=== PATIENT | female | born 1965 | race Caucasian/White ===

== ENCOUNTER 2019-01-02 02:31 | Inpatient (IN) | payer MEDICAID ==
[~2019-01-02] VITALS: Ht 157.5 cm; Wt 104.0 kg
[2019-01-02] MEDS ORDERED: SOD CHLORIDE 0.9% 1,000 ML IV STA ×2 (02:45→04:58)
[2019-01-02] MEDS ORDERED: morphine 4 MG/ML VIAL IV STA (02:45)
[2019-01-02] MEDS ORDERED: ONDANSETRON 4 MG INJ IV STA (02:45)
--- NOTE | 2019-01-02 03:40 | ERD ---
ER Documentation Chief Complaint Chief Complaint upper AP rad to back. no n/v/d. diagnosed recently w/ liver CA HPI 53-year-old female who presents with her family member who is interpreting. It appears the patient was recently diagnosed within the past several weeks with liver cancer of unknown etiology. The patient was recently visiting from [place]. The patient was seen and treated in [place] during which time she had hospitalization, liver biopsy and was told that she had malignancy. There is no follow-up for the patient. She is presenting with persistent abdominal pain and fullness. She denies any fevers or chills. The pain is 8 out of 10, constant. No hematemesis or melena. The patient does not drink regularly. During the patient's encounter translation services were utilized Language: Kinyarwanda Source: Family ROS All systems reviewed and are negative except as per history of present illness. Medications Home Meds Reported Medications Levothyroxine Sodium* (Levothyroxine Sodium*) 100 Mcg Tablet, 100 MCG PO BEFORE BREAKFAST, #30 TAB 01/02/19 Allergies Allergies: Coded Allergies: No Known Allergy (Unverified , 01/02/19) PMhx/Soc Medical and Surgical Hx: pt denies Medical Hx, pt denies Surgical Hx Hx Miscellaneous Medical Probl: Yes (liver ca ) Hx Alcohol Use: No Hx Substance Use: No Hx Tobacco Use: No Smoking Status: Never smoker FmHx Family History: No diabetes Physical Exam Vitals Vital Signs Date Temp Pulse Resp B/P (MAP) Pulse Ox O2 O2 Flow FiO2 Time Delivery Rate 01/02/19 84 18 105/70 98 Room Air 05:00 (82) 01/02/19 87 31 89/59 (69) 94 Room Air 03:06 01/02/19 97.6 88 20 109/63 100 02:36 (78) Physical Exam General: Well developed, well nourished, no acute distress Head: Normocephalic, atraumatic. Eyes: Pupils equally reactive, EOM intact, scleral icterus ENT: Moist mucous membranes Neck: Supple, no lymphadenopathy Respiratory: Lungs clear bilaterally, no distress Cardiovascular: RRR, no murmurs, rubs, or gallops Abdominal: Protuberant with fullness in the right upper quadrant, mild tenderness. No peritonitis. : Deferred MSK: No edema, no unilateral swelling, 5/5 strength Neurologic: Alert and oriented, moving all extremities, normal speech, no focal weakness, no cerebellar signs Skin: No rash Psych: Normal mood Result Diagram: 01/02/19 0301 01/02/19 0301 Results 24 hrs Laboratory Tests Test 01/02/19 03:01 White Blood Count 15.9 10^3/ul Red Blood Count 2.71 10^6/ul Hemoglobin 7.9 g/dl Hematocrit 23.9 % Mean Corpuscular Volume 88.2 fl Mean Corpuscular Hemoglobin 29.2 pg Mean Corpuscular Hemoglobin Concent 33.1 g/dl Red Cell Distribution Width 17.0 % Platelet Count 576 10^3/UL Mean Platelet Volume 8.8 fl Immature Granulocytes % 2.200 % Neutrophils % 79.2 % Lymphocytes % 15.2 % Monocytes % 3.2 % Eosinophils % 0.1 % Basophils % 0.1 % Nucleated Red Blood Cells % 0.7 /100WBC Immature Granulocytes # 0.350 10^3/ul Neutrophils # 12.6 10^3/ul Lymphocytes # 2.4 10^3/ul Monocytes # 0.5 10^3/ul Eosinophils # 0.0 10^3/ul Basophils # 0.0 10^3/ul Nucleated Red Blood Cells # 0.1 10^3/ul Prothrombin Time 13.6 Sec Prothrombin Time Ratio 1.1 INR International Normalized Ratio 1.03 Activated Partial Thromboplast Time 44.5 Sec Sodium Level 142 mmol/L Potassium Level 4.0 mmol/L Chloride Level 110 mmol/L Carbon Dioxide Level 25 mmol/L Anion Gap 7 Blood Urea Nitrogen 14 mg/dl Creatinine 1.50 mg/dl Est Glomerular Filtrat Rate mL/min 36 mL/min Glucose Level 108 mg/dl Calcium Level 8.8 mg/dl Total Bilirubin 0.2 mg/dl Direct Bilirubin 0.00 mg/dl Indirect Bilirubin 0.2 mg/dl Aspartate Amino Transf (AST/SGOT) 112 IU/L Alanine Aminotransferase (ALT/SGPT) 29 IU/L Alkaline Phosphatase 513 IU/L Total Protein 6.0 g/dl Albumin 2.4 g/dl Globulin 3.60 g/dl Albumin/Globulin Ratio 0.66 Lipase 71 U/L Current Medications Medications Dose Sig/Maria Del Carmen Start Time Status Last (Trade) Ordered Route PRN Stop Time Admin Dose Reason Admin Sodium 1,000 ml @ Q1H STAT 01/02/19 DC 01/02/19 Chloride 1,000 mls/hr IV 02:45 03:12 01/02/19 03:44 Morphine 4 mg ONCE STAT 01/02/19 DC 01/02/19 Sulfate IV 02:45 03:13 (morphine) 01/02/19 02:46 Ondansetron 4 mg ONCE STAT 01/02/19 DC 01/02/19 HCl (Zofran IV 02:45 03:12 Inj) 01/02/19 02:46 Sodium 1,000 ml @ Q1H STAT 01/02/19 01/02/19 Chloride 1,000 mls/hr IV 04:58 05:07 01/02/19 05:57 Ondansetron 4 mg BRIDGE ORDER 01/02/19 HCl (Zofran PRN IV 05:30 Inj) NAUSEA/VOMITI 01/03/19 05:29 NG 650 mg ER BRIDGE 01/02/19 Acetaminophen PRN PO 05:30 (Tylenol .MILD PAIN 01/03/19 05:29 Tab) 1-3 OR TEMP Procedures/MDM EKG, MONITORS, & DIAGNOSTIC IMAGING: CT abdomen pelvis Verbal report reveals multiple abnormality's of the liver and gallbladder concerning for malignancy. Limited exam, recommend further imaging with possible contrast versus MRI LAB INTERPRETATION: I reviewed the laboratory testing and it shows anemia, renal insufficiency MEDICAL DECISION MAKING: The patient presents with a new diagnosis of liver malignancy of unclear etiology. Patient had work-up and biopsy at an inpatient but they do not present with any of this information here in the emergency room setting. 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 The family is unsure of any sort of follow-up which I believe is what is prompting the visit to the emergency room other than pain. We will repeat laboratory testing and CT imaging to identify potential life threats. Patient may benefit from hospitalization for further work-up for malignancy though [place] [facility] [place]. ER COURSE: * Patient was given IV fluids and pain control medication. The patient had labile blood pressure but likely secondary to hepatic involvement. No eviden ce of infectious process. Hemorrhagic process. * Given the patient's new malignancy with poor follow-up and persistent abdominal pain I believe inpatient hospitalization would be appropriate to further stage and evaluate this malignancy and transition the patient to outpatient care for her new diagnosis. * Given the lability of her blood pressure and multiple abnormalities of her blood work including anemia and renal insufficiency hospitalization seems appropriate. CONSULTATION: [None] DISPOSITION PLAN: Accepting care team and consultations: I discussed the current laboratory data, diagnostic imaging and emergency care provided. Admitting team: Dr. Callejas Admitting team indication: Insurance directed Departure Diagnosis: Primary Impression: Abdominal pain Abdominal location: generalized Qualified Codes: R10.84 - Generalized abdominal pain Additional Impressions: Intra-abdominal malignant neoplasm Anemia Anemia type: unspecified type Qualified Codes: D64.9 - Anemia, unspecified Acute renal insufficiency Condition: Stable LINK RÍOS MD Jan 02, 2019 03:40
[2019-01-02] MEDS ORDERED: LEVO100T8 PO (04:29)
[2019-01-02] MEDS ORDERED: ONDANSETRON 4 MG INJ IV PRN ×2 (05:30→07:00)
[2019-01-02] MEDS ORDERED: ACETAMINOPHEN 325 MG TAB PO PRN (05:30)
[2019-01-02 06:30] VITALS: BP 105/59; PULSE 79; RESP 18
[2019-01-02 06:46] VITALS: Ht 157.5 cm; Wt 104.0 kg
--- NOTE | 2019-01-02 06:51 | HP ---
Date/Time of Note Date/Time of Note DATE: 01/02/19 TIME: 06:41 Assessment/Plan VTE Prophylaxis Pharmacological prophylaxis: heparin Lines/Catheters IV Catheter Type (from Nrsg): Peripheral IV Assessment/Plan Assessment/Plan 1. Recently diagnosed liver cancer -Patient was recently diagnosed with liver cancer in [place] after a biopsy was done. Patient without follow-up -Oncology consult -Obtain records from [place], then we will do further imaging including metastatic work-up 2. Abdominal pain: Secondary to above -Pain management 3. Anemia, likely of malignancy -Will however evaluate for iron deficiency and check FOBT as well 4. NAILA versus CKD -Nephrology consult -Obtain renal ultrasound -Urine electrolytes Result Diagram: 01/02/19 0301 01/02/19 0301 Results 24hrs Laboratory Tests Test 01/02/19 03:01 White Blood Count 15.9 H Red Blood Count 2.71 L Hemoglobin 7.9 L Hematocrit 23.9 L Mean Corpuscular Volume 88.2 Mean Corpuscular Hemoglobin 29.2 Mean Corpuscular Hemoglobin Concent 33.1 Red Cell Distribution Width 17.0 H Platelet Count 576 H Mean Platelet Volume 8.8 Immature Granulocytes % 2.200 H Neutrophils % 79.2 H Lymphocytes % 15.2 Monocytes % 3.2 Eosinophils % 0.1 Basophils % 0.1 Nucleated Red Blood Cells % 0.7 H Immature Granulocytes # 0.350 H Neutrophils # 12.6 H Lymphocytes # 2.4 Monocytes # 0.5 Eosinophils # 0.0 Basophils # 0.0 Nucleated Red Blood Cells # 0.1 H Prothrombin Time 13.6 Prothrombin Time Ratio 1.1 INR International Normalized Ratio 1.03 Activated Partial Thromboplast Time 44.5 H Sodium Level 142 Potassium Level 4.0 Chloride Level 110 Carbon Dioxide Level 25 Anion Gap 7 Blood Urea Nitrogen 14 Creatinine 1.50 H Est Glomerular Filtrat Rate mL/min 36 L Glucose Level 108 Calcium Level 8.8 Total Bilirubin 0.2 Direct Bilirubin 0.00 Indirect Bilirubin 0.2 Aspartate Amino Transf (AST/SGOT) 112 H Alanine Aminotransferase (ALT/SGPT) 29 Alkaline Phosphatase 513 H Total Protein 6.0 L Albumin 2.4 L Globulin 3.60 H Albumin/Globulin Ratio 0.66 Lipase 71 HPI/ROS Admit Date/Time Admit Date/Time Jan 02, 2019 at 05:28 Hx of Present Illness This is a 53-year-old female with history of recently diagnosed liver cancer who presented to the ER complaining of abdominal pain. Patient was recently diagnosed with liver cancer in [place] (last week). She initially presented to [facility] in [place] complaining of abdominal pain and liver biopsy was performed and reportedly was told she had malignancy. Patient presented here with persistent abdominal pain. She also does not have a follow-up with an oncologist. Patient niece who was at the bedside helped with history. Patient is complaining of epigastric/mid abdominal with radiation to RUQ area. When presented to ER, vitals were stable. Labs shows a WBC of 16,000, hemoglobin 7.9, creatinine 1.5, AST 112, alk phos around 500. CT abdomen/pelvis without contrast shows the following: Diffusely enlarged and inhomogeneous appearance of the liver, appearing to contain multiple mass lesions within. There is also diffuse inhomogeneity within the gallbladder fossa, with enlargement of the gallbladder, without adjacent fat stranding to suggest acute cholecystitis. The findings may reflect primary liver or gallbladder neoplasm. There is associated adenopathy in the arun hepatis. There is some third spacing of fluids with generalized soft tissue anasarca, small bilateral pleural and pericardial effusions and small volume of ascites. No intra-abdominal or pelvic abscess or free air, nor evidence of intestinal obstruction is seen. PMH/Family/Social Past Medical History Past Surgical Hx: other (see hpi) Family History Significant Family History: no pertinent family hx Social History Alcohol Use: none Smoking Status: Never smoker Drug Use: none Exam Constitutional: other (no acute distress) Head: normocephalic, atraumatic Eyes: EOMI, PERRL Respiratory: clear to auscultation, normal air movement Cardiovascular: nl pulses Gastrointestinal: soft Extremities: normal pulses Medications Current Medications Ondansetron HCl (Zofran Inj) 4 mg BRIDGE ORDER PRN IV NAUSEA/VOMITING; Start 01/02/19 at 05:30; Stop 01/03/19 at 05:29 Acetaminophen (Tylenol Tab) 650 mg ER BRIDGE PRN PO .MILD PAIN 1-3 OR TEMP; Start 01/02/19 at 05:30; Stop 01/03/19 at 05:29 IV Flush (NS 3 ml) 3 ml PER PROTOCOL IV ; Start 01/02/19 at 07:00; Status UNV Ondansetron HCl (Zofran Inj) 4 mg Q6H PRN IV NAUSEA/VOMITING; Start 01/02/19 at 07:00; Status UNV Acetaminophen (Tylenol Tab) 650 mg Q6H PRN PO .PAIN 1-3 OR TEMP; Start 01/02/19 at 07:00; Status UNV Albuterol/ Ipratropium (Duoneb) 3 ml Q2H RESP THERAPY PRN HHN SHORTNESS OF BREATH; Start 01/02/19 at 07:00; Status UNV Coded Allergies: No Known Allergy (Unverified , 01/02/19) Social History Smoking Status: Never smoker Exam/Review of Systems Vital Signs Vitals Vital Signs Date Temp Pulse Resp B/P (MAP) Pulse Ox O2 O2 Flow FiO2 Time Delivery Rate 01/02/19 82 18 101/74 98 Room Air 05:52 (83) 01/02/19 97.6 02:36 Intake and Output 01/01/19 01/01/19 01/02/19 1515:00 23:00 07:00 IntakeIntake Total 1000 ml BalanceBalance 1000 ml ELEONORA SCHROEDER MD Jan 02, 2019 06:51
[2019-01-02] MEDS ORDERED: ALBUTEROL/IPRATROPIUM (NEB) 3 ML AMP HHN PRN (07:00)
[2019-01-02 07:46] VITALS: BP 101/61; PULSE 85; RESP 20
[2019-01-02] MEDS: HYDROmorphONE 1 MG/ML SYG IV PRN ×3 (10:04→23:28)
[2019-01-02 13:55] VITALS: BP 109/63; PULSE 101; RESP 20
--- NOTE | 2019-01-02 15:45 | PN ---
Date/Time of Note Date/Time of Note DATE: 01/02/19 TIME: 15:44 Assessment/Plan VTE [place]axis [place] [facility] [place]: 4 SCD applied (from Ns): Yes Pharmacological prophylaxis: heparin Lines/Catheters IV C[facility] Type [facility]from [facility] Saline Lock Assessment/Plan Hospital Course Comfortable No distress RRR CTAB Distended, soft, + HSM No edema A/P: 53 yo female who presents for management of newly diagnosed liver cancer - Oncology consult pending - MRI results noted - Biopsy results from [place] have been requested Result Diagram: 01/02/19 0301 01/02/19 0301 Results 24hrs Laboratory Tests Test 01/02/19 03:01 White Blood Count 15.9 H Red Blood Count 2.71 L Hemoglobin 7.9 L Hematocrit 23.9 L Mean Corpuscular Volume 88.2 Mean Corpuscular Hemoglobin 29.2 Mean Corpuscular Hemoglobin Concent 33.1 Red Cell Distribution Width 17.0 H Platelet Count 576 H Mean Platelet Volume 8.8 Immature Granulocytes % 2.200 H Neutrophils % 79.2 H Lymphocytes % 15.2 Monocytes % 3.2 Eosinophils % 0.1 Basophils % 0.1 Nucleated Red Blood Cells % 0.7 H Immature Granulocytes # 0.350 H Neutrophils # 12.6 H Lymphocytes # 2.4 Monocytes # 0.5 Eosinophils # 0.0 Basophils # 0.0 Nucleated Red Blood Cells # 0.1 H Prothrombin Time 13.6 Prothrombin Time Ratio 1.1 INR International Normalized Ratio 1.03 Activated Partial Thromboplast Time 44.5 H Sodium Level 142 Potassium Level 4.0 Chloride Level 110 Carbon Dioxide Level 25 Anion Gap 7 Blood Urea Nitrogen 14 Creatinine 1.50 H Est Glomerular Filtrat Rate mL/min 36 L Glucose Level 108 Calcium Level 8.8 Total Bilirubin 0.2 Direct Bilirubin 0.00 Indirect Bilirubin 0.2 Aspartate Amino Transf (AST/SGOT) 112 H Alanine Aminotransferase (ALT/SGPT) 29 Alkaline Phosphatase 513 H Total Protein 6.0 L Albumin 2.4 L Globulin 3.60 H Albumin/Globulin Ratio 0.66 Lipase 71 Subjective 24 Hr Interval Summary Free Text/Dictation MRI shows diffuse liver lesions patient is comfortable Exam/Review of Systems Exam Vitals Vital Signs Date Temp Pulse Resp B/P (MAP) Pulse Ox O2 O2 Flow FiO2 Time Delivery Rate 01/02/19 98.6 101 20 109/63 98 13:55 (78) 01/02/19 Room Air 05:52 Intake and Output 01/01/19 01/01/19 01/02/19 1515:00 23:00 07:00 IntakeIntake Total 1000 ml BalanceBalance 1000 ml Results Results 24hrs Laboratory Tests Test 01/02/19 03:01 White Blood Count 15.9 H Red Blood Count 2.71 L Hemoglobin 7.9 L Hematocrit 23.9 L Mean Corpuscular Volume 88.2 Mean Corpuscular Hemoglobin 29.2 Mean Corpuscular Hemoglobin Concent 33.1 Red Cell Distribution Width 17.0 H Platelet Count 576 H Mean Platelet Volume 8.8 Immature Granulocytes % 2.200 H Neutrophils % 79.2 H Lymphocytes % 15.2 Monocytes % 3.2 Eosinophils % 0.1 Basophils % 0.1 Nucleated Red Blood Cells % 0.7 H Immature Granulocytes # 0.350 H Neutrophils # 12.6 H Lymphocytes # 2.4 Monocytes # 0.5 Eosinophils # 0.0 Basophils # 0.0 Nucleated Red Blood Cells # 0.1 H Prothrombin Time 13.6 Prothrombin Time Ratio 1.1 INR International Normalized Ratio 1.03 Activated Partial Thromboplast Time 44.5 H Sodium Level 142 Potassium Level 4.0 Chloride Level 110 Carbon Dioxide Level 25 Anion Gap 7 Blood Urea Nitrogen 14 Creatinine 1.50 H Est Glomerular Filtrat Rate mL/min 36 L Glucose Level 108 Calcium Level 8.8 Total Bilirubin 0.2 Direct Bilirubin 0.00 Indirect Bilirubin 0.2 Aspartate Amino Transf (AST/SGOT) 112 H Alanine Aminotransferase (ALT/SGPT) 29 Alkaline Phosphatase 513 H Total Protein 6.0 L Albumin 2.4 L Globulin 3.60 H Albumin/Globulin Ratio 0.66 Lipase 71 Medications Medication Current Medications Ondansetron HCl (Zofran Inj) 4 mg BRIDGE ORDER PRN IV NAUSEA/VOMITING; Start 01/02/19 at 05:30; Stop 01/03/19 at 05:29 Acetaminophen (Tylenol Tab) 650 mg ER BRIDGE PRN PO .MILD PAIN 1-3 OR TEMP; Start 01/02/19 at 05:30; Stop 01/03/19 at 05:29 IV Flush (NS 3 ml) 3 ml PER PROTOCOL IV ; Start 01/02/19 at 07:00 Ondansetron HCl (Zofran Inj) 4 mg Q6H PRN IV NAUSEA/VOMITING; Start 01/02/19 at 07:00 Acetaminophen (Tylenol Tab) 650 mg Q6H PRN PO .PAIN 1-3 OR TEMP; Start 01/02/19 at 07:00 Albuterol/ Ipratropium (Duoneb) 3 ml Q2H RESP THERAPY PRN HHN SHORTNESS OF BREATH; Start 01/02/19 at 07:00 Hydromorphone HCl (Dilaudid) 1 mg Q3H PRN IV SEVERE PAIN LEVEL 7-10 Last administered on 01/02/19at 10:04; Admin Dose 1 MG; Start 01/02/19 at 08:30 MESSI DORMAN MD Jan 02, 2019 15:45
--- NOTE | 2019-01-02 15:59 | CONS ---
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 Repeat imaging in our hospital shows an inflammed distended gallbladder with multiple liver masses. # Multiple liver masses with concern of possible metastatic neuroendocrine carcinoma from possibly the gallbladder. -The pathology report from the outside hospital is not very clear and I recommend another biopsy of the liver. I am not sure if her pain is from the liver masses or the inflammed gallbladder. If the pain does not subside, then we may need a surgical consult to remove the gallbladder which may help with pain. There are stones in the gallbladder on the MRI. -Will check AFP, CEA, CA 19-9. -Metastatic neuroendocrine tumors are quite rare and can differ widely in terms of proliferation rate. There was no Ki67 to indicate if this is a small cell aggressive cancer. -Unfortunately this looks like a metastatic process and not primary HCC and thus incurable. -The only treatment would be some sort of systemic chemotherapy which can be decided upon outpatient. -Patient will likely be following with Dr. Hutchins and I will coordinate the care with her. -After the biopsy is completed and if patient is controlled, then patient can be d/c and we will follow up with her in our clinic. -Discussed clinical course with the patient and she agrees with the plan. Thank you to Dr. Callejas for allowing us to participate in the care of this patient. Consultation Date/Type/Reason Admit Date/Time Jan 02, 2019 at 05:28 Date of Consultation: Jan 02, 2019 Type of Consult oncology consultation Reason for Consultation liver masses Date/Time of Note DATE: 01/02/19 TIME: 15:46 Hx of Present Illness 53 yo F with PMH hypothyroidism who was in her normal state of health until three weeks prior to admission when she developed epigastric abdominal pain radiating across the side and to the back. She stated that the pain was co nstant and was not relieved with any medication. She denies any nausea, vomiting, diarrhea, or constipation. She denies any weight loss or appetite loss. She denies any hematochezia or melena. She denies any shortness of breath or chest pain. She was living in [place] at the time and thus went to [facility] and a CT scan supposedly show multiple liver masses. She had a biopsy of the mass which showed: Carcinoma with neuroendocrine features (stains were positive for CAM 5.2, CKAE1 /AE3; CK7, CK20, CK903, chromgranin, ER, arginase-1, pax 8 and nuclear beta- catenin were negative) Patient was discharged from the hospital and due to having more family here in [place] moved down here and was admitted for the same abdominal pain. Oncologist in [place] is Dr. Janes Renteria, however patient stated that he did not give them an exact plan of action. CT scan done here showed: Diffusely enlarged and inhomogeneous appearance of the liver, appearing to contain multiple mass lesions within. There is also diffuse inhomogeneity within the gallbladder fossa, with enlargement of the gallbladder, without adjacent fat stranding to suggest acute cholecystitis. The findings may reflect primary liver or gallbladder neoplasm. There is associated adenopathy in the arun hepatis. There is some third spacing of fluids with generalized soft tissue anasarca, small bilateral pleural and pericardial effusions and small volume of ascites. No intra-abdominal or pelvic abscess or free air, nor evidence of intestinal obstruction is seen. MRI abdomen showed: There is prominent enlarged with numerous hepatic mass is seen diffusely throughout the hepatic parenchyma and many of these appear co nfluent encompassing the majority of the hepatic parenchyma resulting in its enlargement. Masses are seen diffusely throughout the left and right hepatic lobes and within the caudate lobe with an expanded appearance. Mild ascites is present with anasarca and this could be related to liver dysfunction. Numerous gallstones are seen without evidence of cholecystitis. Tumor markers pending. PMH: as above PSxH: none SH: denies tobacco, ETOH, or IVDA. FH: Denies any family history of blood disorders or cancers. Meds: see list All: NKDA Constitutional: improved Eyes: no complaints ENT: no complaints Respiratory: no complaints Cardiovascular: no complaints Gastrointestinal: pain Genitourinary: no complaints Musculoskeletal: no complaints Skin: no complaints Neurologic: no complaints Endocrine: no complaints Lymphatic: no complaints Psychological: no complaints, nl mood/affect Immunologic: no complaints Past Medical History Home Meds Reported Medications Levothyroxine Sodium* (Levothyroxine Sodium*) 100 Mcg Tablet, 100 MCG PO BEFORE BREAKFAST, #30 TAB 01/02/19 Medications Current Medications Ondansetron HCl (Zofran Inj) 4 mg BRIDGE ORDER PRN IV NAUSEA/VOMITING; Start 01/02/19 at 05:30; Stop 01/03/19 at 05:29 Acetaminophen (Tylenol Tab) 650 mg ER BRIDGE PRN PO .MILD PAIN 1-3 OR TEMP; Start 01/02/19 at 05:30; Stop 01/03/19 at 05:29 IV Flush (NS 3 ml) 3 ml PER PROTOCOL IV ; Start 01/02/19 at 07:00 Ondansetron HCl (Zofran Inj) 4 mg Q6H PRN IV NAUSEA/VOMITING; Start 01/02/19 at 07:00 Acetaminophen (Tylenol Tab) 650 mg Q6H PRN PO .PAIN 1-3 OR TEMP; Start 01/02/19 at 07:00 Albuterol/ Ipratropium (Duoneb) 3 ml Q2H RESP THERAPY PRN HHN SHORTNESS OF BREATH; Start 01/02/19 at 07:00 Hydromorphone HCl (Dilaudid) 1 mg Q3H PRN IV SEVERE PAIN LEVEL 7-10 Last administered on 01/02/19at 10:04; Admin Dose 1 MG; Start 01/02/19 at 08:30 Allergies: Coded Allergies: No Known Allergy (Unverified , 01/02/19) Social History Smoking Status: Never smoker Exam/Review of Systems Exam Vitals Vital Signs Date Temp Pulse Resp B/P (MAP) Pulse Ox O2 O2 Flow FiO2 Time Delivery Rate 01/02/19 98.6 101 20 109/63 98 13:55 (78) 01/02/19 Room Air 05:52 Intake and Output 01/01/19 01/01/19 01/02/19 1515:00 23:00 07:00 IntakeIntake Total 1000 ml BalanceBalance 1000 ml Constitutional: alert, oriented, well developed Psych: no complaints, nl mood/affect Head: normocephalic, atraumatic Eyes: nl conjunctiva, EOMI, nl lids, nl sclera, PERRL ENMT: nl external ears & nose, nl lips & teeth, nl nasal mucosa & septum Neck: supple, non-tender Respiratory: clear to auscultation, normal air movement Cardiovascular: regular rate and rhythm, nl pulses Gastrointestinal: bowel sounds, distended, rebound or guarding Musculoskeletal: nl extremities to inspection, nl gait and stance Extremities: normal pulses 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, nl mental status, nl speech, nl strength Skin: nl turgor; No rash or lesions Lymph: nl lymph nodes Results Result Diagram: 01/02/19 0301 01/02/19 0301 Results 24hrs Laboratory Tests Test 01/02/19 03:01 White Blood Count 15.9 H Red Blood Count 2.71 L Hemoglobin 7.9 L Hematocrit 23.9 L Mean Corpuscular Volume 88.2 Mean Corpuscular Hemoglobin 29.2 Mean Corpuscular Hemoglobin Concent 33.1 Red Cell Distribution Width 17.0 H Platelet Count 576 H Mean Platelet Volume 8.8 Immature Granulocytes % 2.200 H Neutrophils % 79.2 H Lymphocytes % 15.2 Monocytes % 3.2 Eosinophils % 0.1 Basophils % 0.1 Nucleated Red Blood Cells % 0.7 H Immature Granulocytes # 0.350 H Neutrophils # 12.6 H Lymphocytes # 2.4 Monocytes # 0.5 Eosinophils # 0.0 Basophils # 0.0 Nucleated Red Blood Cells # 0.1 H Prothrombin Time 13.6 Prothrombin Time Ratio 1.1 INR International Normalized Ratio 1.03 Activated Partial Thromboplast Time 44.5 H Sodium Level 142 Potassium Level 4.0 Chloride Level 110 Carbon Dioxide Level 25 Anion Gap 7 Blood Urea Nitrogen 14 Creatinine 1.50 H Est Glomerular Filtrat Rate mL/min 36 L Glucose Level 108 Calcium Level 8.8 Total Bilirubin 0.2 Direct Bilirubin 0.00 Indirect Bilirubin 0.2 Aspartate Amino Transf (AST/SGOT) 112 H Alanine Aminotransferase (ALT/SGPT) 29 Alkaline Phosphatase 513 H Total Protein 6.0 L Albumin 2.4 L Globulin 3.60 H Albumin/Globulin Ratio 0.66 Lipase 71 Medications Medication Current Medications Ondansetron HCl (Zofran Inj) 4 mg BRIDGE ORDER PRN IV NAUSEA/VOMITING; Start 01/02/19 at 05:30; Stop 01/03/19 at 05:29 Acetaminophen (Tylenol Tab) 650 mg ER BRIDGE PRN PO .MILD PAIN 1-3 OR TEMP; Start 01/02/19 at 05:30; Stop 01/03/19 at 05:29 IV Flush (NS 3 ml) 3 ml PER PROTOCOL IV ; Start 01/02/19 at 07:00 Ondansetron HCl (Zofran Inj) 4 mg Q6H PRN IV NAUSEA/VOMITING; Start 01/02/19 at 07:00 Acetaminophen (Tylenol Tab) 650 mg Q6H PRN PO .PAIN 1-3 OR TEMP; Start 01/02/19 at 07:00 Albuterol/ Ipratropium (Duoneb) 3 ml Q2H RESP THERAPY PRN HHN SHORTNESS OF BREATH; Start 01/02/19 at 07:00 Hydromorphone HCl (Dilaudid) 1 mg Q3H PRN IV SEVERE PAIN LEVEL 7-10 Last admi nistered on 01/02/19at 10:04; Admin Dose 1 MG; Start 01/02/19 at 08:30 SHAKA MALCOLM DO Jan 02, 2019 15:58
[2019-01-02] MEDS: NACL 0.9% 3 ML SYG IV SCH (18:11)
[2019-01-02 19:59] VITALS: BP 117/74; PULSE 108; RESP 18
[2019-01-03 02:19] VITALS: BP 116/73; PULSE 109; RESP 18
[2019-01-03] MEDS: HYDROmorphONE 1 MG/ML SYG IV PRN ×5 (05:04→20:09)
[2019-01-03 07:49] VITALS: BP 124/65; PULSE 106; RESP 20
[2019-01-03 13:38] VITALS: BP 117/72; PULSE 10; PULSE 70; RESP 20
[2019-01-03] MEDS: FUROSEMIDE 20 MG INJ IV SCH (15:01)
--- NOTE | 2019-01-03 15:03 | PN ---
Date/Time of Note Date/Time of Note DATE: 01/03/19 TIME: 15:02 Assessment/Plan VTE Prophylaxis Risk score (from Nsg)>0 risk: 5 SCD applied (from Nsg): Yes Pharmacological prophylaxis: heparin Lines/Catheters IV Catheter Type (from Nrsg): Saline Lock Assessment/Plan Hospital Course Comfortable No distress RRR CTAB Distended, soft, + HSM Mild edema A/P: 53 yo female who presents for management of newly diagnosed liver cancer - Oncology consult appreciated. Plan for repeat biopsy this week - Lasix 20 for edema/anasarca - MRI results noted NAILA vs CKD: - Monitor creatinine Result Diagram: 01/03/19 0540 01/03/19 0546 Results 24hrs Laboratory Tests Test 01/03/19 05:40 01/03/19 05:46 01/03/19 05:48 White Blood Count 18.8 H Red Blood Count 2.66 L Hemoglobin 7.8 L Hematocrit 24.3 L Mean Corpuscular Volume 91.4 Mean Corpuscular Hemoglobin 29.3 Mean Corpuscular Hemoglobin Concent 32.1 Red Cell Distribution Width 17.2 H Platelet Count 552 H Mean Platelet Volume 8.9 Immature Granulocytes % 2.100 H Neutrophils % 82.6 H Lymphocytes % 11.2 L Monocytes % 3.8 Eosinophils % 0.1 Basophils % 0.2 Nucleated Red Blood Cells % 0.4 H Immature Granulocytes # 0.390 H Neutrophils # 15.6 H Lymphocytes # 2.1 Monocytes # 0.7 Eosinophils # 0.0 Basophils # 0.0 Nucleated Red Blood Cells # 0.1 H Sodium Level 138 Potassium Level 4.2 Chloride Level 107 Carbon Dioxide Level 25 Anion Gap 6 Blood Urea Nitrogen 13 Creatinine 1.40 H Est Glomerular Filtrat Rate mL/min 39 L Glucose Level 80 Hemoglobin A1c 5.8 Calcium Level 8.8 Phosphorus Level 2.7 Magnesium Level 1.9 Iron Level 22 L Total Iron Binding Capacity 185 L Percent Iron Saturation 12 L Ferritin Pending Total Bilirubin 0.3 Direct Bilirubin 0.00 Indirect Bilirubin 0.3 Aspartate Amino Transf (AST/SGOT) 293 H Alanine Aminotransferase (ALT/SGPT) 51 Alkaline Phosphatase 499 H Total Protein 6.6 Albumin 2.6 L Globulin 4.00 H Albumin/Globulin Ratio 0.65 Triglycerides Level 148 Cholesterol Level 131 LDL Cholesterol, Calculated 81 HDL Cholesterol 20 L Cholesterol/HDL Ratio 6.5 Carcinoembryonic Antigen 1.1 CA 19-9 Antigen 4.4 Thyroid Stimulating Hormone (TSH) 23.200 H Hepatitis B Surface Antigen NEGATIVE Hepatitis B Surface Antibody NEGATIVE Hepatitis C Antibody NEGATIVE Alpha Fetoprotein 3.01 Subjective 24 Hr Interval Summary Free Text/Dictation No change to status Awaiting biopsy Exam/Review of Systems Exam Vitals Vital Signs Date Temp Pulse Resp B/P (MAP) Pulse Ox O2 O2 Flow FiO2 Time Delivery Rate 01/03/19 99.0 70 20 117/72 91 13:38 (87) 01/03/19 Nasal 2.0 08:40 Cannula Intake and Output 01/02/19 01/02/19 01/03/19 1515:00 23:00 07:00 IntakeIntake Total 1080 ml 700 ml 450 ml BalanceBalance 1080 ml 700 ml 450 ml Results Results 24hrs Laboratory Tests Test 01/03/19 05:40 01/03/19 05:46 01/03/19 05:48 White Blood Count 18.8 H Red Blood Count 2.66 L Hemoglobin 7.8 L Hematocrit 24.3 L Mean Corpuscular Volume 91.4 Mean Corpuscular Hemoglobin 29.3 Mean Corpuscular Hemoglobin Concent 32.1 Red Cell Distribution Width 17.2 H Platelet Count 552 H Mean Platelet Volume 8.9 Immature Granulocytes % 2.100 H Neutrophils % 82.6 H Lymphocytes % 11.2 L Monocytes % 3.8 Eosinophils % 0.1 Basophils % 0.2 Nucleated Red Blood Cells % 0.4 H Immature Granulocytes # 0.390 H Neutrophils # 15.6 H Lymphocytes # 2.1 Monocytes # 0.7 Eosinophils # 0.0 Basophils # 0.0 Nucleated Red Blood Cells # 0.1 H Sodium Level 138 Potassium Level 4.2 Chloride Level 107 Carbon Dioxide Level 25 Anion Gap 6 Blood Urea Nitrogen 13 Creatinine 1.40 H Est Glomerular Filtrat Rate mL/min 39 L Glucose Level 80 Hemoglobin A1c 5.8 Calcium Level 8.8 Phosphorus Level 2.7 Magnesium Level 1.9 Iron Level 22 L Total Iron Binding Capacity 185 L Percent Iron Saturation 12 L Ferritin Pending Total Bilirubin 0.3 Direct Bilirubin 0.00 Indirect Bilirubin 0.3 Aspartate Amino Transf (AST/SGOT) 293 H Alanine Aminotransferase (ALT/SGPT) 51 Alkaline Phosphatase 499 H Total Protein 6.6 Albumin 2.6 L Globulin 4.00 H Albumin/Globulin Ratio 0.65 Triglycerides Level 148 Cholesterol Level 131 LDL Cholesterol, Calculated 81 HDL Cholesterol 20 L Cholesterol/HDL Ratio 6.5 Carcinoembryonic Antigen 1.1 CA 19-9 Antigen 4.4 Thyroid Stimulating Hormone (TSH) 23.200 H Hepatitis B Surface Antigen NEGATIVE Hepatitis B Surface Antibody NEGATIVE Hepatitis C Antibody NEGATIVE Alpha Fetoprotein 3.01 Medications Medication Current Medications IV Flush (NS 3 ml) 3 ml PER PROTOCOL IV Last administered on 01/02/19at 18:11; Admin Dose 3 ML; Start 01/02/19 at 07:00 Ondansetron HCl (Zofran Inj) 4 mg Q6H PRN IV NAUSEA/VOMITING; Start 01/02/19 at 07:00 Acetaminophen (Tylenol Tab) 650 mg Q6H PRN PO .PAIN 1-3 OR TEMP; Start 01/02/19 at 07:00 Albuterol/ Ipratropium (Duoneb) 3 ml Q2H RESP THERAPY PRN HHN SHORTNESS OF BREATH; Start 01/02/19 at 07:00 Hydromorphone HCl (Dilaudid) 1 mg Q3H PRN IV SEVERE PAIN LEVEL 7-10 Last administered on 01/03/19at 12:59; Admin Dose 1 MG; Start 01/02/19 at 08:30 Furosemide (Lasix) 20 mg DAILY IV Last administered on 01/03/19at 15:01; Admin Dose 20 MG; Start 01/03/19 at 15:00 MESSI DORMAN MD Jan 03, 2019 15:03
[2019-01-03 19:50] VITALS: BP 122/72; PULSE 114; RESP 16
[2019-01-03] MEDS: POLYETHYLENE GLYCOL 17 GM PACKET PO SCH (20:09)
[2019-01-04] MEDS: HYDROmorphONE 1 MG/ML SYG IV PRN ×6 (00:59→22:36)
[2019-01-04 02:00] VITALS: BP 104/63; PULSE 107; RESP 16
[2019-01-04 07:51] VITALS: BP 108/60; PULSE 101; RESP 20
[2019-01-04] MEDS: FUROSEMIDE 20 MG INJ IV SCH (08:39)
[2019-01-04] MEDS: POLYETHYLENE GLYCOL 17 GM PACKET PO SCH ×2 (08:39→22:24)
--- NOTE | 2019-01-04 10:04 | CONS ---
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 Repeat imaging in our hospital shows an inflammed distended gallbladde r with multiple liver masses. # Multiple liver masses with concern of possible metastatic neuroendocrine carcinoma from possibly the gallbladder. -As stated previously by Dr. Eason, the pathology report from the outside hospital is not very clear and I recommend another biopsy of the liver. I am no t sure if her pain is from the liver masses or the inflammed gallbladder. If the pain does not subside, then we may need a surgical consult to remove the gallbladder which may help with pain. There are stones in the gallbladder on the MRI. -Will check AFP, CEA, CA 19-9. -Metastatic neuroendocrine tumors are quite rare and can differ widely in terms of proliferation rate. There was no Ki67 to indicate if this is a small cell aggressive cancer. -Unfortunately this looks like a metastatic process and not primary HCC and thus incurable. -The only treatment would be some sort of systemic chemotherapy which can be decided upon outpatient. -agree with repeat bx at this time Consultation Date/Type/Reason Admit Date/Time Jan 02, 2019 at 05:28 Initial Consult Date 01/02/19 Type of Consult oncology Reason for Consultation liver mass Requesting Provider: MESSI DORMAN MD Date/Time of Note DATE: 01/04/19 TIME: 10:03 24 HR Interval Summary Free Text/Dictation no acute overnight events. bx results from [facility] were reviewed and revealed neuroendocrine tumor of unknown primary. It did not determine if this was a high grade neuroendocrine tumor vs low grade. pt c/o pain over liver Exam/Review of Systems Exam Vitals Vital Signs Date Temp Pulse Resp B/P (MAP) Pulse Ox O2 O2 Flow FiO2 Time Delivery Rate 01/04/19 Nasal 2.0 08:00 Cannula 01/04/19 98.1 101 20 108/60 98 07:51 (76) Intake and Output 01/03/19 01/03/19 01/04/19 1515:00 23:00 07:00 IntakeIntake Total 1120 ml 480 ml 740 ml BalanceBalance 1120 ml 480 ml 740 ml Constitutional: alert, oriented Psych: no complaints, nl mood/affect Head: normocephalic Eyes: nl conjunctiva ENMT: nl external ears & nose Neck: supple Respiratory: clear to auscultation Results Result Diagram: 01/03/19 0540 01/03/19 0546 Medications Medication Current Medications IV Flush (NS 3 ml) 3 ml PER PROTOCOL IV Last administered on 01/02/19at 18:11; Admin Dose 3 ML; Start 01/02/19 at 07:00 Ondansetron HCl (Zofran Inj) 4 mg Q6H PRN IV NAUSEA/VOMITING; Start 01/02/19 at 07:00 Acetaminophen (Tylenol Tab) 650 mg Q6H PRN PO .PAIN 1-3 OR TEMP; Start 01/02/19 at 07:00 Albuterol/ Ipratropium (Duoneb) 3 ml Q2H RESP THERAPY PRN HHN SHORTNESS OF B REATH; Start 01/02/19 at 07:00 Hydromorphone HCl (Dilaudid) 1 mg Q3H PRN IV SEVERE PAIN LEVEL 7-10 Last administered on 01/04/19at 08:43; Admin Dose 1 MG; Start 01/02/19 at 08:30 Furosemide (Lasix) 20 mg DAILY IV Last administered on 01/04/19 08:39; Admin Dose 20 MG; Start 01/03/19 at 15:00 Polyethylene Glycol (Miralax) 17 gm BID PO Last administered on 01/04/19 08:39; Admin Dose 17 GM; Start 01/03/19 at 21:00 AALIYAH BUTLER M.D. Jan 04, 2019 10:04
[2019-01-04 14:05] VITALS: BP 103/57; PULSE 105; RESP 20
--- NOTE | 2019-01-04 16:18 | PN ---
Date/Time of Note Date/Time of Note DATE: 01/04/19 TIME: 16:18 Assessment/Plan VTE Prophylaxis Risk score (from Nsg)>0 risk: 5 SCD applied (from Nsg): Yes Pharmacological prophylaxis: heparin Lines/Catheters IV Catheter Type (from Nrsg): Saline Lock Assessment/Plan Hospital Course Comfortable No distress RRR CTAB Distended, soft, + HSM Mild edema A/P: 53 yo female who presents for management of newly diagnosed liver cancer - Oncology consult appreciated. Plan for repeat biopsy tomorrow - Lasix 20 for edema/anasarca - MRI results noted NAILA vs CKD: - Monitor creatinine Result Diagram: 01/03/19 0540 01/03/19 0546 Results 24hrs Laboratory Tests Test 01/04/19 10:29 Prothrombin Time 15.3 H Prothrombin Time Ratio 1.2 INR International Normalized Ratio 1.20 Activated Partial Thromboplast Time 48.7 H Subjective 24 Hr Interval Summary Free Text/Dictation Awaiting biopys, planned for tomorrow Exam/Review of Systems Exam Vitals Vital Signs Date Temp Pulse Resp B/P (MAP) Pulse Ox O2 O2 Flow FiO2 Time Delivery Rate 01/04/19 98.9 105 20 103/57 96 14:05 (72) 01/04/19 Nasal 2.0 08:00 Cannula Intake and Output 01/03/19 01/03/19 01/04/19 1515:00 23:00 07:00 IntakeIntake Total 1120 ml 480 ml 740 ml BalanceBalance 1120 ml 480 ml 740 ml Results Results 24hrs Laboratory Tests Test 01/04/19 10:29 Prothrombin Time 15.3 H Prothrombin Time Ratio 1.2 INR International Normalized Ratio 1.20 Activated Partial Thromboplast Time 48.7 H Medications Medication Current Medications IV Flush (NS 3 ml) 3 ml PER PROTOCOL IV Last administered on 01/02/19at 18:11; Admin Dose 3 ML; Start 01/02/19 at 07:00 Ondansetron HCl (Zofran Inj) 4 mg Q6H PRN IV NAUSEA/VOMITING; Start 01/02/19 at 07:00 Acetaminophen (Tylenol Tab) 650 mg Q6H PRN PO .PAIN 1-3 OR TEMP; Start 01/02/19 at 07:00 Albuterol/ Ipratropium (Duoneb) 3 ml Q2H RESP THERAPY PRN HHN SHORTNESS OF BREATH; Start 01/02/19 at 07:00 Hydromorphone HCl (Dilaudid) 1 mg Q3H PRN IV SEVERE PAIN LEVEL 7-10 Last adm inistered on 01/04/19 13:32; Admin Dose 1 MG; Start 01/02/19 at 08:30 Furosemide (Lasix) 20 mg DAILY IV Last administered on 01/04/19 08:39; Admin Dose 20 MG; Start 01/03/19 at 15:00 Polyethylene Glycol (Miralax) 17 gm BID PO Last administered on 01/04/19 08:39; Admin Dose 17 GM; Start 01/03/19 at 21:00 MESSI DORMAN MD Jan 04, 2019 16:18
[2019-01-04 19:46] VITALS: BP 123/67; PULSE 115; RESP 18
[2019-01-04 20:33] VITALS: PULSE 107
[2019-01-04 21:47] VITALS: PULSE 104
[2019-01-05 01:48] VITALS: BP 103/61; PULSE 107; RESP 20
[2019-01-05] MEDS: HYDROmorphONE 1 MG/ML SYG IV PRN ×5 (02:51→21:11)
[2019-01-05 07:46] VITALS: BP 108/60; PULSE 106; RESP 20
[2019-01-05] MEDS ORDERED: FENTAnyl 50 MCG/ML VIAL ONE ×2 (08:51→08:52)
[2019-01-05] MEDS ORDERED: MIDAZOLAM 1 MG/ML 2 ML INJ ONE (08:51)
[2019-01-05] MEDS ORDERED: LIDOCAINE 1% (MDV) 20 ML INJ ONE (09:26)
[2019-01-05] MEDS ORDERED: GELATIN 12MM X 7 MM SPONGE ONE (09:26)
[2019-01-05] MEDS: POLYETHYLENE GLYCOL 17 GM PACKET PO SCH ×2 (11:23→21:10)
[2019-01-05] MEDS: FUROSEMIDE 20 MG INJ IV SCH (11:23)
--- NOTE | 2019-01-05 12:17 | CONS ---
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 Repeat imaging in our hospital shows an inflammed distended gallbladde r with multiple liver masses. # Multiple liver masses with concern of possible metastatic neuroendocrine carcinoma from possibly the gallbladder. -bx at [facility] was consistent with adenocarcinoma -will order ANGELA testing as well to see if there are any targetable lesions -will start chemotherapy as an out patient -will discuss placing port a cath in the hospital in preparation for chemo Consultation Date/Type/Reason Admit Date/Time Jan 02, 2019 at 05:28 Initial Consult Date 01/02/19 Type of Consult oncology Reason for Consultation liver mass Requesting Provider: MESSI DORMAN MD Date/Time of Note DATE: 01/05/19 TIME: 12:12 24 HR Interval Summary Free Text/Dictation no acute overnight events. pt still has pain ATC Exam/Review of Systems Exam Vitals Vital Signs Date Temp Pulse Resp B/P (MAP) Pulse Ox O2 O2 Flow FiO2 Time Delivery Rate 01/05/19 Nasal 2.0 08:25 Cannula 01/05/19 98.4 106 20 108/60 95 07:46 (76) Intake and Output 01/04/19 01/04/19 01/05/19 1515:00 23:00 07:00 IntakeIntake Total 720 ml 600 ml 480 ml BalanceBalance 720 ml 600 ml 480 ml Constitutional: alert, oriented Psych: no complaints Head: normocephalic Eyes: nl conjunctiva ENMT: nl external ears & nose Neck: supple Respiratory: clear to auscultation Cardiovascular: regular rate and rhythm Gastrointestinal: soft Musculoskeletal: nl extremities to inspection Extremities: normal pulses Results Result Diagram: 01/05/19 0430 01/05/19 0430 Results 24hrs Laboratory Tests Test 01/05/19 04:30 White Blood Count 18.4 H Red Blood Count 2.50 L Hemoglobin 7.1 L Hematocrit 22.1 L Mean Corpuscular Volume 88.4 Mean Corpuscular Hemoglobin 28.4 L Mean Corpuscular Hemoglobin Concent 32.1 Red Cell Distribution Width 17.4 H Platelet Count 525 H Mean Platelet Volume 9.4 Immature Granulocytes % 2.000 H Neutrophils % 79.2 H Lymphocytes % 13.6 L Monocytes % 4.9 Eosinophils % 0.1 Basophils % 0.2 Nucleated Red Blood Cells % 0.4 H Immature Granulocytes # 0.370 H Neutrophils # 14.6 H Lymphocytes # 2.5 Monocytes # 0.9 Eosinophils # 0.0 Basophils # 0.0 Nucleated Red Blood Cells # 0.1 H Sodium Level 138 Potassium Level 4.1 Chloride Level 104 Carbon Dioxide Level 28 Anion Gap 6 Blood Urea Nitrogen 14 Creatinine 1.30 H Est Glomerular Filtrat Rate mL/min 43 L Glucose Level 94 Calcium Level 9.2 Medications Medication Current Medications IV Flush (NS 3 ml) 3 ml PER PROTOCOL IV Last administered on 01/02/19 18:11; Admin Dose 3 ML; Start 01/02/19 at 07:00 Ondansetron HCl (Zofran Inj) 4 mg Q6H PRN IV NAUSEA/VOMITING; Start 01/02/19 at 07:00 Acetaminophen (Tylenol Tab) 650 mg Q6H PRN PO .PAIN 1-3 OR TEMP; Start 01/02/19 at 07:00 Albuterol/ Ipratropium (Duoneb) 3 ml Q2H RESP THERAPY PRN HHN SHORTNESS OF BREATH; Start 01/02/19 at 07:00 Hydromorphone HCl (Dilaudid) 1 mg Q3H PRN IV SEVERE PAIN LEVEL 7-10 Last administered on 01/05/19 11:23; Admin Dose 1 MG; Start 01/02/19 at 08:30 Furosemide (Lasix) 20 mg DAILY IV Last administered on 01/05/19 11:23; Admin Dose 20 MG; Start 01/03/19 at 15:00 Polyethylene Glycol (Miralax) 17 gm BID PO Last administered on 01/05/19 11:23; Admin Dose 17 GM; Start 01/03/19 at 21:00 AALIYAH BUTLER M.D. Jan 05, 2019 12:17
[2019-01-05 14:33] VITALS: BP 102/60; PULSE 108; RESP 20
--- NOTE | 2019-01-05 14:43 | HPN ---
Date/Time of Note Date/Time of Note DATE: 01/05/19 TIME: 14:42 Interval H&P Admission Note Pt. seen H&P reviewed: No system changes DO MEEKS MD Jan 05, 2019 14:43
--- NOTE | 2019-01-05 18:04 | PN ---
Date/Time of Note Date/Time of Note DATE: 01/05/19 TIME: 18:04 Assessment/Plan VTE Prophylaxis Risk score (from Ns)>0 risk: 6 SCD applied (from Ns): Yes Pharmacological prophylaxis: heparin Lines/Catheters IV Catheter Type (from Nrs): Saline Lock Assessment/Plan Hospital Course Comfortable No distress RRR CTAB Distended, soft, + HSM Mild edema A/P: 53 yo female who presents for management of newly diagnosed liver cancer - Oncology consult appreciated. s/p repeate biopsy - Needs chemo port to be placed - Lasix 20 for edema/anasarca - MRI results noted NAILA vs CKD: - Monitor creatinine Result Diagram: 01/05/1942901/05/19 043 Results 24hrs Laboratory Tests Test 01/05/19 04:30 White Blood Count 18.4 H Red Blood Count 2.50 L Hemoglobin 7.1 L Hematocrit 22.1 L Mean Corpuscular Volume 88.4 Mean Corpuscular Hemoglobin 28.4 L Mean Corpuscular Hemoglobin Concent 32.1 Red Cell Distribution Width 17.4 H Platelet Count 525 H Mean Platelet Volume 9.4 Immature Granulocytes % 2.000 H Neutrophils % 79.2 H Lymphocytes % 13.6 L Monocytes % 4.9 Eosinophils % 0.1 Basophils % 0.2 Nucleated Red Blood Cells % 0.4 H Immature Granulocytes # 0.370 H Neutrophils # 14.6 H Lymphocytes # 2.5 Monocytes # 0.9 Eosinophils # 0.0 Basophils # 0.0 Nucleated Red Blood Cells # 0.1 H Sodium Level 138 Potassium Level 4.1 Chloride Level 104 Carbon Dioxide Level 28 Anion Gap 6 Blood Urea Nitrogen 14 Creatinine 1.30 H Est Glomerular Filtrat Rate mL/min 43 L Glucose Level 94 Calcium Level 9.2 Subjective 24 Hr Interval Summary Free Text/Dictation Doing well s/p biospy Exam/Review of Systems Exam Vitals Vital Signs Date Temp Pulse Resp B/P (MAP) Pulse Ox O2 O2 Flow FiO2 Time Delivery Rate 01/05/19 99.0 108 20 102/60 93 14:33 (74) 01/05/19 Nasal 2.0 08:25 Cannula Intake and Output 01/04/19 01/04/19 01/05/19 1515:00 23:00 07:00 IntakeIntake Total 720 ml 600 ml 480 ml BalanceBalance 720 ml 600 ml 480 ml Results Results 24hrs Laboratory Tests Test 01/05/19 04:30 White Blood Count 18.4 H Red Blood Count 2.50 L Hemoglobin 7.1 L Hematocrit 22.1 L Mean Corpuscular Volume 88.4 Mean Corpuscular Hemoglobin 28.4 L Mean Corpuscular Hemoglobin Concent 32.1 Red Cell Distribution Width 17.4 H Platelet Count 525 H Mean Platelet Volume 9.4 Immature Granulocytes % 2.000 H Neutrophils % 79.2 H Lymphocytes % 13.6 L Monocytes % 4.9 Eosinophils % 0.1 Basophils % 0.2 Nucleated Red Blood Cells % 0.4 H Immature Granulocytes # 0.370 H Neutrophils # 14.6 H Lymphocytes # 2.5 Monocytes # 0.9 Eosinophils # 0.0 Basophils # 0.0 Nucleated Red Blood Cells # 0.1 H Sodium Level 138 Potassium Level 4.1 Chloride Level 104 Carbon Dioxide Level 28 Anion Gap 6 Blood Urea Nitrogen 14 Creatinine 1.30 H Est Glomerular Filtrat Rate mL/min 43 L Glucose Level 94 Calcium Level 9.2 Medications Medication Current Medications IV Flush (NS 3 ml) 3 ml PER PROTOCOL IV Last administered on 01/02/19at 18:11; Admin Dose 3 ML; Start 01/02/19 at 07:00 Ondansetron HCl (Zofran Inj) 4 mg Q6H PRN IV NAUSEA/VOMITING; Start 01/02/19 at 07:00 Acetaminophen (Tylenol Tab) 650 mg Q6H PRN PO .PAIN 1-3 OR TEMP; Start 01/02/19 at 07:00 Albuterol/ Ipratropium (Duoneb) 3 ml Q2H RESP THERAPY PRN HHN SHORTNESS OF BREATH; Start 01/02/19 at 07:00 Hydromorphone HCl (Dilaudid) 1 mg Q3H PRN IV SEVERE PAIN LEVEL 7-10 Last administered on 01/05/19at 17:04; Admin Dose 1 MG; Start 01/02/19 at 08:30 Furosemide (Lasix) 20 mg DAILY IV Last administered on 01/05/19 11:23; Admin Dose 20 MG; Start 01/03/19 at 15:00 Polyethylene Glycol (Miralax) 17 gm BID PO Last administered on 01/05/19 11:23; Admin Dose 17 GM; Start 01/03/19 at 21:00 MESSI DORMAN MD Jan 05, 2019 18:04
[2019-01-05 19:44] VITALS: BP 124/71; PULSE 113; RESP 19
[2019-01-05] MEDS: ACETAMINOPHEN 325 MG TAB PO PRN (23:11)
[2019-01-06 02:24] VITALS: BP 98/58; PULSE 99; RESP 18
[2019-01-06] MEDS: HYDROmorphONE 1 MG/ML SYG IV PRN ×5 (04:21→21:22)
[2019-01-06 07:56] VITALS: BP 112/67; PULSE 103; RESP 18
[2019-01-06] MEDS: POLYETHYLENE GLYCOL 17 GM PACKET PO SCH ×2 (08:18→21:21)
[2019-01-06] MEDS: FUROSEMIDE 20 MG INJ IV SCH (08:18)
[2019-01-06] MEDS: NACL 0.9% 3 ML SYG IV SCH (08:18)
[2019-01-06] MEDS ORDERED: LIDOCAINE 1%/EPI 30 ML INJ ONE (11:23)
--- NOTE | 2019-01-06 11:48 | CONS ---
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 Repeat imaging in our hospital shows an inflammed distended gallbladde r with multiple liver masses. # Multiple liver masses with concern of possible metastatic neuroendocrine carcinoma from possibly the gallbladder. -bx at [facility] was consistent with adenocarcinoma -will order ANGELA testing as well to see if there are any targetable lesions -will start chemotherapy as an out patient -place port a cath in the hospital in preparation for chemo -continue current pain meds Consultation Date/Type/Reason Admit Date/Time Jan 02, 2019 at 05:28 Initial Consult Date 01/02/19 Type of Consult oncology Reason for Consultation cholangiocarcinoma Requesting Provider: MESSI DORMAN MD Date/Time of Note DATE: 01/06/19 TIME: 11:46 24 HR Interval Summary Free Text/Dictation no acute overnight events. still requiring pain meds ATC. to have a port a cath placed today Constitutional: poor po Exam/Review of Systems Exam Vitals Vital Signs Date Temp Pulse Resp B/P (MAP) Pulse Ox O2 O2 Flow FiO2 Time Delivery Rate 01/06/19 99.0 103 18 112/67 93 Nasal 07:56 (82) Cannula 01/05/19 2.0 20:00 Intake and Output 01/05/19 01/05/19 01/06/19 1515:00 23:00 07:00 IntakeIntake Total 480 ml 480 ml BalanceBalance 480 ml 480 ml Constitutional: alert, distress, frail Psych: anxiety, depression Head: normocephalic Eyes: nl conjunctiva ENMT: nl external ears & nose Neck: supple Respiratory: clear to auscultation Cardiovascular: regular rate and rhythm Gastrointestinal: soft Musculoskeletal: nl extremities to inspection Extremities: normal pulses Results Result Diagram: 01/05/19 04301/05/19 043 Medications Medication Current Medications IV Flush (NS 3 ml) 3 ml PER PROTOCOL IV Last administered on 01/06/19at 08:18; Admin Dose 3 ML; Start 01/02/19 at 07:00 Ondansetron HCl (Zofran Inj) 4 mg Q6H PRN IV NAUSEA/VOMITING; Start 01/02/19 at 07:00 Acetaminophen (Tylenol Tab) 650 mg Q6H PRN PO .PAIN 1-3 OR TEMP Last administered on 01/05/19 23:11; Admin Dose 650 MG; Start 01/02/19 at 07:00 Albuterol/ Ipratropium (Duoneb) 3 ml Q2H RESP THERAPY PRN HHN SHORTNESS OF BREATH; Start 01/02/19 at 07:00 Hydromorphone HCl (Dilaudid) 1 mg Q3H PRN IV SEVERE PAIN LEVEL 7-10 Last administered on 01/06/19 08:18; Admin Dose 1 MG; Start 01/02/19 at 08:30 Furosemide (Lasix) 20 mg DAILY IV Last administered on 01/06/19 08:18; Admin Dose 20 MG; Start 01/03/19 at 15:00 Polyethylene Glycol (Miralax) 17 gm BID PO Last administered on 01/06/19 08:18; Admin Dose 17 GM; Start 01/03/19 at 21:00 AALIYAH BUTLER M.D. Jan 06, 2019 11:48
[2019-01-06] MEDS ORDERED: FENTAnyl 50 MCG/ML VIAL ONE ×2 (11:54→12:47)
[2019-01-06] MEDS ORDERED: HEPARIN 1000 UNITS/ML 10 ML INJ ONE (11:54)
[2019-01-06] MEDS ORDERED: MIDAZOLAM 1 MG/ML 2 ML INJ ONE ×2 (11:54→12:47)
[2019-01-06] MEDS ORDERED: POLYMYXIN/BACITRACIN 1L IRRIG ONE (12:12)
[2019-01-06] MEDS ORDERED: CEFAZOLIN 1 GM/50 ML (PMX) 0 ML IVPB ONE (12:19)
[2019-01-06] MEDS ORDERED: CEFAZOLIN 1 GM/50 ML (PMX) 50 ML IVPB ONE (12:21)
[2019-01-06 15:25] VITALS: BP 116/66; PULSE 118; RESP 18
--- NOTE | 2019-01-06 16:47 | PN ---
Date/Time of Note Date/Time of Note DATE: 01/06/19 TIME: 16:46 Assessment/Plan VTE Prophylaxis Risk score (from Nsg)>0 risk: 6 SCD applied (from Nsg): Yes Pharmacological prophylaxis: heparin Lines/Catheters IV Catheter Type (from Nrsg): Saline Lock Assessment/Plan Hospital Course Comfortable No distress RRR CTAB Distended, soft, + HSM Mild edema A/P: 53 yo female who presents for management of newly diagnosed liver cancer - Oncology consult appreciated. s/p repeate biopsy - Needs chemo port to be placed - Lasix 20 for edema/anasarca - MRI results noted NAILA vs CKD: - Monitor creatinine - Continue lasix Check TTE given edema Result Diagram: 01/05/19 0430 01/06/19 1439 Results 24hrs Laboratory Tests Test 01/06/19 14:39 Sodium Level 138 Potassium Level 3.6 Chloride Level 103 Carbon Dioxide Level 27 Anion Gap 8 Blood Urea Nitrogen 13 Creatinine 1.17 H Est Glomerular Filtrat Rate mL/min 49 L Glucose Level 74 Calcium Level 8.9 Thyroid Stimulating Hormone (TSH) Pending Subjective 24 Hr Interval Summary Free Text/Dictation Went for chest port placement today Exam/Review of Systems Exam Vitals Vital Signs Date Temp Pulse Resp B/P (MAP) Pulse Ox O2 O2 Flow FiO2 Time Delivery Rate 01/06/19 98.7 118 18 116/66 95 Nasal 15:25 (83) Cannula 01/06/19 2.0 08:00 Intake and Output 01/05/19 01/05/19 01/06/19 1515:00 23:00 07:00 IntakeIntake Total 480 ml 480 ml BalanceBalance 480 ml 480 ml Results Results 24hrs Laboratory Tests Test 01/06/19 14:39 Sodium Level 138 Potassium Level 3.6 Chloride Level 103 Carbon Dioxide Level 27 Anion Gap 8 Blood Urea Nitrogen 13 Creatinine 1.17 H Est Glomerular Filtrat Rate mL/min 49 L Glucose Level 74 Calcium Level 8.9 Thyroid Stimulating Hormone (TSH) Pending Medications Medication Current Medications IV Flush (NS 3 ml) 3 ml PER PROTOCOL IV Last administered on 01/06/19at 08:18; Admin Dose 3 ML; Start 01/02/19 at 07:00 Ondansetron HCl (Zofran Inj) 4 mg Q6H PRN IV NAUSEA/VOMITING; Start 01/02/19 at 07:00 Acetaminophen (Tylenol Tab) 650 mg Q6H PRN PO .PAIN 1-3 OR TEMP Last administered on 01/05/19 23:11; Admin Dose 650 MG; Start 01/02/19 at 07:00 Albuterol/ Ipratropium (Duoneb) 3 ml Q2H RESP THERAPY PRN HHN SHORTNESS OF BREATH; Start 01/02/19 at 07:00 Hydromorphone HCl (Dilaudid) 1 mg Q3H PRN IV SEVERE PAIN LEVEL 7-10 Last administered on 01/06/19at 14:49; Admin Dose 1 MG; Start 01/02/19 at 08:30 Furosemide (Lasix) 20 mg DAILY IV Last administered on 01/06/19 08:18; Admin Dose 20 MG; Start 01/03/19 at 15:00 Polyethylene Glycol (Miralax) 17 gm BID PO Last administered on 01/06/19 08:18; Admin Dose 17 GM; Start 01/03/19 at 21:00 MESSI DORMAN MD Jan 06, 2019 16:47
[2019-01-06] MEDS ORDERED: BISACODYL (EC) 5 MG TAB PO PRN (19:00)
[2019-01-06 19:47] VITALS: BP 114/67; PULSE 103; RESP 18
[2019-01-06] MEDS: ACETAMINOPHEN 325 MG TAB PO PRN (23:54)
[2019-01-07] MEDS: HYDROmorphONE 1 MG/ML SYG IV PRN ×5 (00:50→15:19)
[2019-01-07 02:08] VITALS: BP 112/67; PULSE 106; RESP 19
[2019-01-07 08:26] VITALS: BP 110/69; PULSE 104; RESP 20
[2019-01-07] MEDS: POLYETHYLENE GLYCOL 17 GM PACKET PO SCH (08:54)
[2019-01-07] MEDS: FUROSEMIDE 20 MG INJ IV SCH (08:55)
--- NOTE | 2019-01-07 09:57 | RADRPT ---
Echocardiogram Report Patient Name: Stefany GILBERTnt ID: [id number] : 1965 (53y 11m)Study Date: 01/07/2019 7:06:00 AM Gender: FAccession #: [id number] Tech: Spike Araiza [facility] Location: 2273 Ref.Physician: MESSI DORMAN Height(Cm): BSA: Weight(Kg): Quality: AdequateOrder Physician: MESSI DORMAN Account #: Procedures: Echocardiographic Report: Transthoracic echocardiogram with complete 2D, M-Mode, and doppler examination. Indications: Congestive Heart Failure. Measurements: 2D/M Mode Doppler Measurement Value Normal Range Measurement Value Normal Range LVIDd 2D 5.0 [ 3.8 - 5.2 ] cm AV Peak Andre 1.9 [ 100.0 - 170.0 ] cm/sec LVIDs 2D 2.9 [ 2.2 - 3.5 ] cm AV Peak PG 14.0 [ 2.0 - 9.0 ] mmHg LVPWd 2D 0.8 [ 0.6 - 0.9 ] cm LVOT Peak Andre 1.3 [ 70.0 - 110.0 ] cm/sec IVSd 2D 0.7 [ 0.6 - 0.9 ] cm LVOT Peak PG 6.0 [ 2.0 - 6.0 ] mmHg AoR Diam 2D 2.9 [ 2.3 - 3.1 ] cm MV E Peak Andre 0.7 [ 60.0 - 130.0 ] cm/sec EDV 2D 119.0 [ 46.0 - 106.0 ] ml MV A Peak Andre 1.0 [ 100.0 - 120.0 ] cm/sec ESV 2D 33.0 [ 14.0 - 42.0 ] ml MV E/A 0.7 [ 0.8 - 1.5 ] ratio EF 2D 72.3 [ 54.0 - 74.0 ] percent MV Decel Time 148 [ 104 - 258 ] msec LA Dimen 2D 3.6 [ 2.7 - 3.8 ] cm MV E/A 0.7 [ 0.8 - 1.5 ] ratio TR Peak Andre 1.8 [ 100.0 - 280.0 ] cm/sec TR Peak PG 13.0 mmHg RVSP 23.0 [ 10.0 - 36.0 ] mmHg RA Pressure 10.0 mmHg Findings: Left Ventricle: Lower limits of normal systolic function. Normal left ventricular cavity size. Normal left ventricular wall thickness. Ejection fraction is visually estimated at 50-55 %. Tissue Doppler/Mitral Doppler indices are consistent with impaired relaxation (Stage I diastolic dysfunction). Right Ventricle: Normal right ventricular size. Normal right ventricular systolic function. Left Atrium: The left atrium is normal in size. Right Atrium: The right atrium is normal in size. Mitral Valve: Normal appearance and function of the mitral valve with trace physiologic regurgitation. Aortic Valve: Normal appearance of the aortic valve. No significant aortic stenosis or insufficiency. Tricuspid Valve: Normal appearance of the tricuspid valve. The estimated Peak RVSP is 23 mmHg. There is trace tricuspid regurgitation. Pulmonic Valve: Pulmonic valve not well visualized. Pericardium: Trivial pericardial effusion. Aorta: Normal aortic root. IVC: Normal size and normal respiratory collapse consistent with normal right atrial pressure. Conclusions: Lower limits of normal systolic function. Normal left ventricular cavity size. Normal left ventricular wall thickness. Ejection fraction is visually estimated at 50-55 %. Tissue Doppler/Mitral Doppler indices are consistent with impaired relaxation (Stage I diastolic dysfunction). Normal appearance and function of the mitral valve with trace physiologic regurgitation. Normal appearance of the aortic valve. No significant aortic stenosis or insufficiency. Normal appearance of the tricuspid valve. The estimated Peak RVSP is 23 mmHg. There is trace tricuspid regurgitation. Trivial pericardial effusion. Normal size and normal respiratory collapse consistent with normal right atrial pressure. Electronically Signed By: Ruiz Schroeder 2019-01-07 09:56:43 PDT
--- NOTE | 2019-01-07 14:48 | PDOCDIS ---
Discharge Instructions DIAGNOSIS Discharge Diagnosis Carcinoma CONDITION [id number] Patient Condition: [id number] Stable FOLLOW UP/APPOINTMENTS Follow-up Plan Make an appointment with Dr Hutchins to arrange for chemotherapy. Her phone number is Return to the hospital if you have any concerning symptoms MESSI DORMAN MD Jan 07, 2019 14:48
--- NOTE | 2019-01-07 14:49 | DS ---
Date/Time of Note Date/Time of Note DATE: 01/07/19 TIME: 14:48 Discharge Summary Admission/Discharge Info Admit Date/Time Jan 02, 2019 at 05:28 Discharge Date/Time Discharge Diagnosis Carcinoma Patient Condition: Stable Hospital Course 53 yo female who presents for management of newly diagnosed liver cancer - Oncology consult appreciated. They recommended repeat biopsy which was performed by IR and which shows Poorly-differentiated carcinoma - A chemo port was placed - She will follow up with Dr Hutchins in clinic for further care She was also found to have hypervolemia and given IV lasix while in house. TTE showed some diastolic disfunction. She was given 20 mg PO lasix at discharge Home Meds Reported Medications Levothyroxine Sodium* (Levothyroxine Sodium*) 100 Mcg Tablet, 100 MCG PO BEFORE BREAKFAST, #30 TAB 01/02/19 Follow-up Plan Make an appointment with Dr Hutchins to arrange for chemotherapy. Her phone number is Return to the hospital if you have any concerning symptoms Primary Care Provider Care Physician No Primary Pending Labs Laboratory Tests Test 01/07/19 05:11 Stool Occult Blood NEGATIVE (NEGATIVE) MESSI DORMAN MD Jan 07, 2019 14:49
[2019-01-07 15:17] VITALS: BP 115/65; PULSE 102; RESP 20
== END 2019-01-07 16:55 | disposition home or self-care (01) | DRG 421 ==
LOC: E/R 02:31 → 2NE 05:28
PROVIDERS: ADMIT Internal Medicine; ATTEND Internal Medicine
PROC: 0FB10ZX Excision of Right Lobe Liver, Open Approach, Diagnostic (ICD-10-PCS; principal; 2019-01-05)
PROC: 0JH60WZ Insertion of Totally Implantable Vascular Access Device into Chest Subcutaneous Tissue and Fascia, Open Approach (ICD-10-PCS; 2019-01-05)
PROC: 02HV33Z Insertion of Infusion Device into Superior Vena Cava, Percutaneous Approach (ICD-10-PCS; 2019-01-05)
PROC: B245ZZ4 Ultrasonography of Left Heart, Transesophageal (ICD-10-PCS; 2019-01-07)
DX: C78.7 Secondary malignant neoplasm of liver and intrahepatic bile duct (principal); N17.9 Acute kidney failure, unspecified; Z68.41 Body mass index [BMI] 40.0-44.9, adult; I12.9 Hypertensive chronic kidney disease with stage 1 through stage 4 chronic kidney disease, or unspecified chronic kidney disease; N18.9 Chronic kidney disease, unspecified; E66.01 Morbid (severe) obesity due to excess calories; D64.9 Anemia, unspecified; C80.1 Malignant (primary) neoplasm, unspecified; K80.80 Other cholelithiasis without obstruction; E03.9 Hypothyroidism, unspecified; E87.70 Fluid overload, unspecified
CPT/HCPCS: 36415; 36561; 71045; 71250; 74176; 74182; 76775; 76942; 77012; 80048; 80053; 80061; 82105; 82270; 82378; 82728; 83036; 83540; 83690; 83735; 84100; 84439; 84443; 85025; 85610; 85730; 86300; 86301; 86706; 86803; 87340; 88307; 88313; 88341; 88342; 93306; 96361; 96374; 96375; C1788; J0690; J1170; J1644; J1940; J2250; J2270; J2405; J3010; J7030

== ENCOUNTER 2019-02-09 16:07 | Inpatient (IN) | payer MEDICAID, OTHER ==
[~2019-02-09] VITALS: Ht 165.1 cm; Wt 105.0 kg
[~2019-02-09 16:07] MED LIST: HYDR-3980 PO; LEVO100T8 PO; MORP-58 PO
[2019-02-09 16:11] VITALS: Ht 165.1 cm; Wt 105.0 kg
--- NOTE | 2019-02-09 16:29 | ERD ---
ER Documentation Chief Complaint Chief Complaint sent by pmd, H/H 5.9/18.5, generalize pain HPI The patient is a 53-year-old female, presenting to the ER because of low hemoglobin 5.9, low hematocrit 18.5 from the blood drawn yesterday, sent to ER by her physician. She complains of generalized weakness and abdominal pain and was seen she was diagnosed with liver cancer about a month ago. She started her first chemotherapy a week ago, denies fever, chills, neck pain, chest pain, dyspnea, vomiting, dysuria, diarrhea. She does not smoke nor drink Medical history: History of metastatic liver cancer on chemotherapy, hypothyroi dism, history of lung nodule, history of pericardial effusion, cholelithiasis Past surgical history: None ROS All systems reviewed and are negative except as per history of present illness. Medications Home Meds Reported Medications Morphine Sulfate* (Oramorph SR*) 30 Mg Tablet.sa, 30 MG PO Q12, TAB.SA 02/09/19 Hydrocodone/Acetaminophen ([place] 10-325 Tablet) 1 Each Tablet, 1 EACH PO Q6H, TAB 02/09/19 Discontinued Reported Medications Levothyroxine Sodium* (Levothyroxine Sodium*) 100 Mcg Tablet, 100 MCG PO BEFORE BREAKFAST, #30 TAB 01/02/19 Allergies Allergies: Coded Allergies: No Known Allergy (Unverified , 02/09/19) PMhx/Soc History of Surgery: Yes (fatting removed from both underarms 2012) Anesthesia Reaction: No Hx Neurological Disorder: No Hx Respiratory Disorders: No Hx Cardiac Disorders: No Hx Psychiatric Problems: No Hx Miscellaneous Medical Probl: Yes (liver cancer 12/30/2018) Hx Alcohol Use: No Hx Substance Use: No Hx Tobacco Use: No Physical Exam Vitals Vital Signs Date Temp Pulse Resp B/P (MAP) Pulse Ox O2 O2 Flow FiO2 Time Delivery Rate 02/09/19 97.6 80 20 87/43 (58) 94 Room Air 16:30 02/09/19 97.6 95 20 79/44 (56) 93 16:11 Physical Exam Const: No acute distress. Pale Head: Atraumatic. Eyes: Normal Conjunctiva. ENT: Normal External Ears, Nose and Mouth. Neck: Full range of motion. No meningismus. Resp: Clear to auscultation bilaterally. Cardio: Regular rate and rhythm. Abd: Soft, non distended, normal bowel sounds, diffuse upper abdominal pain, no rigidity/rebound/CVA tenderness Skin: No petechiae or rashes. Back: No midline or flank tenderness. Ext: No cyanosis, or edema. Neur: Awake and alert. No focal deficit Psych: Normal Mood and Affect. Result Diagram: 02/09/19 1650 02/09/19 1650 Results 24 hrs Laboratory Tests Test 02/09/19 16:50 02/09/19 17:15 02/09/19 17:17 White Blood Count 1.8 10^3/ul Red Blood Count 1.57 10^6/ul Hemoglobin 5.0 g/dl Hematocrit 16.2 % Mean Corpuscular Volume 103.2 fl Mean Corpuscular Hemoglobin 31.8 pg Mean Corpuscular 30.9 g/dl Hemoglobin Concent Red Cell Distribution Width 23.0 % Platelet Count 102 10^3/UL Mean Platelet Volume 9.9 fl Immature Granulocytes % 9.700 % Neutrophils % % Segmented Neutrophils 30 % % (Manual) Band Neutrophils % (Manual) 1 % Lymphocytes % % Lymphocytes % (Manual) 68 % Monocytes % % Monocytes % (Manual) 1 % Eosinophils % % Basophils % % Nucleated Red Blood Cells % 2 % Immature Granulocytes # 0.170 10^3/ul Neutrophils # 10^3/ul Neutrophils # (Manual) 0.5 10^3/ul Band Neutrophils # 0.0 10^3/ul Lymphocytes (Manual) 1.2 10^3/ul Lymphocytes # 10^3/ul Monocytes # 10^3/ul Monocytes # (Manual) 0.0 10^3/ul Eosinophils # 10^3/ul Basophils # 10^3/ul Nucleated Red Blood Cells # 10^3/ul Pathologist YES-PATH TO CONFIRM Review (Hematology) Platelet Estimate DECREASED Hypochromasia 1+ Anisocytosis 1+ Prothrombin Time 14.1 Sec Prothrombin Time Ratio 1.1 INR International 1.08 Normalized Ratio Activated 40.4 Sec Partial Thromboplast Time Sodium Level 128 mmol/L Potassium Level 4.3 mmol/L Chloride Level 97 mmol/L Carbon Dioxide Level 24 mmol/L Anion Gap 7 Blood Urea Nitrogen 17 mg/dl Creatinine 0.62 mg/dl Est Glomerular Filtrat > 60 mL/min Rate mL/min Glucose Level 98 mg/dl Calcium Level 8.5 mg/dl Total Bilirubin 0.9 mg/dl Direct Bilirubin 0.10 mg/dl Indirect Bilirubin 0.8 mg/dl Aspartate Amino 236 IU/L Transf (AST/SGOT) Alanine 61 IU/L Aminotransferase (ALT/SGPT) Alkaline Phosphatase 1047 IU/L Troponin I < 0.012 ng/ml Total Protein 6.7 g/dl Albumin 2.7 g/dl Globulin 4.00 g/dl Albumin/Globulin Ratio 0.67 Lipase 137 U/L POC Venous Lactate 1.6 mmol/L Urine Color WAQAR Urine Clarity CLOUDY Urine pH 7.0 Urine Specific Shirley 1.010 Urine Ketones NEGATIVE mg/dL Urine Nitrite NEGATIVE mg/dL Urine Bilirubin NEGATIVE mg/dL Urine Urobilinogen 2+ mg/dL Urine Leukocyte Esterase 1+ Mt/ul Urine Microscopic RBC 0 /HPF Urine Microscopic WBC 5 /HPF Urine Bacteria FEW /HPF Urine Hemoglobin 1+ mg/dL Urine Glucose NEGATIVE mg/dL Urine Total Protein NEGATIVE mg/dl Current Medications Medications Dose Sig/Maria Del Carmen Start Time Status Last (Trade) Ordered Route PRN Stop Time Admin Dose Reason Admin Sodium 1,000 ml @ Q1H ONCE 02/09/19 Cancel Chloride 1,000 mls/hr IV 17:00 02/09/19 17:59 Fentanyl 25 mcg ONCE ONCE 02/09/19 DC 02/09/19 (Sublimaze) IV 17:00 17:20 02/09/19 17:01 Sodium 1,710 ml BOLUS OVER 2 02/09/19 DC 02/09/19 Chloride HOURS STAT 17:04 17:20 (NS) IV* 02/09/19 17:06 Ceftriaxone 50 ml @ ONCE ONCE 02/09/19 DC 02/09/19 Sodium 100 mls/hr IVPB 18:00 18:32 02/09/19 18:29 Procedures/MDM EKG: Read by emergency physician Rate/Rhythm: Normal Sinus Rhythm 90 beats/min QRS, ST, T-waves: No ST elevation, no T inversion, low voltage precordial leads Impression: Abnormal EKG MEDICAL MAKING DECISION: The patient is a 53-year-old female, presenting with ac vianey symptomatic anemia, most likely due to chemotherapy She was treated with fentanyl 25 mcg IV for pain, ideal body weight IV fluid for clinical dehydration and hypotension, urine culture submitted, Rocephin IV for acute cystitis and 3 unit of blood, the first unit of blood is O- due to hypotension. I do not suspect any acute gastrointestinal bleeding The differential diagnoses considered include but are not limited to gastritis, peptic ulcer disease, esophageal varices, Mona-Hopkins tear, carcinoma, polyp, hemorrhoid, fissure, diverticulosis, angiodysplasia. Departure Diagnosis: Primary Impression: Symptomatic anemia Additional Impressions: Pancytopenia Hyponatremia Condition: Serious Comments Critical Care: Time: 35 minutes excluding all billable procedures. Treatments/Evaluations: Close monitoring and treatment of unstable vital signs, cardiorespiratory, and neurologic status, while maintaining tight balance of fluid, respiratory, and cardiac interventions. I discussed the findings with the patient. I discussed the patient with Dr. Saenz who admitted the patient to Dr Callejas at 6:10p via [employer], who was made aware of the lab, the treatment, the patient condition. The patient is admitted to ICU Disclaimer: Inadvertent spelling and grammatical errors are likely due to EHR/dictation software use and do not reflect on the overall quality of patient care. Also, please note that the electronic time recorded on this note does not necessarily reflect the actual time of the patient encounter. ABNER CHERY MD Feb 09, 2019 16:28
[2019-02-09] MEDS ORDERED: SOD CHLORIDE 0.9% 1,000 ML IV ONE (17:00)
[2019-02-09] MEDS ORDERED: FENTAnyl 50 MCG/ML VIAL IV ONE (17:00)
[2019-02-09] MEDS ORDERED: SODIUM CHLORIDE 0.9% 1L BAG IV* STA (17:04)
[2019-02-09] MEDS ORDERED: CEFTRIAXONE 1 GM/50 ML (PMX) 50 ML IVPB ONE (18:00)
[2019-02-09] MEDS ORDERED: ONDANSETRON 4 MG INJ IV PRN (19:00)
[2019-02-09] MEDS ORDERED: NACL 0.9% 3 ML SYG IV SCH (19:00)
[2019-02-09] MEDS ORDERED: ACETAMINOPHEN 325 MG TAB PO PRN (19:00)
[2019-02-09] MEDS: SOD CHLORIDE 0.9% 1,000 ML IV SCH (21:35)
[2019-02-09] MEDS ORDERED: MIDODRINE 5 MG TAB PO ONE (22:00)
[2019-02-09 23:38] VITALS: PULSE 84
[2019-02-09 23:45] VITALS: BP 96/68; PULSE 82; RESP 22
[2019-02-10] VITALS (24 sets, daily range): BP systolic 86–99; BP diastolic 54–68; PULSE 78–91; RESP 19–33
[2019-02-10] MEDS: morphine 2 MG INJ IV PRN ×3 (00:50→08:04)
[2019-02-10] MEDS: HYDROCODONE/APAP (5/325) TAB PO PRN ×2 (00:51→08:04)
[2019-02-10] MEDS ORDERED: HYDROmorphONE 1 MG/ML SYG IV ONE (01:39)
[2019-02-10] MEDS: PANTOPRAZOLE (EC) 40 MG TAB PO SCH ×2 (06:45→06:46)
[2019-02-10] MEDS: SOD CHLORIDE 0.9% 1,000 ML IV SCH ×5 (08:05→23:48)
--- NOTE | 2019-02-10 08:22 | HP ---
Date/Time of Note Date/Time of Note DATE: 02/10/19 TIME: 08:19 Assessment/Plan VTE Prophylaxis SCD applied (from Nsg): Yes Pharmacological prophylaxis: NA/contraindicated Pharm contraindication: thrombocytopenia, other (Severe anemia) Lines/Catheters IV Catheter Type (from Nrsg): Saline Lock Urinary Cath still in place: Yes Reason Cath still needed: terminal illness/intractable pain Assessment/Plan Assessment/Plan 1. Pancytopenia, with severe anemia: Chemo induced -Transfuse PRBCs -Neutropenic precaution -Heme/Onc consult 2. Metastatic liver cancer: Patient stated that she had 3 cycles so far -she is complaining of significant abdominal pain and she appears to be a weak -Pain management -Oncology consult 3. Hypovolemic shock -Continue blood transfusion and IV fluid -Albumin and midodrine -IV pressors as needed 4. Hypothyroidism -TSH is elevated. Labs from previous admission shows low free T4 -Start Synthroid -Consider endocrine consult Result Diagram: 02/10/19 0446 02/10/19 0446 Results 24hrs Laboratory Tests Test 02/09/19 16:50 02/09/19 17:15 02/09/19 17:17 02/09/19 19:30 White Blood 1.8 #L Count Red Blood Count 1.57 #L Hemoglobin 5.0 #*L Hematocrit 16.2 #L Mean Corpuscular 103.2 H Volume Mean Corpuscular 31.8 Hemoglobin Mean Corpuscular 30.9 L Hemoglobin Mckenzie nt Red Cell 23.0 #H Distribution Width Platelet Count 102 #L Mean Platelet 9.9 Volume Immature 9.700 H Granulocytes % Neutrophils % Segmented 30 L Neutrophils % (Manual) Band Neutrophils 1 % (Manual) Lymphocytes % Lymphocytes % 68 H (Manual) Monocytes % Monocytes % 1 (Manual) Eosinophils % Basophils % Nucleated Red 2 H Blood Cells % Immature 0.170 H Granulocytes # Neutrophils # Neutrophils # 0.5 L (Manual) Band Neutrophils 0.0 # Lymphocytes 1.2 (Manual) Lymphocytes # Monocytes # Monocytes # 0.0 L (Manual) Eosinophils # Basophils # Nucleated Red Blood Cells # Pathologist YES-PATH Review (Hematolo TO CONFIRM gy) Platelet DECREASED Estimate Hypochromasia 1+ Anisocytosis 1+ Prothrombin Time 14.1 Prothrombin Time 1.1 Ratio INR 1.08 International Normalized Ratio Activated 40.4 H Partial Thrombop last Time Sodium Level 128 L Potassium Level 4.3 Chloride Level 97 Carbon Dioxide 24 Level Anion Gap 7 Blood Urea 17 Nitrogen Creatinine 0.62 Est Glomerular > 60 Filtrat Rate mL/min Glucose Level 98 Calcium Level 8.5 Total Bilirubin 0.9 Direct Bilirubin 0.10 Indirect 0.8 Bilirubin Aspartate Amino 236 H Transf (AST/SGOT ) Alanine 61 Aminotransferase (ALT/SGPT) Alkaline 1047 H Phosphatase Troponin I < 0.012 Total Protein 6.7 Albumin 2.7 L Globulin 4.00 H Albumin/Globulin 0.67 Ratio Lipase 137 POC Venous 1.6 Lactate Urine Color WAQAR Urine Clarity CLOUDY A Urine pH 7.0 Urine Specific 1.010 [place] Urine Ketones NEGATIVE Urine Nitrite NEGATIVE Urine Bilirubin NEGATIVE Urine 2+ H Urobilinogen Urine Leukocyte 1+ H Esterase Urine 0 Microscopic RBC Urine 5 Microscopic WBC Urine Bacteria FEW A Urine Hemoglobin 1+ H Urine Glucose NEGATIVE Urine Total NEGATIVE Protein Lactic Acid 1.4 Level Test 02/09/19 21:35 02/10/19 04:46 02/10/19 04:58 Lactic Acid 1.2 Level White Blood 1.6 L Count Red Blood Count 2.32 #L Hemoglobin 7.2 #L Hematocrit 22.3 #L Mean Corpuscular 96.1 Volume Mean Corpuscular 31.0 Hemoglobin Mean Corpuscular 32.3 Hemoglobin Mckenzie nt Red Cell 21.2 H Distribution Width Platelet Count 72 #L Mean Platelet 10.6 H Volume Immature 0.000 L Granulocytes % Neutrophils % 17.9 L Lymphocytes % 77.7 H Monocytes % 3.8 Eosinophils % 0.0 Basophils % 0.6 Nucleated Red 0.0 Blood Cells % Immature 0.000 Granulocytes # Neutrophils # 0.3 L Lymphocytes # 1.2 Monocytes # 0.1 L Eosinophils # 0.0 Basophils # 0.0 Nucleated Red 0.0 Blood Cells # Sodium Level 131 L Potassium Level 3.9 Chloride Level 101 Carbon Dioxide 23 Level Anion Gap 7 Blood Urea 16 Nitrogen Creatinine 0.52 Est Glomerular > 60 Filtrat Rate mL/min Glucose Level 84 Hemoglobin A1c 5.0 Calcium Level 7.9 L Magnesium Level 1.9 Total Bilirubin 0.8 Direct Bilirubin 0.10 Indirect 0.7 Bilirubin Aspartate Amino 205 H Transf (AST/SGOT ) Alanine 52 Aminotransferase (ALT/SGPT) Alkaline 912 H Phosphatase Total Protein 6.1 Albumin 2.6 L Globulin 3.50 H Albumin/Globulin 0.74 Ratio Triglycerides 149 Level Cholesterol 270 H Level LDL Cholesterol, 206 Calculated HDL Cholesterol 34 L Cholesterol/HDL 7.9 Ratio Thyroid 16.100 H Stimulating Hormone (TSH) Lab Scanned REFERENCE LAB Report HPI/ROS Admit Date/Time Admit Date/Time Feb 09, 2019 at 18:15 Hx of Present Illness Patient is a 53-year-old female with a recently diagnosed metastatic liver cancer on chemo who was brought to the ER for anemia and abdominal pain. Patient was recently started on chemo. Outpatient lab draw showed anemia and as such she was instructed to come to the ER. When she presented to ER, hemoglobin was 5, WBC 1.8, platelets 102. She has also been hypotensive in the 80s. She complains of diffuse abdominal pain. Denied hematemesis, dark stool or BRBPR. PMH/Family/Social Past Medical History Medical History: other (See HPI) Medications Current Medications Sodium Chloride 1,000 ml @ 125 mls/hr Q8H IV Last administered on 02/10/19at 08:05; Admin Dose 125 MLS/HR; Start 02/09/19 at 18:55 IV Flush (NS 3 ml) 3 ml PER PROTOCOL IV ; Start 02/09/19 at 19:00 Ondansetron HCl (Zofran Inj) 4 mg Q6H PRN IV NAUSEA/VOMITING; Start 02/09/19 at 19:00 Acetaminophen (Tylenol Tab) 650 mg Q6H PRN PO .PAIN 1-3 OR TEMP; Start 02/09/19 at 19:00 Acetaminophen/ Hydrocodone Bitart ([place] (5/325)) 1 tab Q6H PRN PO .PAIN 4-6 Last administered on 02/10/19at 08:04; Admin Dose 1 TAB; Start 02/09/19 at 19:00 Morphine Sulfate (morphine) 2 mg Q4H PRN IV .PAIN 7-10 Last administered on 02/10/19at 08:04; Admin Dose 2 MG; Start 02/09/19 at 19:00 Pantoprazole (Protonix Tab) 40 mg DAILY@06 PO Last administered on 02/10/19at 06:46; Admin Dose 40 MG; Start 02/10/19 at 06:00 Fentanyl (Duragesic 50 Mcg/Hr Patch) 1 patch Q72H TRANSDERM ; Start 02/10/19 at 08:30; Status UNV Midodrine (Proamatine) 10 mg TID@09,13,17 PO ; Start 02/10/19 at 09:00; Status UNV Coded Allergies: No Known Allergy (Unverified , 02/09/19) Past Surgical History Past Surgical Hx: other (See HPI) Family History Significant Family History: no pertinent family hx Social History Alcohol Use: none Smoking Status: Never smoker Drug Use: none Exam/Review of Systems Vital Signs Vitals Vital Signs Date Temp Pulse Resp B/P (MAP) Pulse Ox O2 O2 Flow FiO2 Time Delivery Rate 02/10/19 98.4 87 31 88/59 (69) 94 Room Air 08:00 02/10/19 2.0 00:09 Intake and Output 02/09/19 02/09/19 02/10/19 1515:00 23:00 07:00 IntakeIntake Total 690 ml 900 ml OutputOutput Total 300 ml 1470 ml BalanceBalance 390 ml -570 ml Exam Constitutional: other (Patient uncomfortable due to abdominal pain) Head: normocephalic, atraumatic Eyes: PERRL Respiratory: other (Decreased breath sounds at the bases anteriorly) Cardiovascular: regular rate and rhythm, nl pulses Gastrointestinal: tender Extremities: normal pulses ELEONORA SCHROEDER MD Feb 10, 2019 08:22
[2019-02-10] MEDS: MIDODRINE 5 MG TAB PO SCH ×3 (09:00→13:49)
[2019-02-10] MEDS ORDERED: FENTAnyl PATCH 50 MCG/HR TRANSDERM SCH (10:00)
[2019-02-10] MEDS ORDERED: LORAZEPAM 2 MG INJ IV PRN (10:00)
[2019-02-10] MEDS: FENTAnyl 50 MCG/ML VIAL IV PRN ×3 (10:30→15:39)
--- NOTE | 2019-02-10 10:49 | PN ---
Date/Time of Note Date/Time of Note DATE: 02/10/19 TIME: 10:25 Assessment/Plan VTE Prophylaxis Risk score (from Ns)>0 risk: 8 SCD applied (from Ns): Yes Pharmacological prophylaxis: NA/contraindicated Pharm contraindication: thrombocytopenia, other Lines/Catheters [facility] Saline Lock Urinary Cath still in place: Yes Reason Cath still needed: terminal illness/intractable pain Assessment/Plan Hospital Course This is a 53-year-old unfortunate female who had presented to emergency room since by her physician because of severe anemia with a hemoglobin of 5.9. She also complained of generalized weakness and severe abdominal pain. She is currently managed in the intensive care units as follows: 1. 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 Severe cancer related pain -Appreciate pain management input and management of patient -Choice of pain control severely limited by presence of hypotension and borderline shock -Patient however is high risk for respiratory depression in view of severe abdominal distention and ascites limiting respiration -Remain in ICU on close monitoring, control pain as aggressively as possible while also being cognizance of side effects of medications -Schedule family meeting to notify them of concerns and discuss goals of care 4. Severe sepsis -Source likely gram-negative velasquez urinary tract infection chest x-ray also concerning for bibasilar atelectasis which could be significant for infection -Follow-up cultures -Continue empiric antibiotics -Patient also with foul-smelling diarrhea 5. Pancytopenia -Chemo related? -Neupogen? -Continue transfusion plan as per #1 -Await oncology recommendations 6. Dyslipidemia 7. Hypothyroidism -Patient has known hypothyroidism, resume home Synthroid Disposition: -Continue ICU monitoring and work-up -Discussion with family and oncologist as soon as possible -Appreciate all call the consultants -Overall prognosis very dire, close monitoring Care time greater than 40 minutes Result Diagram: 7/31/19 0446 02/10/19 0446 Results 24hrs Laboratory Tests Test 02/09/19 16:50 02/09/19 17:15 02/09/19 17:17 02/09/19 19:30 White Blood 1.8 #L Count Red Blood Count 1.57 #L Hemoglobin 5.0 #*L Hematocrit 16.2 #L Mean Corpuscular 103.2 H Volume Mean Corpuscular 31.8 Hemoglobin Mean Corpuscular 30.9 L Hemoglobin Mckenzie nt Red Cell 23.0 #H Distribution Width Platelet Count 102 #L Mean Platelet 9.9 Volume Immature 9.700 H Granulocytes % Neutrophils % Segmented 30 L Neutrophils % (Manual) Band Neutrophils 1 % (Manual) Lymphocytes % Lymphocytes % 68 H (Manual) Monocytes % Monocytes % 1 (Manual) Eosinophils % Basophils % Nucleated Red 2 H Blood Cells % Immature 0.170 H Granulocytes # Neutrophils # Neutrophils # 0.5 L (Manual) Band Neutrophils 0.0 # Lymphocytes 1.2 (Manual) Lymphocytes # Monocytes # Monocytes # 0.0 L (Manual) Eosinophils # Basophils # Nucleated Red Blood Cells # Pathologist YES-PATH Review (Hematolo TO CONFIRM gy) Platelet DECREASED Estimate Hypochromasia 1+ Anisocytosis 1+ Prothrombin Time 14.1 Prothrombin Time 1.1 Ratio INR 1.08 International Normalized Ratio Activated 40.4 H Partial Thrombop last Time Sodium Level 128 L Potassium Level 4.3 Chloride Level 97 Carbon Dioxide 24 Level Anion Gap 7 Blood Urea 17 Nitrogen Creatinine 0.62 Est Glomerular > 60 Filtrat Rate mL/min Glucose Level 98 Calcium Level 8.5 Total Bilirubin 0.9 Direct Bilirubin 0.10 Indirect 0.8 Bilirubin Aspartate Amino 236 H Transf (AST/SGOT ) Alanine 61 Aminotransferase (ALT/SGPT) Alkaline 1047 H Phosphatase Troponin I < 0.012 Total Protein 6.7 Albumin 2.7 L Globulin 4.00 H Albumin/Globulin 0.67 Ratio Lipase 137 POC Venous 1.6 Lactate Urine Color WAQAR Urine Clarity CLOUDY A Urine pH 7.0 Urine Specific 1.010 [place] Urine Ketones NEGATIVE Urine Nitrite NEGATIVE Urine Bilirubin NEGATIVE Urine 2+ H Urobilinogen Urine Leukocyte 1+ H Esterase Urine 0 Microscopic RBC Urine 5 Microscopic WBC Urine Bacteria FEW A Urine Hemoglobin 1+ H Urine Glucose NEGATIVE Urine Total NEGATIVE Protein Lactic Acid 1.4 Level Test 02/09/19 21:35 02/10/19 04:46 02/10/19 04:58 02/10/19 08:20 Lactic Acid 1.2 Level White Blood 1.6 L Count Red Blood Count 2.32 #L Hemoglobin 7.2 #L Hematocrit 22.3 #L Mean Corpuscular 96.1 Volume Mean Corpuscular 31.0 Hemoglobin Mean Corpuscular 32.3 Hemoglobin Mckenzie nt Red Cell 21.2 H Distribution Width Platelet Count 72 #L Mean Platelet 10.6 H Volume Immature 0.000 L Granulocytes % Neutrophils % 17.9 L Lymphocytes % 77.7 H Monocytes % 3.8 Eosinophils % 0.0 Basophils % 0.6 Nucleated Red 0.0 Blood Cells % Immature 0.000 Granulocytes # Neutrophils # 0.3 L Lymphocytes # 1.2 Monocytes # 0.1 L Eosinophils # 0.0 Basophils # 0.0 Nucleated Red 0.0 Blood Cells # Sodium Level 131 L Potassium Level 3.9 Chloride Level 101 Carbon Dioxide 23 Level Anion Gap 7 Blood Urea 16 Nitrogen Creatinine 0.52 Est Glomerular > 60 Filtrat Rate mL/min Glucose Level 84 Hemoglobin A1c 5.0 Calcium Level 7.9 L Magnesium Level 1.9 Total Bilirubin 0.8 Direct Bilirubin 0.10 Indirect 0.7 Bilirubin Aspartate Amino 205 H Transf (AST/SGOT ) Alanine 52 Aminotransferase (ALT/SGPT) Alkaline 912 H Phosphatase Total Protein 6.1 Albumin 2.6 L Globulin 3.50 H Albumin/Globulin 0.74 Ratio Triglycerides 149 Level Cholesterol 270 H Level LDL Cholesterol, 206 Calculated HDL Cholesterol 34 L Cholesterol/HDL 7.9 Ratio Thyroid 16.100 H Stimulating Hormone (TSH) Lab Scanned REFERENCE LAB Report Stool Occult NEGATIVE Blood Subjective 24 Hr Interval Summary Free Text/Dictation patient in a lot of pain so cannot really answer questions, but able to tell me that she has had 3 sessions of chemotherapy since her discharge in December. She cannot tell me though when her last chemotherapy session was. I reached out to her outpatient oncologist Exam/Review of Systems Exam Vitals Vital Signs Date Temp Pulse Resp B/P (MAP) Pulse Ox O2 O2 Flow FiO2 Time Delivery Rate 02/10/19 98.4 87 31 88/59 (69) 94 Room Air 08:00 02/10/19 2.0 00:09 Intake and Output 02/09/19 02/09/19 02/10/19 1515:00 23:00 07:00 IntakeIntake Total 690 ml 900 ml OutputOutput Total 300 ml 1470 ml BalanceBalance 390 ml -570 ml Exam Constitutional: alert, oriented, ill looking, diffuse anasarca Head: atraumatic, normocephalic, scleral jaundice and conjunctival pallor Neck: non-tender, supple Respiratory: clear to auscultation, diminished ++ Cardiovascular: regular rate and rhythm Gastrointestinal: Severely distended, ascitic, diffusely sore, distended bowel sounds Extremities: Severe lower extremity edema extending all the way to the abdomen, bilateral hands are swollen as well. Neuro: Able to move all extremities, no facial droop, no gross focal deficits Results Results 24hrs Laboratory Tests Test 02/09/19 16:50 02/09/19 17:15 02/09/19 17:17 02/09/19 19:30 White Blood 1.8 #L Count Red Blood Count 1.57 #L Hemoglobin 5.0 #*L Hematocrit 16.2 #L Mean Corpuscular 103.2 H Volume Mean Corpuscular 31.8 Hemoglobin Mean Corpuscular 30.9 L Hemoglobin Mckenzie nt Red Cell 23.0 #H Distribution Width Platelet Count 102 #L Mean Platelet 9.9 Volume Immature 9.700 H Granulocytes % Neutrophils % Segmented 30 L Neutrophils % (Manual) Band Neutrophils 1 % (Manual) Lymphocytes % Lymphocytes % 68 H (Manual) Monocytes % Monocytes % 1 (Manual) Eosinophils % Basophils % Nucleated Red 2 H Blood Cells % Immature 0.170 H Granulocytes # Neutrophils # Neutrophils # 0.5 L (Manual) Band Neutrophils 0.0 # Lymphocytes 1.2 (Manual) Lymphocytes # Monocytes # Monocytes # 0.0 L (Manual) Eosinophils # Basophils # Nucleated Red Blood Cells # Pathologist YES-PATH Review (Hematolo TO CONFIRM gy) Platelet DECREASED Estimate Hypochromasia 1+ Anisocytosis 1+ Prothrombin Time 14.1 Prothrombin Time 1.1 Ratio INR 1.08 International Normalized Ratio Activated 40.4 H Partial Thrombop last Time Sodium Level 128 L Potassium Level 4.3 Chloride Level 97 Carbon Dioxide 24 Level Anion Gap 7 Blood Urea 17 Nitrogen Creatinine 0.62 Est Glomerular > 60 Filtrat Rate mL/min Glucose Level 98 Calcium Level 8.5 Total Bilirubin 0.9 Direct Bilirubin 0.10 Indirect 0.8 Bilirubin Aspartate Amino 236 H Transf (AST/SGOT ) Alanine 61 Aminotransferase (ALT/SGPT) Alkaline 1047 H Phosphatase Troponin I < 0.012 Total Protein 6.7 Albumin 2.7 L Globulin 4.00 H Albumin/Globulin 0.67 Ratio Lipase 137 POC Venous 1.6 Lactate Urine Color WAQAR Urine Clarity CLOUDY A Urine pH 7.0 Urine Specific 1.010 [place] Urine Ketones NEGATIVE Urine Nitrite NEGATIVE Urine Bilirubin NEGATIVE Urine 2+ H Urobilinogen Urine Leukocyte 1+ H Esterase Urine 0 Microscopic RBC Urine 5 Microscopic WBC Urine Bacteria FEW A Urine Hemoglobin 1+ H Urine Glucose NEGATIVE Urine Total NEGATIVE Protein Lactic Acid 1.4 Level Test 02/09/19 21:35 02/10/19 04:46 02/10/19 04:58 02/10/19 08:20 Lactic Acid 1.2 Level White Blood 1.6 L Count Red Blood Count 2.32 #L Hemoglobin 7.2 #L Hematocrit 22.3 #L Mean Corpuscular 96.1 Volume Mean Corpuscular 31.0 Hemoglobin Mean Corpuscular 32.3 Hemoglobin Mckenzie nt Red Cell 21.2 H Distribution Width Platelet Count 72 #L Mean Platelet 10.6 H Volume Immature 0.000 L Granulocytes % Neutrophils % 17.9 L Lymphocytes % 77.7 H Monocytes % 3.8 Eosinophils % 0.0 Basophils % 0.6 Nucleated Red 0.0 Blood Cells % Immature 0.000 Granulocytes # Neutrophils # 0.3 L Lymphocytes # 1.2 Monocytes # 0.1 L Eosinophils # 0.0 Basophils # 0.0 Nucleated Red 0.0 Blood Cells # Sodium Level 131 L Potassium Level 3.9 Chloride Level 101 Carbon Dioxide 23 Level Anion Gap 7 Blood Urea 16 Nitrogen Creatinine 0.52 Est Glomerular > 60 Filtrat Rate mL/min Glucose Level 84 Hemoglobin A1c 5.0 Calcium Level 7.9 L Magnesium Level 1.9 Total Bilirubin 0.8 Direct Bilirubin 0.10 Indirect 0.7 Bilirubin Aspartate Amino 205 H Transf (AST/SGOT ) Alanine 52 Aminotransferase (ALT/SGPT) Alkaline 912 H Phosphatase Total Protein 6.1 Albumin 2.6 L Globulin 3.50 H Albumin/Globulin 0.74 Ratio Triglycerides 149 Level Cholesterol 270 H Level LDL Cholesterol, 206 Calculated HDL Cholesterol 34 L Cholesterol/HDL 7.9 Ratio Thyroid 16.100 H Stimulating Hormone (TSH) Lab Scanned REFERENCE LAB Report Stool Occult NEGATIVE Blood Imaging Imaging I reviewed CT of the chest from December 2018: -Small pulmonary nodules that are indeterminate but could represent metastasis in the clinical setting as well as bilateral lung atelectasis in the bases -Enlarged liver with multiple masses concerning for metastatic disease unchanged -Moderate pericardial effusion I also reviewed CT of the abdomen and pelvis also from December 2018 -Diffusely enlarged liver containing multiple masses and homogeneity in the gallbladder fossa concerning for primary liver or gallbladder neoplasm -Third spacing of fluid with generalized soft tissue anasarca, small bilateral pleural and pericardial effusion I also reviewed pathology results from January 04, 2019 -Final pathology consistent with possible metastatic neuroendocrine carcinoma of the gallbladder Medications Medication Current Medications Sodium Chloride 1,000 ml @ 125 mls/hr Q8H IV Last administered on 02/10/19at 08:05; Admin Dose 125 MLS/HR; Start 02/09/19 at 18:55 IV Flush (NS 3 ml) 3 ml PER PROTOCOL IV ; Start 02/09/19 at 19:00 Ondansetron HCl (Zofran Inj) 4 mg Q6H PRN IV NAUSEA/VOMITING; Start 02/09/19 at 19:00 Acetaminophen (Tylenol Tab) 650 mg Q6H PRN PO .PAIN 1-3 OR TEMP; Start 02/09/19 at 19:00 Pantoprazole (Protonix Tab) 40 mg DAILY@06 PO Last administered on 02/10/19at 06:46; Admin Dose 40 MG; Start 02/10/19 at 06:00 Midodrine (Proamatine) 10 mg TID@09,13,17 PO ; Start 02/10/19 at 09:00 Fentanyl 100 ml @ 1.5 mls/hr Q24H IV ; Start 02/10/19 at 11:00 Fentanyl (Sublimaze) 25 mcg Q2 PRN IV PAIN; Start 02/10/19 at 10:00 Lorazepam (Ativan) 0.25 mg Q6H PRN IV PAIN LEVEL 1-3; Start 02/10/19 at 10:00 AYDEN LEE Feb 10, 2019 10:36
[2019-02-10] MEDS ORDERED: LORAZEPAM 2 MG INJ IV ONE ×2 (10:56→11:30)
[2019-02-10] MEDS ORDERED: FENTAnyl (DRIP) 1000 mcg/100mL 100 ML IV SCH (11:00)
--- NOTE | 2019-02-10 12:14 | CONS ---
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 Other opioids will produce more profound hypotension. It is contraindicated to give her any nonsteroidal anti-inflammatory medications with low platelet count. Other interventional options for pain management can be considered later in patient's hospital course if necessary. Consultation Date/Type/Reason Admit Date/Time Feb 09, 2019 at 18:15 Date/Time of Note DATE: 02/10/19 TIME: 12:12 Hx of Present Illness This is a brief pain management note for this 53-year-old female who presents with a history of gallbladder disease with mets to her lungs presenting with severe new onset of abdominal pain. Patient is now been admitted to the intensive care unit with severe pancytopenia, hypotension, diffuse abdominal pain, probable sepsis syndrome, obesity. Patient states that all of her pain began within the last 1 week prior to this presentation. We have an incomplete database until patient's primary care oncologist and evaluates patient. Past Medical History Medical History: other (See HPI) Home Meds Reported Medications Morphine Sulfate* (Oramorph SR*) 30 Mg Tablet.sa, 30 MG PO Q12, TAB.SA 02/09/19 Hydrocodone/Acetaminophen ([place] 10-325 Tablet) 1 Each Tablet, 1 EACH PO Q6H, TAB 02/09/19 Discontinued Reported Medications Levothyroxine Sodium* (Levothyroxine Sodium*) 100 Mcg Tablet, 100 MCG PO BEFORE BREAKFAST, #30 TAB 01/02/19 Medications Current Medications Sodium Chloride 1,000 ml @ 125 mls/hr Q8H IV Last administered on 02/10/19at 08:05; Admin Dose 125 MLS/HR; Start 02/09/19 at 18:55 IV Flush (NS 3 ml) 3 ml PER PROTOCOL IV ; Start 02/09/19 at 19:00 Ondansetron HCl (Zofran Inj) 4 mg Q6H PRN IV NAUSEA/VOMITING; Start 02/09/19 at 19:00 Acetaminophen (Tylenol Tab) 650 mg Q6H PRN PO .PAIN 1-3 OR TEMP; Start 02/09/19 at 19:00 Pantoprazole (Protonix Tab) 40 mg DAILY@06 PO Last administered on 02/10/19at 06:46; Admin Dose 40 MG; Start 02/10/19 at 06:00 Midodrine (Proamatine) 10 mg TID@09,13,17 PO ; Start 02/10/19 at 09:00 Fentanyl (Sublimaze) 25 mcg Q2 PRN IV PAIN Last administered on 02/10/19at 10:30; Admin Dose 25 MCG; Start 02/10/19 at 10:00 Lorazepam (Ativan) 0.25 mg Q6H PRN IV PAIN LEVEL 1-3; Start 02/10/19 at 10:00 Piperacillin Sod/ Tazobactam Sod 100 ml @ 200 mls/hr Q8 IVPB ; Start 02/10/19 at 14:00 Norepinephrine 16 mg/Dextrose 250 ml @ 0.94 mls/hr TITRATE IV ; Start 02/10/19 at 11:30 Lorazepam (Ativan) 0.5 mg Q6H PRN IV anxiety; Start 02/10/19 at 11:00 Allergies: Coded Allergies: No Known Allergy (Unverified , 02/09/19) Past Surgical History Past Surgical Hx: other (See HPI) Social History Alcohol Use: none Smoking Status: Never smoker Drug Use: none Exam/Review of Systems Exam Vitals Vital Signs Date Temp Pulse Resp B/P (MAP) Pulse Ox O2 O2 Flow FiO2 Time Delivery Rate 02/10/19 98.4 87 31 88/59 (69) 94 Room Air 08:00 02/10/19 2.0 00:09 Intake and Output 02/09/19 02/09/19 02/10/19 1515:00 23:00 07:00 IntakeIntake Total 690 ml 900 ml OutputOutput Total 300 ml 1470 ml BalanceBalance 390 ml -570 ml Constitutional: distress Psych: anxiety Head: normocephalic, atraumatic; No lacerations, No hematomas, No other Eyes: nl conjunctiva, EOMI, nl lids, nl sclera, PERRL Respiratory: clear to auscultation, normal air movement; No congested cough, No crackles/rales, No diminished breath sounds, No intercostal retraction, No labored breathing, No respirations, No tactile fremitus, No wheezing, No other Gastrointestinal: other (Grossly distended all 4 quadrants, guarding all 4 quadrants, no bowel sounds appreciated, cannot palpate organs rebound all 4 quadrants) Neurological: FENCE [employer] CUTTER II-XII intact, nl mental status, nl speech, nl strength; No confused, No DTR's symmetric, No focal weakness, No lethargic, No numbness, No reflexes, No unresponsive, No other Results Result Diagram: 02/10/196 02/10/19 0446 Results 24hrs Laboratory Tests Test 02/09/19 16:50 02/09/19 17:15 02/09/19 17:17 02/09/19 19:30 White Blood 1.8 #L Count Red Blood Count 1.57 #L Hemoglobin 5.0 #*L Hematocrit 16.2 #L Mean Corpuscular 103.2 H Volume Mean Corpuscular 31.8 Hemoglobin Mean Corpuscular 30.9 L Hemoglobin Mckenzie nt Red Cell 23.0 #H Distribution Width Platelet Count 102 #L Mean Platelet 9.9 Volume Immature 9.700 H Granulocytes % Neutrophils % Segmented 30 L Neutrophils % (Manual) Band Neutrophils 1 % (Manual) Lymphocytes % Lymphocytes % 68 H (Manual) Monocytes % Monocytes % 1 (Manual) Eosinophils % Basophils % Nucleated Red 2 H Blood Cells % Immature 0.170 H Granulocytes # Neutrophils # Neutrophils # 0.5 L (Manual) Band Neutrophils 0.0 # Lymphocytes 1.2 (Manual) Lymphocytes # Monocytes # Monocytes # 0.0 L (Manual) Eosinophils # Basophils # Nucleated Red Blood Cells # Pathologist YES-PATH Review (Hematolo TO CONFIRM gy) Platelet DECREASED Estimate Hypochromasia 1+ Anisocytosis 1+ Prothrombin Time 14.1 Prothrombin Time 1.1 Ratio INR 1.08 International Normalized Ratio Activated 40.4 H Partial Thrombop last Time Sodium Level 128 L Potassium Level 4.3 Chloride Level 97 Carbon Dioxide 24 Level Anion Gap 7 Blood Urea 17 Nitrogen Creatinine 0.62 Est Glomerular > 60 Filtrat Rate mL/min Glucose Level 98 Calcium Level 8.5 Total Bilirubin 0.9 Direct Bilirubin 0.10 Indirect 0.8 Bilirubin Aspartate Amino 236 H Transf (AST/SGOT ) Alanine 61 Aminotransferase (ALT/SGPT) Alkaline 1047 H Phosphatase Troponin I < 0.012 Total Protein 6.7 Albumin 2.7 L Globulin 4.00 H Albumin/Globulin 0.67 Ratio Lipase 137 POC Venous 1.6 Lactate Urine Color WAQAR Urine Clarity CLOUDY A Urine pH 7.0 Urine Specific 1.010 [place] Urine Ketones NEGATIVE Urine Nitrite NEGATIVE Urine Bilirubin NEGATIVE Urine 2+ H Urobilinogen Urine Leukocyte 1+ H Esterase Urine 0 Microscopic RBC Urine 5 Microscopic WBC Urine Bacteria FEW A Urine Hemoglobin 1+ H Urine Glucose NEGATIVE Urine Total NEGATIVE Protein Lactic Acid 1.4 Level Test 02/09/19 21:35 02/10/19 04:46 02/10/19 04:58 02/10/19 08:20 Lactic Acid 1.2 Level White Blood 1.6 L Count Red Blood Count 2.32 #L Hemoglobin 7.2 #L Hematocrit 22.3 #L Mean Corpuscular 96.1 Volume Mean Corpuscular 31.0 Hemoglobin Mean Corpuscular 32.3 Hemoglobin Mckenzie nt Red Cell 21.2 H Distribution Width Platelet Count 72 #L Mean Platelet 10.6 H Volume Immature 0.000 L Granulocytes % Neutrophils % 17.9 L Lymphocytes % 77.7 H Monocytes % 3.8 Eosinophils % 0.0 Basophils % 0.6 Nucleated Red 0.0 Blood Cells % Immature 0.000 Granulocytes # Neutrophils # 0.3 L Lymphocytes # 1.2 Monocytes # 0.1 L Eosinophils # 0.0 Basophils # 0.0 Nucleated Red 0.0 Blood Cells # Sodium Level 131 L Potassium Level 3.9 Chloride Level 101 Carbon Dioxide 23 Level Anion Gap 7 Blood Urea 16 Nitrogen Creatinine 0.52 Est Glomerular > 60 Filtrat Rate mL/min Glucose Level 84 Hemoglobin A1c 5.0 Calcium Level 7.9 L Magnesium Level 1.9 Total Bilirubin 0.8 Direct Bilirubin 0.10 Indirect 0.7 Bilirubin Aspartate Amino 205 H Transf (AST/SGOT ) Alanine 52 Aminotransferase (ALT/SGPT) Alkaline 912 H Phosphatase Total Protein 6.1 Albumin 2.6 L Globulin 3.50 H Albumin/Globulin 0.74 Ratio Triglycerides 149 Level Cholesterol 270 H Level LDL Cholesterol, 206 Calculated HDL Cholesterol 34 L Cholesterol/HDL 7.9 Ratio Thyroid 16.100 H Stimulating Hormone (TSH) Lab Scanned REFERENCE LAB Report Stool Occult NEGATIVE Blood Medications Medication Current Medications Sodium Chloride 1,000 ml @ 125 mls/hr Q8H IV Last administered on 02/10/19at 08:05; Admin Dose 125 MLS/HR; Start 02/09/19 at 18:55 IV Flush (NS 3 ml) 3 ml PER PROTOCOL IV ; Start 02/09/19 at 19:00 Ondansetron HCl (Zofran Inj) 4 mg Q6H PRN IV NAUSEA/VOMITING; Start 02/09/19 at 19:00 Acetaminophen (Tylenol Tab) 650 mg Q6H PRN PO .PAIN 1-3 OR TEMP; Start 02/09/19 at 19:00 Pantoprazole (Protonix Tab) 40 mg DAILY@06 PO Last administered on 02/10/19at 06:46; Admin Dose 40 MG; Start 02/10/19 at 06:00 Midodrine (Proamatine) 10 mg TID@09,13,17 PO ; Start 02/10/19 at 09:00 Fentanyl (Sublimaze) 25 mcg Q2 PRN IV PAIN Last administered on 02/10/19at 10:30; Admin Dose 25 MCG; Start 02/10/19 at 10:00 Lorazepam (Ativan) 0.25 mg Q6H PRN IV PAIN LEVEL 1-3; Start 02/10/19 at 10:00 Piperacillin Sod/ Tazobactam Sod 100 ml @ 200 mls/hr Q8 IVPB ; Start 02/10/19 at 14:00 Norepinephrine 16 mg/Dextrose 250 ml @ 0.94 mls/hr TITRATE IV ; Start 02/10/19 at 11:30 Lorazepam (Ativan) 0.5 mg Q6H PRN IV anxiety; Start 02/10/19 at 11:00 WALKER ALAMO Feb 10, 2019 12:14
--- NOTE | 2019-02-10 14:13 | CONS ---
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 as explained to the family, any more chemotherapy would likely hurt more than help the patient. family understands that the patient has terminal disease and will likely pass away soon -I agree with comfort measures at this time #Sepsis -2/2 GNR in urine -continue broad spectrum antibiotics #Pancytopenia -2/2 liver disease as well as chemo effect -s/p blood transfusion Thank you for the opportunity to participate in this patients care A total of 40 minutes of face to face time was spent speaking with the patient, of which greater than 50% was spent in counseling and coordination of care and the detailed question and answer session. Consultation Date/Type/Reason Admit Date/Time Feb 09, 2019 at 18:15 Date of Consultation: Feb 10, 2019 Type of Consult oncology Reason for Consultation high grade neuroendocrine tumor Requesting Provider: AYDEN LEE Date/Time of Note DATE: 02/10/19 TIME: 14:01 Hx of Present Illness 53 yo F with PMH hypothyroidism who has since been diagnosed with metastatic high grade neuroendocrine tumor. 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 This was determined to be a high grade lesion. Primary site of lesion could not be determined. 01/2019 pt presented to [facility] where she was admitted to the ICU for sepsis from a port a cath infection. She completed a course of antibiotics 02/02/19 pt started chemotherapy with carboplatin and etoposide 02/09/19 pt is admitted with severe sepsis from GNR in urine as well as severe anemia. pt has since received blood transfusion but remains critical in the ICU on broad spectrum antibiotics Subjective hx not possible: pt critical Constitutional: chills, diaphoresis, disoriented, febrile, poor po Eyes: no complaints ENT: no complaints Respiratory: cough, pleuritic pain, shortness of breath Cardiovascular: chest pain, edema, lightheadedness Gastrointestinal: pain, decreased appetite, nausea Musculoskeletal: back pain, bone/joint pain Skin: no complaints Neurologic: confusion, dizziness, focal-weakness, headache Endocrine: no complaints Lymphatic: no complaints Psychological: anxiety, depression Past Medical History Medical History: other (See HPI) Home Meds Reported Medications Morphine Sulfate* (Oramorph SR*) 30 Mg Tablet.sa, 30 MG PO Q12, TAB.SA 02/09/19 Hydrocodone/Acetaminophen ([place] 10-325 Tablet) 1 Each Tablet, 1 EACH PO Q6H, TAB 02/09/19 Discontinued Reported Medications Levothyroxine Sodium* (Levothyroxine Sodium*) 100 Mcg Tablet, 100 MCG PO BEFORE BREAKFAST, #30 TAB 01/02/19 Medications Current Medications Sodium Chloride 1,000 ml @ 125 mls/hr Q8H IV Last administered on 02/10/19at 08:05; Admin Dose 125 MLS/HR; Start 02/09/19 at 18:55 IV Flush (NS 3 ml) 3 ml PER PROTOCOL IV ; Start 02/09/19 at 19:00 Ondansetron HCl (Zofran Inj) 4 mg Q6H PRN IV NAUSEA/VOMITING; Start 02/09/19 at 19:00 Acetaminophen (Tylenol Tab) 650 mg Q6H PRN PO .PAIN 1-3 OR TEMP; Start 02/09/19 at 19:00 Pantoprazole (Protonix Tab) 40 mg DAILY@06 PO Last administered on 02/10/19at 06:46; Admin Dose 40 MG; Start 02/10/19 at 06:00 Midodrine (Proamatine) 10 mg TID@09,13,17 PO ; Start 02/10/19 at 09:00 Fentanyl (Sublimaze) 25 mcg Q2 PRN IV PAIN Last administered on 02/10/19at 13:00; Admin Dose 25 MCG; Start 02/10/19 at 10:00 Lorazepam (Ativan) 0.25 mg Q6H PRN IV PAIN LEVEL 1-3; Start 02/10/19 at 10:00 Piperacillin Sod/ Tazobactam Sod 100 ml @ 200 mls/hr Q8 IVPB ; Start 02/10/19 at 14:00 Norepinephrine 16 mg/Dextrose 250 ml @ 0.94 mls/hr TITRATE IV ; Start 02/10/19 at 11:30 Lorazepam (Ativan) 0.5 mg Q6H PRN IV anxiety; Start 02/10/19 at 11:00 Allergies: Coded Allergies: No Known Allergy (Unverified , 02/09/19) Past Surgical History Past Surgical Hx: other (See HPI) Family History Significant Family History: no pertinent family hx Social History Alcohol Use: none Smoking Status: Never smoker Drug Use: none Exam/Review of Systems Exam Vitals Vital Signs Date Temp Pulse Resp B/P (MAP) Pulse Ox O2 O2 Flow FiO2 Time Delivery Rate 02/10/19 82 25 93/58 (70) 97 13:00 02/10/19 98.4 Nasal 3.0 12:00 Cannula Intake and Output 02/09/19 02/09/19 02/10/19 1515:00 23:00 07:00 IntakeIntake Total 690 ml 900 ml OutputOutput Total 300 ml 1470 ml BalanceBalance 390 ml -570 ml Constitutional: distress, frail Psych: anxiety, confusion, depression Head: normocephalic Eyes: nl conjunctiva, icteric ENMT: nl external ears & nose Neck: supple Respiratory: diminished breath sounds Cardiovascular: other (tachycardia) Gastrointestinal: soft, ascites Musculoskeletal: nl extremities to inspection, swelling Results Result Diagram: 02/10/196 02/10/19 0446 Results 24hrs Laboratory Tests Test 02/09/19 16:50 02/09/19 17:15 02/09/19 17:17 02/09/19 19:30 White Blood 1.8 #L Count Red Blood Count 1.57 #L Hemoglobin 5.0 #*L Hematocrit 16.2 #L Mean Corpuscular 103.2 H Volume Mean Corpuscular 31.8 Hemoglobin Mean Corpuscular 30.9 L Hemoglobin Mckenzie nt Red Cell 23.0 #H Distribution Width Platelet Count 102 #L Mean Platelet 9.9 Volume Immature 9.700 H Granulocytes % Neutrophils % Segmented 30 L Neutrophils % (Manual) Band Neutrophils 1 % (Manual) Lymphocytes % Lymphocytes % 68 H (Manual) Monocytes % Monocytes % 1 (Manual) Eosinophils % Basophils % Nucleated Red 2 H Blood Cells % Immature 0.170 H Granulocytes # Neutrophils # Neutrophils # 0.5 L (Manual) Band Neutrophils 0.0 # Lymphocytes 1.2 (Manual) Lymphocytes # Monocytes # Monocytes # 0.0 L (Manual) Eosinophils # Basophils # Nucleated Red Blood Cells # Pathologist YES-PATH Review (Hematolo TO CONFIRM gy) Platelet DECREASED Estimate Hypochromasia 1+ Anisocytosis 1+ Prothrombin Time 14.1 Prothrombin Time 1.1 Ratio INR 1.08 International Normalized Ratio Activated 40.4 H Partial Thrombop last Time Sodium Level 128 L Potassium Level 4.3 Chloride Level 97 Carbon Dioxide 24 Level Anion Gap 7 Blood Urea 17 Nitrogen Creatinine 0.62 Est Glomerular > 60 Filtrat Rate mL/min Glucose Level 98 Calcium Level 8.5 Total Bilirubin 0.9 Direct Bilirubin 0.10 Indirect 0.8 Bilirubin Aspartate Amino 236 H Transf (AST/SGOT ) Alanine 61 Aminotransferase (ALT/SGPT) Alkaline 1047 H Phosphatase Troponin I < 0.012 Total Protein 6.7 Albumin 2.7 L Globulin 4.00 H Albumin/Globulin 0.67 Ratio Lipase 137 POC Venous 1.6 Lactate Urine Color WAQAR Urine Clarity CLOUDY A Urine pH 7.0 Urine Specific 1.010 [place] Urine Ketones NEGATIVE Urine Nitrite NEGATIVE Urine Bilirubin NEGATIVE Urine 2+ H Urobilinogen Urine Leukocyte 1+ H Esterase Urine 0 Microscopic RBC Urine 5 Microscopic WBC Urine Bacteria FEW A Urine Hemoglobin 1+ H Urine Glucose NEGATIVE Urine Total NEGATIVE Protein Lactic Acid 1.4 Level Test 02/09/19 21:35 02/10/19 04:46 02/10/19 04:58 02/10/19 08:20 Lactic Acid 1.2 Level White Blood 1.6 L Count Red Blood Count 2.32 #L Hemoglobin 7.2 #L Hematocrit 22.3 #L Mean Corpuscular 96.1 Volume Mean Corpuscular 31.0 Hemoglobin Mean Corpuscular 32.3 Hemoglobin Mckenzie nt Red Cell 21.2 H Distribution Width Platelet Count 72 #L Mean Platelet 10.6 H Volume Immature 0.000 L Granulocytes % Neutrophils % 17.9 L Lymphocytes % 77.7 H Monocytes % 3.8 Eosinophils % 0.0 Basophils % 0.6 Nucleated Red 0.0 Blood Cells % Immature 0.000 Granulocytes # Neutrophils # 0.3 L Lymphocytes # 1.2 Monocytes # 0.1 L Eosinophils # 0.0 Basophils # 0.0 Nucleated Red 0.0 Blood Cells # Sodium Level 131 L Potassium Level 3.9 Chloride Level 101 Carbon Dioxide 23 Level Anion Gap 7 Blood Urea 16 Nitrogen Creatinine 0.52 Est Glomerular > 60 Filtrat Rate mL/min Glucose Level 84 Hemoglobin A1c 5.0 Calcium Level 7.9 L Magnesium Level 1.9 Total Bilirubin 0.8 Direct Bilirubin 0.10 Indirect 0.7 Bilirubin Aspartate Amino 205 H Transf (AST/SGOT ) Alanine 52 Aminotransferase (ALT/SGPT) Alkaline 912 H Phosphatase Total Protein 6.1 Albumin 2.6 L Globulin 3.50 H Albumin/Globulin 0.74 Ratio Triglycerides 149 Level Cholesterol 270 H Level LDL Cholesterol, 206 Calculated HDL Cholesterol 34 L Cholesterol/HDL 7.9 Ratio Thyroid 16.100 H Stimulating Hormone (TSH) Lab Scanned REFERENCE LAB Report Stool Occult NEGATIVE Blood Medications Medication Current Medications Sodium Chloride 1,000 ml @ 125 mls/hr Q8H IV Last administered on 02/10/19at 08:05; Admin Dose 125 MLS/HR; Start 02/09/19 at 18:55 IV Flush (NS 3 ml) 3 ml PER PROTOCOL IV ; Start 02/09/19 at 19:00 Ondansetron HCl (Zofran Inj) 4 mg Q6H PRN IV NAUSEA/VOMITING; Start 02/09/19 at 19:00 Acetaminophen (Tylenol Tab) 650 mg Q6H PRN PO .PAIN 1-3 OR TEMP; Start 02/09/19 at 19:00 Pantoprazole (Protonix Tab) 40 mg DAILY@06 PO Last administered on 02/10/19at 06:46; Admin Dose 40 MG; Start 02/10/19 at 06:00 Midodrine (Proamatine) 10 mg TID@09,13,17 PO ; Start 02/10/19 at 09:00 Fentanyl (Sublimaze) 25 mcg Q2 PRN IV PAIN Last administered on 02/10/19at 13:00; Admin Dose 25 MCG; Start 02/10/19 at 10:00 Lorazepam (Ativan) 0.25 mg Q6H PRN IV PAIN LEVEL 1-3; Start 02/10/19 at 10:00 Piperacillin Sod/ Tazobactam Sod 100 ml @ 200 mls/hr Q8 IVPB ; Start 02/10/19 at 14:00 Norepinephrine 16 mg/Dextrose 250 ml @ 0.94 mls/hr TITRATE IV ; Start 02/10/19 at 11:30 Lorazepam (Ativan) 0.5 mg Q6H PRN IV anxiety; Start 02/10/19 at 11:00 AALIYAH BUTLER M.D. Feb 10, 2019 14:12
[2019-02-10] MEDS: LORAZEPAM 2 MG INJ IV PRN ×2 (14:39→22:45)
[2019-02-10] MEDS: PIPER-TAZO 3.375 GM IV (PMX) 100 ML IVPB SCH ×2 (14:39→21:22)
[2019-02-10] MEDS ORDERED: HYDROmorphONE 2 MG/ML SYG IV STA (16:18)
[2019-02-10] MEDS: HYDROmorphONE 0.2 MG/ML PCA IV SCH (19:58)
[2019-02-11] VITALS (26 sets, daily range): BP systolic 83–104; BP diastolic 44–78; PULSE 79–95; RESP 19–34
--- NOTE | 2019-02-11 00:36 | CONS ---
DATE OF ADMISSION: 02/09/2019 DATE OF CONSULTATION: 02/10/2019 TYPE OF CONSULTATION: Infectious Disease. REASON FOR CONSULTATION: Antibiotic management. HISTORY OF PRESENT ILLNESS: Xiomy Weaver is a 53-year-old unfortunate female who comes in with a hemoglobin and hematocrit of 5.9 and 18.5, generalized pain and underlying liver cancer. The patient complained of generalized weakness, abdominal pain, was seen with a diagnosis of liver cance r about a month ago. She started chemotherapy about 1 week ago. She denies fever or chills. Her me dical history includes history of metastatic liver cancer, on chemotherapy. She also has a history o f hypothyroidism, history of lung nodule, pericardial effusion and cholelithiasis. PAST SURGICAL HISTORY: She had fat removed from both underarms in 2012, liver cancer diagnosed 12/30. On admission, her white count was 1.8 with 30 neutrophils and 1 band, so she is not absolutely neutro penic, but very close to that, H and H of 5 and 16.2, platelet count 102,000, so she is pancytopenic. BUN and creatinine 17/0.62, glucose of 98. PAST MEDICAL HISTORY: As outlined by Dr. Melissa Hutchins. Patient has high grade neuroendocrine tumor involving the liver and lungs. She had 1 cycle of carboplatin and etoposide. She has neutropenic se psis. She is not a candidate for any more chemotherapy and the family is considering comfort measure s at this time. She has gram-negative rods in her urine. History is positive for hypothyroidism and she has a diagnosis of metastatic high grade neuroendocrine tumor, poorly differentiated carcinoma w ith neuroendocrine differentiation compatible with poorly differentiated large cell neuroendocrine ca rcinoma. This was determined to be a high-grade lesion, primary site of lesion cannot be determined. She was admitted in January to [facility] where she was admitted to the ICU for sepsis from a Port-A-Cath infection. She completed a course of antibiotics. On the she received her carbopl atin and etoposide. She is admitted with severe sepsis from gram-negative rods in the urine as well as severe anemia. PHYSICAL EXAMINATION: GENERAL: She is a pale female, in no acute distress. VITAL SIGNS: Stable. She is afebrile. SKIN: Without generalized rash. HEENT: Within normal limits. NECK: Supple. LYMPH NODES: None palpable. CHEST: Decreased breath sounds at the bases. HEART: Without murmur or gallop. ABDOMEN: Soft, nontender. She has some diffuse upper abdominal pain without CVA tenderness, rigidit y or rebound. EXTREMITIES: Without cyanosis, clubbing, or edema. RECTAL AND GENITAL: Deferred. NEUROLOGIC: No focal neurological abnormality. IMPRESSION AND PLAN: We will continue the patient on her Zosyn. She is on norepinephrine. She is a DNR/DNI. I believe the family still wants her to have antibiotic therapy. I will dictate my findin gs to Dr. Hutchins and to the hospitalist. Dictated By: NELLA PINEDA MD, JD/NTS Conf#: [id number] DID#: [id number] CC: ELEONORA SCHROEDER MD;*End*
[2019-02-11] MEDS: PIPER-TAZO 3.375 GM IV (PMX) 100 ML IVPB SCH (05:25)
[2019-02-11] MEDS: PANTOPRAZOLE (EC) 40 MG TAB PO SCH (05:25)
--- NOTE | 2019-02-11 06:16 | CONS ---
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 Abdominal pain CT scan abdomen and pelvis consistent with diffuse symmetrical rectal wall thickening submucosal edema and extensive perirectal edema imaging findings suggest sequela of stercoral colitis Trace ascites Gallbladder carcinoma and liver metastasis Left nephrolithiasis Will ask for family conference today but speak with Dr Roberson first Consultation Date/Type/Reason Admit Date/Time Feb 09, 2019 at 18:15 Date/Time of Note DATE: 02/11/19 TIME: 06:15 Past Medical History Medical History: other (See HPI) Home Meds Reported Medications Morphine Sulfate* (Oramorph SR*) 30 Mg Tablet.sa, 30 MG PO Q12, TAB.SA 02/09/19 Hydrocodone/Acetaminophen (Bennett 10-325 Tablet) 1 Each Tablet, 1 EACH PO Q6H, TAB 02/09/19 Discontinued Reported Medications Levothyroxine Sodium* (Levothyroxine Sodium*) 100 Mcg Tablet, 100 MCG PO BEFORE BREAKFAST, #30 TAB 01/02/19 Medications Current Medications Sodium Chloride 1,000 ml @ 125 mls/hr Q8H IV Last administered on 02/10/19at 23:48; Admin Dose 125 MLS/HR; Start 02/09/19 at 18:55 IV Flush (NS 3 ml) 3 ml PER PROTOCOL IV ; Start 02/09/19 at 19:00 Ondansetron HCl (Zofran Inj) 4 mg Q6H PRN IV NAUSEA/VOMITING; Start 02/09/19 at 19:00 Acetaminophen (Tylenol Tab) 650 mg Q6H PRN PO .PAIN 1-3 OR TEMP; Start 02/09/19 at 19:00 Pantoprazole (Protonix Tab) 40 mg DAILY@06 PO Last administered on 02/11/19at 05:25; Admin Dose 40 MG; Start 02/10/19 at 06:00 Midodrine (Proamatine) 10 mg TID@09,13,17 PO ; Start 02/10/19 at 09:00 Lorazepam (Ativan) 0.25 mg Q6H PRN IV PAIN LEVEL 1-3; Start 02/10/19 at 10:00 Piperacillin Sod/ Tazobactam Sod 100 ml @ 200 mls/hr Q8 IVPB Last administered on 02/11/19at 05:25; Admin Dose 200 MLS/HR; Start 02/10/19 at 14:00 Norepinephrine 16 mg/Dextrose 250 ml @ 0.94 mls/hr TITRATE IV ; Start 02/10/19 at 11:30 Lorazepam (Ativan) 0.5 mg Q6H PRN IV anxiety Last administered on 02/10/19at 22:45; Admin Dose 0.5 MG; Start 02/10/19 at 11:00 Hydromorphone HCl (Dilaudid STRIKE OFF MACHINE OPERATOR) 0.02 MG/HR CONTINUOUS RATE ... Q4PCA IV Last administered on 02/10/19at 19:58; Admin Dose 6 MG; Start 02/10/19 at 16:30 Allergies: Coded Allergies: No Known Allergy (Unverified , 02/09/19) Past Surgical History Past Surgical Hx: other (See HPI) Social History Alcohol Use: none Smoking Status: Never smoker Drug Use: none Exam/Review of Systems Exam Vitals Vital Signs Date Temp Pulse Resp B/P (MAP) Pulse Ox O2 O2 Flow FiO2 Time Delivery Rate 02/11/19 94 5.0 06:00 02/11/19 84 25 89/56 (67) 05:30 02/11/19 Nasal 05:00 Cannula 02/10/19 98.3 23:53 Intake and Output 02/10/19 02/10/19 02/11/19 1515:00 23:00 07:00 IntakeIntake Total 1100 ml 925 ml 750 ml OutputOutput Total 910 ml 740 ml 270 ml BalanceBalance 190 ml 185 ml 480 ml Constitutional: alert, oriented, distress Psych: anxiety Eyes: nl conjunctiva, EOMI, nl lids, nl sclera, PERRL ENMT: nl external ears & nose, nl lips & teeth, nl nasal mucosa & septum Respiratory: diminished breath sounds, labored breathing Cardiovascular: regular rate and rhythm, nl pulses Gastrointestinal: other (Distended all 4 quadrants diffusely tender all 4 quadrants) Extremities: normal pulses Neurological: WEBSITE ADMIN II-XII intact, nl mental status, nl speech, nl strength; No confused, No DTR's symmetric, No focal weakness, No lethargic, No numbness, No reflexes, No unresponsive, No other Results Result Diagram: 02/11/19 0504 02/10/19 9826 Results 24hrs Laboratory Tests Test 02/10/19 08:20 02/11/19 05:02 02/11/19 05:04 Stool Occult Blood NEGATIVE Lab Scanned Report BLOOD TRANSFUSION White Blood Count 1.4 L Red Blood Count 2.60 L Hemoglobin 8.0 L Hematocrit 24.9 L Mean Corpuscular Volume 95.8 Mean Corpuscular Hemoglobin 30.8 Mean Corpuscular 32.1 Hemoglobin Concent Red Cell Distribution Width 21.0 H Platelet Count 42 #L Mean Platelet Volume 10.5 H Immature Granulocytes % 0.000 L Neutrophils % 10.1 L Lymphocytes % 87.0 H Monocytes % 2.9 Eosinophils % 0.0 Basophils % 0.0 Nucleated Red Blood Cells % 0.0 Immature Granulocytes # 0.000 Neutrophils # 0.1 L Lymphocytes # 1.2 Monocytes # 0.0 L Eosinophils # 0.0 Basophils # 0.0 Nucleated Red Blood Cells # 0.0 Medications Medication Current Medications Sodium Chloride 1,000 ml @ 125 mls/hr Q8H IV Last administered on 02/10/19at 23:48; Admin Dose 125 MLS/HR; Start 02/09/19 at 18:55 IV Flush (NS 3 ml) 3 ml PER PROTOCOL IV ; Start 02/09/19 at 19:00 Ondansetron HCl (Zofran Inj) 4 mg Q6H PRN IV NAUSEA/VOMITING; Start 02/09/19 at 19:00 Acetaminophen (Tylenol Tab) 650 mg Q6H PRN PO .PAIN 1-3 OR TEMP; Start 02/09/19 at 19:00 Pantoprazole (Protonix Tab) 40 mg DAILY@06 PO Last administered on 02/11/19at 05:25; Admin Dose 40 MG; Start 02/10/19 at 06:00 Midodrine (Proamatine) 10 mg TID@09,13,17 PO ; Start 02/10/19 at 09:00 Lorazepam (Ativan) 0.25 mg Q6H PRN IV PAIN LEVEL 1-3; Start 02/10/19 at 10:00 Piperacillin Sod/ Tazobactam Sod 100 ml @ 200 mls/hr Q8 IVPB Last administered on 02/11/19at 05:25; Admin Dose 200 MLS/HR; Start 02/10/19 at 14:00 Norepinephrine 16 mg/Dextrose 250 ml @ 0.94 mls/hr TITRATE IV ; Start 02/10/19 at 11:30 Lorazepam (Ativan) 0.5 mg Q6H PRN IV anxiety Last administered on 02/10/19at 22:45; Admin Dose 0.5 MG; Start 02/10/19 at 11:00 Hydromorphone HCl (Dilaudid STRIKE OFF MACHINE OPERATOR) 0.02 MG/HR CONTINUOUS RATE ... Q4PCA IV Last administered on 02/10/19at 19:58; Admin Dose 6 MG; Start 02/10/19 at 16:30 WALKER ALAMO Feb 11, 2019 06:16
[2019-02-11] MEDS: MIDODRINE 5 MG TAB PO SCH (07:47)
--- NOTE | 2019-02-11 10:10 | PN ---
Date/Time of Note Date/Time of Note DATE: 02/11/19 TIME: 10:10 Assessment/Plan VTE Prophylaxis Risk score (from Ns)>0 risk: 6 SCD applied (from Ns): No SCD contraindicated: other Pharmacological prophylaxis: NA/contraindicated Pharm contraindication: thrombocytopenia Lines/Catheters IV [facility] Type [facility]from [facility] Peripheral IV Urinary Cath still in place: Yes Reason Cath still needed: terminal illness/intractable pain, other (indicate) Assessment/Plan Hospital Course This is a 53-year-old unfortunate female who had presented to emergency room since by her physician because of severe anemia with a hemoglobin of 5.9. She also complained of generalized weakness and severe abdominal pain. She is cu rrently managed in the intensive care units as follows: 1. 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 Severe cancer related pain -Appreciate pain management input and management of patient -Choice of pain control severely limited by presence of hypotension and borderline shock -Patient however is high risk for respiratory depression in view of severe abdominal distention and ascites limiting respiration -Remain in ICU on close monitoring, control pain as aggressively as possible while also being cognizance of side effects of medications -Schedule family meeting to notify them of concerns and discuss goals of care 4. Severe sepsis -Source likely gram-negative velasquez urinary tract infection chest x-ray also concerning for bibasilar atelectasis which could be significant for infection -Follow-up cultures -Continue empiric antibiotics -Patient also with foul-smelling diarrhea 5. Pancytopenia -Chemo related? -Neupogen? -Continue transfusion plan as per #1 -Await oncology recommendations 6. Dyslipidemia 7. Hypothyroidism -Patient has known hypothyroidism, resume home Synthroid Disposition: -Continue ICU monitoring and work-up -Discussion with family and oncologist as soon as possible -Appreciate all call the consultants -Overall prognosis very dire, close monitoring Care time greater than 40 minutes Result Diagram: 02/11/19 0504 02/11/19 0504 Results 24hrs Laboratory Tests Test 02/11/19 05:02 02/11/19 05:04 Lab Scanned Report BLOOD TRANSFUSION White Blood Count 1.4 L Red Blood Count 2.60 L Hemoglobin 8.0 L Hematocrit 24.9 L Mean Corpuscular Volume 95.8 Mean Corpuscular Hemoglobin 30.8 Mean Corpuscular Hemoglobin Concent 32.1 Red Cell Distribution Width 21.0 H Platelet Count 42 #L Mean Platelet Volume 10.5 H Immature Granulocytes % 0.000 L Neutrophils % 10.1 L Lymphocytes % 87.0 H Monocytes % 2.9 Eosinophils % 0.0 Basophils % 0.0 Nucleated Red Blood Cells % 0.0 Immature Granulocytes # 0.000 Neutrophils # 0.1 L Lymphocytes # 1.2 Monocytes # 0.0 L Eosinophils # 0.0 Basophils # 0.0 Nucleated Red Blood Cells # 0.0 Sodium Level 134 L Potassium Level 3.8 Chloride Level 105 Carbon Dioxide Level 22 Anion Gap 7 Blood Urea Nitrogen 14 Creatinine 0.51 Est Glomerular Filtrat Rate mL/min > 60 Glucose Level 73 Calcium Level 8.3 L Phosphorus Level 2.0 L Magnesium Level 2.1 Total Bilirubin 0.8 Direct Bilirubin 0.10 Indirect Bilirubin 0.7 Aspartate Amino Transf (AST/SGOT) 181 H Alanine Aminotransferase (ALT/SGPT) 50 Alkaline Phosphatase 859 H Total Protein 6.0 L Albumin 2.5 L Globulin 3.50 H Albumin/Globulin Ratio 0.71 Subjective 24 Hr Interval Summary Free Text/Dictation remains very lethargic Exam/Review of Systems Exam Vitals Vital Signs Date Temp Pulse Resp B/P (MAP) Pulse Ox O2 O2 Flow FiO2 Time Delivery Rate 02/11/19 88 08:00 02/11/19 29 98/60 (73) 94 Nasal 07:00 Cannula 02/11/19 6.0 06:00 02/10/19 98.3 23:53 Intake and Output 02/10/19 02/10/19 02/11/19 1515:00 23:00 07:00 IntakeIntake Total 1100 ml 925 ml 1100 ml OutputOutput Total 910 ml 740 ml 315 ml BalanceBalance 190 ml 185 ml 785 ml Exam Constitutional: alert, oriented, ill looking, diffuse anasarca Head: atraumatic, normocephalic, scleral jaundice and conjunctival pallor Neck: non-tender, supple Respiratory: clear to auscultation, diminished ++ Cardiovascular: regular rate and rhythm Gastrointestinal: Severely distended, ascitic, diffusely sore, distended bowel sounds Extremities: Severe lower extremity edema extending all the way to the abdomen, bilateral hands are swollen as well. Neuro: Able to move all extremities, no facial droop, no gross focal deficits Results Results 24hrs Laboratory Tests Test 02/11/19 05:02 02/11/19 05:04 Lab Scanned Report BLOOD TRANSFUSION White Blood Count 1.4 L Red Blood Count 2.60 L Hemoglobin 8.0 L Hematocrit 24.9 L Mean Corpuscular Volume 95.8 Mean Corpuscular Hemoglobin 30.8 Mean Corpuscular Hemoglobin Concent 32.1 Red Cell Distribution Width 21.0 H Platelet Count 42 #L Mean Platelet Volume 10.5 H Immature Granulocytes % 0.000 L Neutrophils % 10.1 L Lymphocytes % 87.0 H Monocytes % 2.9 Eosinophils % 0.0 Basophils % 0.0 Nucleated Red Blood Cells % 0.0 Immature Granulocytes # 0.000 Neutrophils # 0.1 L Lymphocytes # 1.2 Monocytes # 0.0 L Eosinophils # 0.0 Basophils # 0.0 Nucleated Red Blood Cells # 0.0 Sodium Level 134 L Potassium Level 3.8 Chloride Level 105 Carbon Dioxide Level 22 Anion Gap 7 Blood Urea Nitrogen 14 Creatinine 0.51 Est Glomerular Filtrat Rate mL/min > 60 Glucose Level 73 Calcium Level 8.3 L Phosphorus Level 2.0 L Magnesium Level 2.1 Total Bilirubin 0.8 Direct Bilirubin 0.10 Indirect Bilirubin 0.7 Aspartate Amino Transf (AST/SGOT) 181 H Alanine Aminotransferase (ALT/SGPT) 50 Alkaline Phosphatase 859 H Total Protein 6.0 L Albumin 2.5 L Globulin 3.50 H Albumin/Globulin Ratio 0.71 Medications Medication Current Medications Sodium Chloride 1,000 ml @ 125 mls/hr Q8H IV Last administered on 02/10/19at 23:48; Admin Dose 125 MLS/HR; Start 02/09/19 at 18:55 IV Flush (NS 3 ml) 3 ml PER PROTOCOL IV ; Start 02/09/19 at 19:00 Ondansetron HCl (Zofran Inj) 4 mg Q6H PRN IV NAUSEA/VOMITING; Start 02/09/19 at 19:00 Acetaminophen (Tylenol Tab) 650 mg Q6H PRN PO .PAIN 1-3 OR TEMP; Start 02/09/19 at 19:00 Pantoprazole (Protonix Tab) 40 mg DAILY@06 PO Last administered on 02/11/19at 05:25; Admin Dose 40 MG; Start 02/10/19 at 06:00 Midodrine (Proamatine) 10 mg TID@09,13,17 PO ; Start 02/10/19 at 09:00 Lorazepam (Ativan) 0.25 mg Q6H PRN IV PAIN LEVEL 1-3; Start 02/10/19 at 10:00 Piperacillin Sod/ Tazobactam Sod 100 ml @ 200 mls/hr Q8 IVPB Last administered on 02/11/19at 05:25; Admin Dose 200 MLS/HR; Start 02/10/19 at 14:00 Norepinephrine 16 mg/Dextrose 250 ml @ 0.94 mls/hr TITRATE IV ; Start 02/10/19 at 11:30 Lorazepam (Ativan) 0.5 mg Q6H PRN IV anxiety Last administered on 02/10/19at 22:45; Admin Dose 0.5 MG; Start 02/10/19 at 11:00 Hydromorphone HCl (Dilaudid EDUCATION AND TRAINING MANAGER) 0.02 MG/HR CONTINUOUS RATE ... Q4PCA IV Last administered on 02/10/19at 19:58; Admin Dose 6 MG; Start 02/10/19 at 16:30 AYDEN LEE Feb 11, 2019 10:10
--- NOTE | 2019-02-11 10:16 | PN ---
Date/Time of Note Date/Time of Note DATE: 02/11/19 TIME: 10:16 Assessment/Plan VTE Prophylaxis Risk score (from Nsg)>0 risk: 6 SCD applied (from Nsg): No Lines/Catheters IV Catheter Type (from Nrsg): Peripheral IV Urinary Cath still in place: Yes Assessment/Plan Hospital Course This is a 53-year-old unfortunate female who had presented to emergency room since by her physician because of severe anemia with a hemoglobin of 5.9. She also complained of generalized weakness and severe abdominal pain. She is currently managed in the intensive care units as follows: 1. 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 Severe cancer related pain -Appreciate pain management input and management of patient -Choice of pain control severely limited by presence of hypotension and borderline shock -Patient however is high risk for respiratory depression in view of severe abdominal distention and ascites limiting respiration -Remain in ICU on close monitoring, control pain as aggressively as possible while also being cognizance of side effects of medications -Schedule family meeting to notify them of concerns and discuss goals of care 4. Severe sepsis -Source likely gram-negative velasquez urinary tract infection chest x-ray also concerning for bibasilar atelectasis which could be significant for infection -Follow-up cultures -Continue empiric antibiotics -Patient also with foul-smelling diarrhea 5. Pancytopenia -Chemo related? -Neupogen? -Continue transfusion plan as per #1 -Await oncology recommendations 6. Dyslipidemia 7. Hypothyroidism -Patient has known hypothyroidism, resume home Synthroid Disposition: -Continue ICU monitoring and work-up -Discussion with family and oncologist as soon as possible -Appreciate all call the consultants -Overall prognosis very dire, close monitoring Care time greater than 40 minutes Result Diagram: 02/11/19 0504 02/11/19 0504 Results 24hrs Laboratory Tests Test 02/11/19 05:02 02/11/19 05:04 Lab Scanned Report BLOOD TRANSFUSION White Blood Count 1.4 L Red Blood Count 2.60 L Hemoglobin 8.0 L Hematocrit 24.9 L Mean Corpuscular Volume 95.8 Mean Corpuscular Hemoglobin 30.8 Mean Corpuscular Hemoglobin Concent 32.1 Red Cell Distribution Width 21.0 H Platelet Count 42 #L Mean Platelet Volume 10.5 H Immature Granulocytes % 0.000 L Neutrophils % 10.1 L Lymphocytes % 87.0 H Monocytes % 2.9 Eosinophils % 0.0 Basophils % 0.0 Nucleated Red Blood Cells % 0.0 Immature Granulocytes # 0.000 Neutrophils # 0.1 L Lymphocytes # 1.2 Monocytes # 0.0 L Eosinophils # 0.0 Basophils # 0.0 Nucleated Red Blood Cells # 0.0 Sodium Level 134 L Potassium Level 3.8 Chloride Level 105 Carbon Dioxide Level 22 Anion Gap 7 Blood Urea Nitrogen 14 Creatinine 0.51 Est Glomerular Filtrat Rate mL/min > 60 Glucose Level 73 Calcium Level 8.3 L Phosphorus Level 2.0 L Magnesium Level 2.1 Total Bilirubin 0.8 Direct Bilirubin 0.10 Indirect Bilirubin 0.7 Aspartate Amino Transf (AST/SGOT) 181 H Alanine Aminotransferase (ALT/SGPT) 50 Alkaline Phosphatase 859 H Total Protein 6.0 L Albumin 2.5 L Globulin 3.50 H Albumin/Globulin Ratio 0.71 Exam/Review of Systems Exam Vitals Vital Signs Date Temp Pulse Resp B/P (MAP) Pulse Ox O2 O2 Flow FiO2 Time Delivery Rate 02/11/19 88 08:00 02/11/19 29 98/60 (73) 94 Nasal 07:00 Cannula 02/11/19 6.0 06:00 02/10/19 98.3 23:53 Intake and Output 02/10/19 02/10/19 02/11/19 1515:00 23:00 07:00 IntakeIntake Total 1100 ml 925 ml 1100 ml OutputOutput Total 910 ml 740 ml 315 ml BalanceBalance 190 ml 185 ml 785 ml Results Results 24hrs Laboratory Tests Test 02/11/19 05:02 02/11/19 05:04 Lab Scanned Report BLOOD TRANSFUSION White Blood Count 1.4 L Red Blood Count 2.60 L Hemoglobin 8.0 L Hematocrit 24.9 L Mean Corpuscular Volume 95.8 Mean Corpuscular Hemoglobin 30.8 Mean Corpuscular Hemoglobin Concent 32.1 Red Cell Distribution Width 21.0 H Platelet Count 42 #L Mean Platelet Volume 10.5 H Immature Granulocytes % 0.000 L Neutrophils % 10.1 L Lymphocytes % 87.0 H Monocytes % 2.9 Eosinophils % 0.0 Basophils % 0.0 Nucleated Red Blood Cells % 0.0 Immature Granulocytes # 0.000 Neutrophils # 0.1 L Lymphocytes # 1.2 Monocytes # 0.0 L Eosinophils # 0.0 Basophils # 0.0 Nucleated Red Blood Cells # 0.0 Sodium Level 134 L Potassium Level 3.8 Chloride Level 105 Carbon Dioxide Level 22 Anion Gap 7 Blood Urea Nitrogen 14 Creatinine 0.51 Est Glomerular Filtrat Rate mL/min > 60 Glucose Level 73 Calcium Level 8.3 L Phosphorus Level 2.0 L Magnesium Level 2.1 Total Bilirubin 0.8 Direct Bilirubin 0.10 Indirect Bilirubin 0.7 Aspartate Amino Transf (AST/SGOT) 181 H Alanine Aminotransferase (ALT/SGPT) 50 Alkaline Phosphatase 859 H Total Protein 6.0 L Albumin 2.5 L Globulin 3.50 H Albumin/Globulin Ratio 0.71 Medications Medication Current Medications Sodium Chloride 1,000 ml @ 125 mls/hr Q8H IV Last administered on 02/10/19at 23:48; Admin Dose 125 MLS/HR; Start 02/09/19 at 18:55 IV Flush (NS 3 ml) 3 ml PER PROTOCOL IV ; Start 02/09/19 at 19:00 Ondansetron HCl (Zofran Inj) 4 mg Q6H PRN IV NAUSEA/VOMITING; Start 02/09/19 at 19:00 Acetaminophen (Tylenol Tab) 650 mg Q6H PRN PO .PAIN 1-3 OR TEMP; Start 02/09/19 at 19:00 Pantoprazole (Protonix Tab) 40 mg DAILY@06 PO Last administered on 02/11/19at 05:25; Admin Dose 40 MG; Start 02/10/19 at 06:00 Midodrine (Proamatine) 10 mg TID@09,13,17 PO ; Start 02/10/19 at 09:00 Lorazepam (Ativan) 0.25 mg Q6H PRN IV PAIN LEVEL 1-3; Start 02/10/19 at 10:00 Piperacillin Sod/ Tazobactam Sod 100 ml @ 200 mls/hr Q8 IVPB Last administered on 02/11/19at 05:25; Admin Dose 200 MLS/HR; Start 02/10/19 at 14:00 Norepinephrine 16 mg/Dextrose 250 ml @ 0.94 mls/hr TITRATE IV ; Start 02/10/19 at 11:30 Lorazepam (Ativan) 0.5 mg Q6H PRN IV anxiety Last administered on 02/10/19at 22:45; Admin Dose 0.5 MG; Start 02/10/19 at 11:00 Hydromorphone HCl (Dilaudid HEARING DOG TRAINER) 0.02 MG/HR CONTINUOUS RATE ... Q4PCA IV Last administered on 02/10/19at 19:58; Admin Dose 6 MG; Start 02/10/19 at 16:30 AYDEN LEE Feb 11, 2019 10:16
--- NOTE | 2019-02-11 11:34 | CONS ---
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 as explained to the family, any more chemotherapy would likely hurt more than help the patient. family understands that the patient has terminal disease and will likely pass away soon -I agree with comfort measures at this time. hospice consult pending #Sepsis -2/2 GNR in urine -continue broad spectrum antibiotics #Pancytopenia -2/2 liver disease as well as chemo effect -s/p blood transfusion Thank you for the opportunity to participate in this patients care A total of 40 minutes of face to face time was spent speaking with the patient, of which greater than 50% was spent in counseling and coordination of care and the detailed question and answer session. Consultation Date/Type/Reason Admit Date/Time Feb 09, 2019 at 18:15 Initial Consult Date 02/10/19 Type of Consult oncology Reason for Consultation metastatic neuroendocrine tumor Requesting Provider: AYDEN LEE Date/Time of Note DATE: 02/11/19 TIME: 11:33 24 HR Interval Summary Free Text/Dictation pt requiring pain meds ATC. still very confused. family has agreed to comfort measures Exam/Review of Systems Exam Vitals Vital Signs Date Temp Pulse Resp B/P (MAP) Pulse Ox O2 O2 Flow FiO2 Time Delivery Rate 02/11/19 83 24 90/57 (68) 95 11:00 02/11/19 98.1 Nasal 6.0 08:00 Cannula Intake and Output 02/10/19 02/10/19 02/11/19 1515:00 23:00 07:00 IntakeIntake Total 1100 ml 925 ml 1100 ml OutputOutput Total 910 ml 740 ml 355 ml BalanceBalance 190 ml 185 ml 745 ml Constitutional: distress, frail Psych: anxiety, confusion, depression Head: normocephalic Eyes: nl conjunctiva, icteric ENMT: nl external ears & nose Neck: supple Respiratory: diminished breath sounds Cardiovascular: other (tachycardic) Gastrointestinal: soft Musculoskeletal: nl extremities to inspection Extremities: edema Results Result Diagram: 02/11/19 0504 02/11/19 0504 Results 24hrs Laboratory Tests Test 02/11/19 05:02 02/11/19 05:04 Lab Scanned Report BLOOD TRANSFUSION White Blood Count 1.4 L Red Blood Count 2.60 L Hemoglobin 8.0 L Hematocrit 24.9 L Mean Corpuscular Volume 95.8 Mean Corpuscular Hemoglobin 30.8 Mean Corpuscular Hemoglobin Concent 32.1 Red Cell Distribution Width 21.0 H Platelet Count 42 #L Mean Platelet Volume 10.5 H Immature Granulocytes % 0.000 L Neutrophils % 10.1 L Lymphocytes % 87.0 H Monocytes % 2.9 Eosinophils % 0.0 Basophils % 0.0 Nucleated Red Blood Cells % 0.0 Immature Granulocytes # 0.000 Neutrophils # 0.1 L Lymphocytes # 1.2 Monocytes # 0.0 L Eosinophils # 0.0 Basophils # 0.0 Nucleated Red Blood Cells # 0.0 Sodium Level 134 L Potassium Level 3.8 Chloride Level 105 Carbon Dioxide Level 22 Anion Gap 7 Blood Urea Nitrogen 14 Creatinine 0.51 Est Glomerular Filtrat Rate mL/min > 60 Glucose Level 73 Calcium Level 8.3 L Phosphorus Level 2.0 L Magnesium Level 2.1 Total Bilirubin 0.8 Direct Bilirubin 0.10 Indirect Bilirubin 0.7 Aspartate Amino Transf (AST/SGOT) 181 H Alanine Aminotransferase (ALT/SGPT) 50 Alkaline Phosphatase 859 H Total Protein 6.0 L Albumin 2.5 L Globulin 3.50 H Albumin/Globulin Ratio 0.71 Medications Medication Current Medications IV Flush (NS 3 ml) 3 ml PER PROTOCOL IV ; Start 02/09/19 at 19:00 Ondansetron HCl (Zofran Inj) 4 mg Q6H PRN IV NAUSEA/VOMITING; Start 02/09/19 at 19:00 Acetaminophen (Tylenol Tab) 650 mg Q6H PRN PO .PAIN 1-3 OR TEMP; Start 02/09/19 at 19:00 Lorazepam (Ativan) 0.25 mg Q6H PRN IV PAIN LEVEL 1-3; Start 02/10/19 at 10:00 Lorazepam (Ativan) 0.5 mg Q6H PRN IV anxiety Last administered on 02/10/19at 22:45; Admin Dose 0.5 MG; Start 02/10/19 at 11:00 Hydromorphone HCl (Dilaudid INDUSTRIAL COFFEE GRINDER) 0.02 MG/HR CONTINUOUS RATE ... Q4PCA IV Last administered on 02/10/19at 19:58; Admin Dose 6 MG; Start 02/10/19 at 16:30 AALIYAH BUTLER M.D. Feb 11, 2019 11:34
--- NOTE | 2019-02-11 14:17 | PN ---
DATE: 02/11/2019 SUBJECTIVE: Patient is sedated status post pain medication, in no distress. Family at bedside. She is afebrile and looks comfortable. WBC 1.4, platelets 42. BUN 14, creatinine 0.51. PHYSICAL EXAMINATION: GENERAL: Obese, chronically ill-appearing, middle-aged woman who is in no distress. HEENT: Head atraumatic, normocephalic. NECK: Supple, trachea midline. CHEST: Rise symmetrical. Breath sounds diminished. HEART: S1, S2. ABDOMEN: Obese, soft, bowel tones present. ASSESSMENT: 1. 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 2. Sepsis. 3. Urinary tract infection. 4. Pancytopenia. 5. Obesity. PLAN: The patient's prognosis is very poor. She is DNR status. Plan for hospice evaluation. She i s off antibiotics, currently on comfort care. We will sign off. Dictated By: NAYANA MORRISON PHOTOGRAPHIC PROCESS WORKER for NELLA PINEDA MD NI/NTS Conf#: [id number] DID#: [id number] CC: ELEONORA SCHROEDER MD;*EndCC*
[2019-02-11] MEDS: HYDROmorphONE 0.2 MG/ML PCA IV SCH (17:46)
[2019-02-11] MEDS ORDERED: DIMETHICONE STICK TOP PRN (18:00)
[2019-02-11] MEDS ORDERED: ACETAMINOPHEN 325 MG TAB PO PRN (18:00)
[2019-02-11] MEDS ORDERED: SCOPOLAMINE 1.5 MG PATCH TRANSDERM SCH (18:30)
[2019-02-11] MEDS ORDERED: ACETAMINOPHEN 650 MG SUPP PR PRN (18:30)
[2019-02-11] MEDS: LORAZEPAM 2 MG INJ IV PRN (19:11)
[2019-02-11] MEDS ORDERED: ATROPINE 1% 5 ML OPH SL PRN (19:30)
[2019-02-11] MEDS ORDERED: ARTIFICIAL TEARS 15 ML OPH BOTH EYES PRN (19:30)
[2019-02-12] VITALS (8 sets, daily range): BP systolic 88–105; BP diastolic 51–57; PULSE 86–91; RESP 18–26
[2019-02-12] MEDS: LORAZEPAM 2 MG INJ IV PRN (00:44)
[2019-02-12] MEDS: ALBUTEROL/IPRATROPIUM (NEB) 3 ML AMP HHN PRN ×2 (14:38→19:14)
[2019-02-12] MEDS: HYDROmorphONE 0.2 MG/ML PCA IV SCH (14:55)
[2019-02-13] MEDS: ALBUTEROL/IPRATROPIUM (NEB) 3 ML AMP HHN PRN (00:09)
[2019-02-13 02:00] VITALS: BP 93/55; PULSE 98; RESP 22
[2019-02-13 03:15] VITALS: BP 99/55; PULSE 92; RESP 20
[2019-02-13 07:15] VITALS: BP 83/52; PULSE 81; RESP 20
[2019-02-13] MEDS: HYDROmorphONE 0.2 MG/ML PCA IV SCH ×2 (08:00→23:59)
[2019-02-13] MEDS ORDERED: LORAZEPAM 2 MG INJ IV PRN (13:30)
[2019-02-13 13:48] VITALS: BP 91/55; PULSE 91; RESP 20
--- NOTE | 2019-02-13 14:50 | CONS ---
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 as explained to the family, any more chemotherapy would likely hurt more than help the patient. family understands that the patient has terminal disease and will likely pass away soon -I agree with comfort measures at this time. hospice consult pending # Sepsis -2/2 GNR in urine -continue broad spectrum antibiotics # Pancytopenia -2/2 liver disease as well as chemo effect -s/p blood transfusion Patient seen in collaboration with Dr Hutchins Thank you for the opportunity to participate in this patients care A total of 40 minutes of face to face time was spent speaking with the patient, of which greater than 50% was spent in counseling and coordination of care and the detailed question and answer session. Consultation Date/Type/Reason Admit Date/Time Feb 09, 2019 at 18:15 Initial Consult Date 02/10/19 Type of Consult HEM/ ONC Reason for Consultation High grade neuroendocrine tumor Requesting Provider: AYDEN LEE Date/Time of Note DATE: 02/13/19 TIME: 14:50 24 HR Interval Summary Free Text/Dictation Seems comfortable Family at bed side [facility] follows no events overnight Subjective hx not possible: pt critical Constitutional: requiring IVF, requiring O2 Detailed Summary Eyes: no complaints ENT: no complaints Respiratory: no complaints Cardiovascular: no complaints Gastrointestinal: pain, decreased appetite, nausea Genitourinary: no complaints Musculoskeletal: other (weakness) Skin: no complaints Neurologic: no complaints Psychological: nl mood/affect Exam/Review of Systems Exam Vitals Vital Signs Date Temp Pulse Resp B/P (MAP) Pulse Ox O2 O2 Flow FiO2 Time Delivery Rate 02/13/19 99.1 91 20 91/55 (67) 98 13:48 02/13/19 Nasal 5.0 10:57 Cannula Intake and Output 02/12/19 02/12/19 02/13/19 1515:00 23:00 07:00 IntakeIntake Total 200 ml 480 ml 300 ml BalanceBalance 200 ml 480 ml 300 ml Constitutional: alert, well developed, frail Psych: nl mood/affect Head: atraumatic Eyes: nl lids, icteric ENMT: nl external ears & nose Neck: non-tender Respiratory: clear to auscultation Cardiovascular: nl pulses, other (s1s2) Gastrointestinal: soft, tender Musculoskeletal: joint tenderness, muscle weakness Extremities: normal pulses Neurological: nl speech Skin: other (jaundiced) Results Result Diagram: 02/11/19 0504 02/11/19 0504 Medications Medication Current Medications IV Flush (NS 3 ml) 3 ml PER PROTOCOL IV ; Start 02/09/19 at 19:00 Ondansetron HCl (Zofran Inj) 4 mg Q6H PRN IV NAUSEA/VOMITING; Start 02/09/19 at 19:00 Acetaminophen (Tylenol Tab) 650 mg Q6H PRN PO .PAIN 1-3 OR TEMP; Start 02/09/19 at 19:00 Lorazepam (Ativan) 0.25 mg Q6H PRN IV PAIN LEVEL 1-3; Start 02/10/19 at 10:00 Lorazepam (Ativan) 0.5 mg Q6H PRN IV anxiety Last administered on 02/11/19at 19:11; Admin Dose 0.5 MG; Start 02/10/19 at 11:00 Hydromorphone HCl (Dilaudid [employer]) 0.2 MG/HR CONTINUOUS RATE ... Q4PCA IV Last administered on 02/13/19at 08:00; Admin Dose 6 MG; Start 02/10/19 at 16:30 Acetaminophen (Tylenol Tab) 650 mg Q4H PRN PO MILD DISCOMFORT OR TEMP>99.5F; Start 02/11/19 at 18:00 Lorazepam (Ativan) 1 mg Q2H PRN IV ANXIETY/SEIZURES Last administered on 02/12/19at 00:44; Admin Dose 1 MG; Start 02/11/19 at 18:00 Atropine Sulfate (Atropine 1% Oph) 2 drop Q4H PRN SL TERMINAL CONGESTION; Start 02/11/19 at 19:30 Eye Lubricant (Artificial Tears Oph) 2 drop EACH SHIFT PRN BOTH EYES DRY EYES; Start 02/11/19 at 19:30 Dimethicone (Blistex Lip [place]) 1 applic EACH SHIFT PRN TOP DRY LIP(S) Last administered on 02/12/19at 00:52; Admin Dose 1 APPLIC; Start 02/11/19 at 18:00 Acetaminophen (Tylenol Supp) 650 mg Q6H PRN [place] FEVER; Start 02/11/19 at 18:30 Bisacodyl (Dulcolax Supp) 10 mg DAILY PRN [place] CONSTIPATION; Start 02/11/19 at 18:30 Albuterol/ Ipratropium (Duoneb) 3 ml Q4H RESP THERAPY PRN HHN SHORTNESS OF BREATH Last administered on 02/13/19at 00:09; Admin Dose 3 ML; Start 02/12/19 at 13:17 Lorazepam (Ativan) 1 mg HS PRN IV Insomnia ; Start 02/13/19 at 13:30 CATALINA LUCAS Feb 13, 2019 14:50
[2019-02-13 20:00] VITALS: RESP 20
[2019-02-13 22:00] VITALS: RESP 18
[2019-02-14] VITALS (12 sets, daily range): BP systolic 83; BP diastolic 42; PULSE 96; RESP 18–22
[2019-02-14] MEDS: HYDROmorphONE 0.2 MG/ML PCA IV SCH ×2 (09:30→22:47)
[2019-02-14] MEDS: NEOMYC/POLYMYX/BACIT 30 GM OINT TOP SCH (13:26)
--- NOTE | 2019-02-14 14:03 | CONS ---
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 as explained to the family, any more chemotherapy would likely hurt more than help the patient. family understands that the patient has terminal disease and will likely pass away soon -I agree with comfort measures at this time. hospice consult pending #Sepsis -2/2 GNR in urine -continue broad spectrum antibiotics #Pancytopenia -2/2 liver disease as well as chemo effect -s/p blood transfusion Patient seen in collaboration with Dr Hutchins Thank you for the opportunity to participate in this patients care A total of 40 minutes of face to face time was spent speaking with the patient, of which greater than 50% was spent in counseling and coordination of care and the detailed question and answer session. Consultation Date/Type/Reason Admit Date/Time Feb 09, 2019 at 6:15 pm Initial Consult Date 02/10/19 Type of Consult HEM/ONC Reason for Consultation High grade neuroendocrine tumor Requesting Provider: AYDEN LEE Date/Time of Note DATE: 02/14/19 TIME: 14:03 24 HR Interval Summary Free Text/Dictation c/o general body pain- [facility] follows no events last night Constitutional: requiring IVF, requiring O2 Detailed Summary Eyes: no complaints ENT: no complaints Respiratory: no complaints Cardiovascular: no complaints Gastrointestinal: decreased appetite Genitourinary: no complaints Musculoskeletal: bone/joint pain Neurologic: no complaints Lymphatic: no complaints Exam/Review of Systems Exam Vitals Vital Signs Date Temp Pulse Resp B/P (MAP) Pulse Ox O2 O2 Flow FiO2 Time Delivery Rate 02/14/19 18 Nasal 10:00 Cannula 02/14/19 5.0 08:00 02/13/19 98.4 16:56 02/13/19 91 91/55 (67) 98 13:48 Intake and Output 02/13/19 02/13/19 02/14/19 1515:00 23:00 07:00 IntakeIntake Total 640 ml 300 ml OutputOutput Total 500 ml BalanceBalance 140 ml 300 ml Constitutional: alert, well developed, frail Psych: nl mood/affect Head: normocephalic Eyes: nl lids, icteric ENMT: nl external ears & nose Neck: non-tender Respiratory: clear to auscultation Cardiovascular: nl pulses, other (s1s2) Gastrointestinal: soft, tender Musculoskeletal: nl extremities to inspection Extremities: normal pulses Neurological: nl speech Results Result Diagram: 02/11/19 0504 02/11/19 0504 Medications Medication Current Medications IV Flush (NS 3 ml) 3 ml PER PROTOCOL IV ; Start 02/09/19 at 19:00 Ondansetron HCl (Zofran Inj) 4 mg Q6H PRN IV NAUSEA/VOMITING; Start 02/09/19 at 19:00 Acetaminophen (Tylenol Tab) 650 mg Q6H PRN PO .PAIN 1-3 OR TEMP Last administered on 02/13/19at 16:11; Admin Dose 650 MG; Start 02/09/19 at 19:00 Lorazepam (Ativan) 0.25 mg Q6H PRN IV PAIN LEVEL 1-3; Start 02/10/19 at 10:00 Lorazepam (Ativan) 0.5 mg Q6H PRN IV anxiety Last administered on 02/11/19at 19:11; Admin Dose 0.5 MG; Start 02/10/19 at 11:00 Acetaminophen (Tylenol Tab) 650 mg Q4H PRN PO MILD DISCOMFORT OR TEMP>99.5F; Start 02/11/19 at 18:00 Lorazepam (Ativan) 1 mg Q2H PRN IV ANXIETY/SEIZURES Last administered on 02/12/19at 00:44; Admin Dose 1 MG; Start 02/11/19 at 18:00 Atropine Sulfate (Atropine 1% Oph) 2 drop Q4H PRN SL TERMINAL CONGESTION; Start 02/11/19 at 19:30 Eye Lubricant (Artificial Tears Oph) 2 drop EACH SHIFT PRN BOTH EYES DRY EYES; Start 02/11/19 at 19:30 Dimethicone (Blistex Lip [place]) 1 applic EACH SHIFT PRN TOP DRY LIP(S) Last administered on 02/12/19at 00:52; Admin Dose 1 APPLIC; Start 02/11/19 at 18:00 Acetaminophen (Tylenol Supp) 650 mg Q6H PRN [place] FEVER; Start 02/11/19 at 18:30 Bisacodyl (Dulcolax Supp) 10 mg DAILY PRN [place] CONSTIPATION; Start 02/11/19 at 18:30 Albuterol/ Ipratropium (Duoneb) 3 ml Q4H RESP THERAPY PRN HHN SHORTNESS OF BREATH Last administered on 02/13/19at 00:09; Admin Dose 3 ML; Start 02/12/19 at 13:17 Lorazepam (Ativan) 1 mg HS PRN IV Insomnia Last administered on 02/13/19at 21:04; Admin Dose 1 MG; Start 02/13/19 at 13:30 Hydromorphone HCl (Dilaudid OPTICAL GLASS ETCHER) 0.4MG/HR CONTINUOUS R... Q4PCA IV Last administered on 02/14/19at 09:30; Admin Dose 6 MG; Start 02/13/19 at 20:00 Neomycin/ Polymyxin/ Bacitracin (Neosporin Topical Oint) 1 applic DAILY TOP Las t administered on 02/14/19at 13:26; Admin Dose 1 APPLIC; Start 02/14/19 at 13:00 Levofloxacin (Levaquin) 500 mg DAILY@06 PO ; Start 02/15/19 at 06:00; Stop 02/24/19 at 05:59; Status CATALINA ROWAN Feb 14, 2019 14:03
[2019-02-14] MEDS: ALBUTEROL/IPRATROPIUM (NEB) 3 ML AMP HHN PRN ×2 (17:18→20:17)
[2019-02-14] MEDS: BISACODYL 10 MG SUPP PR PRN (20:10)
[2019-02-15] VITALS (13 sets, daily range): RESP 17–19
[2019-02-15] MEDS: ALBUTEROL/IPRATROPIUM (NEB) 3 ML AMP HHN PRN ×4 (00:48→21:19)
[2019-02-15] MEDS: LORAZEPAM 2 MG INJ IV PRN ×3 (00:55→21:12)
[2019-02-15] MEDS: LEVOFLOXACIN 500 MG TAB PO SCH (05:30)
--- NOTE | 2019-02-15 06:22 | HP ---
DATE OF ADMISSION: 02/09/2019 PRIMARY DIAGNOSIS: High grade neuroendocrine tumor involving liver and lungs. CHIEF COMPLAINT: Abdominal and back pain, decreased p.o. intake. HISTORY OF PRESENT ILLNESS: As per family and on review of medical records as well as speaking to the patient's son, Brynn, who is currently present with the patient. The patient is unable to provide detailed history, though she is able to answer questions appropriately. Ms. 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 She was initially started on chemotherapy with carboplatin, etoposide on 02/02/2019 and subsequently admitted to the [facility] for severe sepsis from gram-negative rods in urine as well as severe anemia and she has since received blood transfusions and broad spectrum antibiotics for infections and currently it has been deemed that she is not a surgical candidate for any more chemotherapy and has since been transitioned to the inpatient hospice unit yesterday. Currently, she has been having very minimal p.o. intake, where yesterday she did not eat anything and today only a few bites of the breakfast and she continues to be bedbound, though she is able to sit up at the edge of the bed. She did have a bowel movement yesterday and has been having minimal urine output. She has been complaining of abdominal pain, describing it as a sharp pain as well as lower back pain for which she has been started on Dilaudid drip at 0.02 mg per hour and 0.2 mg bolus every 10 minutes, of which she did receive about 9 doses since yesterday 8:00 p.m. and she still says that her pain is not well controlled and she rates it at an 8 at its worst, and states that she does not get significant relief with the bolus dose. She was given Ativan 1 mg earlier today around midnight, 1 mg when she was anxious. Scopolamine patch has also been placed on her earlier today, but she does not have any secretions and she is still awake and alert, oriented x3, able to answer questions appropriately. She does say that she feels her throat and tongue are dry. She denies any complaints of chest pain, palpitations, headache, dizziness. No complaints of any nausea, vomiting. She does have lower extremity swelling. She continues to be on O2 at 5 lit via nasal canula continuosly. Regarding her functional status, she is dependent on 6/6 ADL's with a PPS of 30%. She is continent of bowel and bladder. REVIEW OF SYSTEMS: Patient with decreased p.o. intake, increased debility and weakness. HEENT: No evidence of any erythema or discharge from the eyes. The patient reports dryness of her tongue and throat. CARDIOVASCULAR: The patient with bilateral lower extremity swelling. RESPIRATORY: The patient does endorse being short of breath occasionally on minimal exertion as well as at rest and is receiving oxygen continuously via nasal cannula. GASTROINTESTINAL: The patient does complain of abdominal pain and is currently on a regular diet with very minimal p.o. intake. She did have bowel movement yesterday and today. GENITOURINARY: No evidence of any foul smelling urine or hematuria. SKIN: The patient has an open wound on the left campuzano. Also has a bruise on the right inner forearm. NEUROLOGIC: The patient is awake and alert, oriented x3, able to answer questions appropriately without any obvious focal neurological deficits. PAST MEDICAL HISTORY: History of recently diagnosed high grade neuroendocrine tumor involving the liver and lungs, unknown primary site. She was admitted with neutropenic sepsis and severe anemia. History of hypothyroidism. PAST SURGICAL HISTORY: None available. FAMILY HISTORY: Noncontributory. SOCIAL HISTORY: No history of any alcohol, drug abuse. ALLERGIES: NO KNOWN DRUG ALLERGIES. MEDICATIONS: She is currently on the following medications: 1. Atropine sulfate 1%, 2 drops every 4 hours as needed. 2. Artificial Tears 2 drops each eye p.r.n.. 3. Scopolamine patch, 1 patch every 72 hours. 4. Tylenol suppository 650 mg every 6 hours as needed. 5. Dulcolax suppository 10 mg every day as needed. 6. Tylenol suppository 650 mg every 4 hours as needed. 7. Lorazepam 1 mg every 2 hours as needed. 8. Dilaudid 0.02 mg per hour continuous with the basal dose of 0.2 mg every 10 minutes as needed. 9. Lorazepam 0.5 mg every 6 hours as needed for anxiety, which she did receive yesterday evening as well as 0.25 mg every 6 hours as needed. 10. Zofran 4 mg every 6 hours as needed. 11. Tylenol 650 mg every 6 hours as needed. PHYSICAL EXAMINATION: VITAL SIGNS: Temperature 97.8, heart rate 86 per minute and regular, respirations 20 per minute and regular, blood pressure 94/54, saturating 96% on 5 liters via nasal cannula. GENERAL: The patient is an obese female who is lying comfortably in bed in mild distress due to pain. HEENT: PERRL. Mild Icterus present. Mouth with dry mucous membranes. NECK: Supple without any jugular venous distention or lymphadenopathy. HEART: S1, S2 present normally. Regular rate and rhythm without any murmurs, rubs, or gallops. LUNGS: Clear to auscultation bilaterally without any wheezes, rhonchi or rales. ABDOMEN: Soft, nontender. Bowel sounds present normally. No mass. EXTREMITIES: 3+ pedal edema bilaterally. SKIN: No lesions or sores noted. NEUROLOGIC: The patient is awake and alert, is oriented x3, able to answer questions appropriately. ASSESSMENT AND PLAN: Ms. Mendoza is a 53-year-old female with a recently diagnosed high grade neuroendocrine tumor involving the liver and lungs, status post 1 cycle of chemotherapy from 02/02-, who was recently admitted to the hospital for neutropenic sepsis and severe anemia, status post with broad spectrum antibiotics for gram-negative rods in urine as well as hypovolemic shock, who was admitted to the inpatient hospice unit yesterday due to severe uncontrolled pain. Currently, she is on a Dilaudid drip at 0.02 mg per hour basal and 0.2 mg bolus every 10 minutes as needed and she still continues to have abdominal and back pain. PLAN:The patient complains of abdominal and back pain for which she is currently on Dilaudid 0.02 mg per hour and 0.2 mg bolus every 10 minutes and since yesterday at 8 p.m., she received 9 doses of the bolus dose and currently she states the pain is still not controlled and she prefers for her Dilaudid drip to be increased and even if it causes sedation, she prefers to be comfortable. The patient's son is at bedside also verbalizes the same thing, so recommend increase the Dilaudid drip to 0.2 mg per hour basal rate with a bolus dose of 0.4 mg every 10 minutes as needed and continue to evaluate. Shortness of breath. The patient does have issues with shortness of breath for which she is currently on oxygen at 5 liters via nasal cannula. Will recommend also to use Dilaudid for any shortness of breath she may have. Decreased p.o. intake, patient has been having decreased p.o. intake and she did not eat anything yesterday for dinner and for breakfast today, she ate about 50%. Occasional anxiety. The patient has been having issues occasional anxiety for which she is currently on Ativan 1 mg every 2 hours as needed for severe anxiety, 0.5 mg every 2 hours as needed for moderate and 0.25 mg for mild anxiety for which she has been receiving intermittently. Recommend to continue the same. Dryness of mouth and throat. The patient has been complaining of dryness of mouth and throat, and she does not have any issues with excess secretions. She has had a scopolamine patch placed earlier today morning. Would recommend to discontinue the scopolamine patch. The patient is currently DNR without any aggressive treatment interventions. All of the questions or concerns of the patient and the son Brynn have been addressed and answered and they are aware that [facility] is available 24 hours a day for any questions or change in condition. All of this has been corroborated with the [facility] staff and well as the facility staff. Dictated By: CHRIS CHEEMA/NAVYA Conf#: [id number] DID#: [id number] MTDD
--- NOTE | 2019-02-15 06:35 | PN ---
DATE: 02/14/2019 SUBJECTIVE: The patient has been increasingly somnolent. Her pain appears to be well controlled on the current Dilaudid basal rate of 0.2 mg per hour and a bolus of 0.4 mg every 10 minutes as needed, though she did require 12 doses in the last 24 hours. She had been started on Ativan 1 mg at bedtime for insomnia and did receive 1 dose yesterday last night and she slept well after that. Her p.o. intake appears to be improving since yesterday. She said she had a fair appetite, but today she did not eat well. She did have a bowel movement yesterday and she has been urinating at the bedside commode. She does appear to have issues with shortness of breath for which she has also been using the Dilaudid bolus rate. She also did have fever yesterday about 99.1, which decreased to 98.4 after receiving a Tylenol tablet. MEDICATIONS: She is currently on the following medications: 1. Ativan 1 mg at bedtime as needed for insomnia. 2. Dilaudid basal rate 0.2 mg per hour and bolus of 0.4 mg every 10 minutes as needed. 3. DuoNeb inhalation every 4 hours as needed. 4. Atropine 1%, 2 drops every 4 hours as needed for secretions. 5. Tylenol suppository 650 mg every 6 hours as needed for fever. 6. Bisacodyl 10 mg daily as needed. 7. Tylenol tablet 650 mg every 4 hours as needed. 8. Lorazepam 1 mg every 2 hours as needed for severe anxiety, 0.5 mg every 6 hours as needed for moderate anxiety and 0.25 mg every 6 hours as needed for mild anxiety. 9. Zofran 4 mg every 6 hours as needed for nausea and vomiting. PHYSICAL EXAMINATION: VITAL SIGNS: Temperature 97.6, heart rate 89 per minute and regular, respirations 20 per minute and regular, blood pressure 93/58. GENERAL: The patient is an obese female who is lying comfortably in bed, in no apparent distress, on 4 liters of nasal cannula oxygen. HEENT: Icterus present. Slight pallor present. No oral lesions or erythema noted. NECK: Supple without any jugular venous distention or lymphadenopathy. CARDIOVASCULAR: S1, S2 present normally. Regular rate and rhythm without any murmurs, rubs, or gallops. LUNGS: Clear to auscultation bilaterally without any wheezes, rhonchi or rales. ABDOMEN: Soft, slight tenderness in the umbilical area, but no or guarding or rigidity. Bowel sounds present normally. EXTREMITIES: 3+ pedal edema bilaterally. SKIN: The patient with a 1 x 1 cm open lesion on the left campuzano for which wound care is being provided. NEUROLOGIC: The patient is awake and alert, oriented x2, able to answer questions appropriately without any obvious focal neurological deficits, but generalized weakness. ASSESSMENT AND PLAN: 1. Ms. Munguia is a 53-year-old female with past medical history significant for high-grade neuroendocrine tumor involving the liver and lungs and other comorbidities including hypothyroidisim, who was admitted to the hospital with neutropenic sepsis and severe anemia after a cycle of chemotherapy, carboplatin/etoposide on 02/02 to 02/04 and currently she has been declining and is not a candidate for any more chemotherapy. She has since been admitted to the inpatient hospice unit and currently she has been having issues with abdominal and back pain as well as shortness of breath for which medication adjustments have been made. PLAN: For her shortness of breath, abdominal pain and back pain, the patient is currently on Dilaudid basal rate of 0.2 mg per hour with a bolus of 0.4 mg every 10 minutes as needed, which she has been receiving about 12 to 13 boluses in the past couple of days. Would recommend to increase the basal rate to 0.4 mg per hour basal and continue the bolus at 0.4 mg every 10 minutes with a lockout of 4 mg in 4 hours and continue to evaluate. 2. Fever. The patient did have a low-grade fever yesterday about 99.1. She is at high risk for infections due to neutropenia and she did receive Tylenol 650 mg tablet after which the temperature decreased to 98.4, so recommend to continue to monitor. 3. Insomnia. The patient has been having issues with insomnia for which Ativan has been started 1 mg at bedtime yesterday, which she did receive last night and slept well after that. Recommend to continue to monitor. 4. The patient is currently DNR without any aggressive treatment measures or any intubation. All the questions and concerns of the patient and several family members including brother have been addressed and answered, and they are aware that [facility] is available 24 hours a day for any questions or change in condition. Will consider discharge planning if the patient continues to be stable in the next couple of days. Dictated By: CHRIS MUNOZ MD PK/NTS Conf#: [id number] DID#: [id number] CC: ELEONORA SCHROEDER MD;*EndCC* MTDD
--- NOTE | 2019-02-15 06:36 | PN ---
DATE: 02/13/2019 SUBJECTIVE: The patient's pain appears to be much better controlled since yesterday after increasing the Dilaudid basal rate to 0.2 hour. Her bolus had also been increased to 0.4 mg every 10 minutes as needed, after which she did receive about 13 bolus doses since yesterday after the increase. Currently, in the past 4 hours, she has not received any boluses except for 1 dose on my visit. Currently, her pain appears to be well controlled. She denies any complaints of any abdominal pain or back pain, which she did complain yesterday. She also has issues with occasional shortness of breath, but currently she says her breathing is much better today. She has been started on DuoNeb inhalation every 4 hours as needed, which she did receive 3 doses yesterday, but states that it does not help her significantly. Her oxygen is currently at 5 liters via nasal cannula. She did get out of bed to use a bedside commode yesterday, but had some epistaxis. As per her brother, she was picking her nose also at that time, and she felt dizzy and she was placed back in bed. She did have a bowel movement yesterday and having minimal urine output. Her p.o. intake continues to decrease. She has not had anything to eat today and yesterday she had very minimal p.o. intake. MEDICATIONS: She continues to be on the following medications: 1. Dilaudid basal rate of 0.2 mg per hour and bolus of 0.4 mg every 10 minutes as needed. 2. DuoNeb inhalation every 4 hours as needed. 3. Lorazepam 1 mg every 2 hours as needed for severe anxiety, 0.5 mg every 6 hours as needed for moderate anxiety and, 0.25 mg every 6 hours as needed for mild anxiety. 4. Zofran 4 mg every 6 hours as needed. 5. Tylenol 650 mg with suppository and a tablet every 6 hours as needed. 5. Bisacodyl suppository 10 mg every day as needed. 6. Atropine sulfate 1%, 2 drops every 4 hours as needed. PHYSICAL EXAMINATION VITAL SIGNS: Temperature 98.7, heart rate 92 per minute and regular, respirations 20 per minute and regular, blood pressure 83/52, saturating 94% on 5 liters via nasal cannula. GENERAL: The patient is an obese female who is lying comfortably in bed, in no apparent distress. HEENT: Slight pallor noted. Icterus present. NECK: Supple without any jugular venous distention or lymphadenopathy. CARDIOVASCULAR: S1, S2 present normally. Regular rate and rhythm without any murmurs, rubs, or gallops. LUNGS: Clear to auscultation bilaterally without any wheezes, rhonchi or rales. ABDOMEN: Soft, nontender, bowel sounds present normally. EXTREMITIES: 3+ pedal edema bilaterally. SKIN: The patient with a small ulcer on the left campuzano, which as per the patient's brother has been present for 3 weeks without any significant change. NEUROLOGIC: The patient is awake and alert, oriented x2, able to answer questions appropriately without any obvious focal neurological deficit, but with generalized weakness. 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 She has been having issues with abdominal pain, back pain, as well as intermittent episodes of shortness of breath, and she also endorses having issues with insomnia. PLAN: For abdominal and back pain: The patient's Dilaudid drip has been increased to 0.2 mg yesterday and her bolus has also been increased to 0.4 mg every 10 minutes as needed. She did receive over 13 boluses since yesterday. Currently, the patient appears much more comfortable and not excessively sedated. So would recommend to continue the current dose without any changes. Shortness of breath: The patient does have shortness of breath intermittently. She is currently on Oxygen at 5 liters by nasal cannula and also has DuoNeb inhalation every 4 hours as needed, which she did receive about 3 doses yesterday, but without any significant relief. I discussed with the patient, her brother and several family members who were at bedside including the patient's sister Aissatou, that the Dilaudid can also be used for shortness of breath bolus dose for which she endorses understanding. Insomnia: The patient did have issues with insomnia yesterday, I will recommend to start her on Ativan 1 mg at bedtime as needed for insomnia and continue to evaluate. The patient is currently DNR without any aggressive treatment measures and is on comfort measures. All the questions and concerns of the patient as well as several family members including brother, as well as son and sister, and several other family members have been addressed and answered, and they are aware that [facility] is available 24 hours a day for any questions or change in condition. Dictated By: CHRIS MUNOZ MD PK/NTS Conf#: [id number] DID#: [id number] CC: TAMARA LAY MD; ELEONORA SCHROEDER MD;*EndCC* MTDD
[2019-02-15] MEDS: NEOMYC/POLYMYX/BACIT 30 GM OINT TOP SCH (07:46)
[2019-02-15] MEDS: HYDROmorphONE 0.2 MG/ML PCA IV SCH ×2 (07:47→19:02)
[2019-02-15] MEDS: LIDOCAINE 2% VISC 15 ML CUP PO PRN (17:43)
[2019-02-16] VITALS (7 sets, daily range): RESP 17–19
[2019-02-16] MEDS: ALBUTEROL/IPRATROPIUM (NEB) 3 ML AMP HHN PRN ×3 (01:41→20:32)
[2019-02-16] MEDS: LORAZEPAM 2 MG INJ IV PRN (04:15)
[2019-02-16] MEDS: LEVOFLOXACIN 500 MG TAB PO SCH (05:27)
--- NOTE | 2019-02-16 06:30 | PN ---
DATE: 02/15/1990 SUBJECTIVE: Currently the patient is comfortable since the Dilaudid basal rate was increased yesterday to 0.4 mg per hour and she continues to be on a bolus dose of 0.4 mg every 10 minutes as needed however, she did receive about 10 doses since the increase in the basal dose yesterday. Currently, she states the pain is better controlled, but she still complains of intermittent abdominal pain radiating to the back. Her p.o. intake continues to be low where she has not eaten anything today, but yesterday she did eat minimally. She continues to be bedbound, unable to be transferred out of bed . She did have a bowel movement last night as well as 1 today morning after having received Bisacodyl suppository. She did complain of dysuria yesterday for which Levaquin 500 mg was started for possible urinary tract infection as she also had fevers a day before yesterday and she currently she denies any complaint of dysuria. She does complain of pain on the inside of her mouth on the left side on the cheek area for the past few days. She continues to be on the following medications: 1. Dilaudid basal rate of 0.4 mg per hour and bolus of 0.4 mg 15 minutes as needed. 2. DuoNeb inhalation every 4 hours as needed. She did receive over 5 doses since yesterday. 3. Lorazepam 1 mg every 2 hours as needed for severe anxiety, 0.5 mg every 6 hours as needed for moderate anxiety and 0.25 mg every 6 hours IV for mild anxiety. 4. Zofran 4 mg every 6 hours as needed. 5. Tylenol 650 mg suppository tablet every 6 hours as needed. 6. Bisacodyl suppository 10 mg every day as needed. 7. Atropine sulfate 1%, 2 drops every 4 hours as needed. PHYSICAL EXAMINATION: VITAL SIGNS: Temperature 98.6, heart rate 96 per minute, respirations 24 per minute, blood pressure 90/54. GENERAL: The patient is an obese female who is lying comfortably in bed, in no apparent distress. HEENT: Slight pallor noted icterus present. Patient with a slight ulcerated area on the left buccal area near the left lower molars. NECK: Supple without any jugular venous distention or lymphadenopathy. CARDIOVASCULAR: S1, S2 present normally. Regular rate and rhythm with no murmurs, rubs, or gallops. LUNGS: Clear to auscultation bilaterally without any wheezes, rhonchi or rales. ABDOMEN: Soft, mild tenderness in the umbilical area. Bowel sounds present normally. No voluntary guarding or rigidity. EXTREMITIES: 3+ pedal edema bilaterally. SKIN: The patient with a small open wound on her left campuzano with a yellowish base without any significant drainage or surrounding erythema, which has been present for the past few weeks without any significant change. NEUROLOGIC: Patient is awake and alert, oriented x3, able to answer questions appropriately with generalized weakness without any obvious focal neurological deficits. 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 PLAN: Abdominal and back pain. Patient's Dilaudid drip has been increased to basal rate 0.4 mg per hour and the bolus has been increased to 0.4 mg every 10 minutes as needed after which she did receive 10 bolus doses since yesterday and currently she says her pain is well controlled so recommend continue the same. 2. Shortness of breath. The patient does endorse being short of breath intermittently. She has been receiving DuoNeb inhalation every 4 hours as needed and did receive about 5 doses since yesterday, is currently on 5 liters by nasal cannula. So recommend to continue the same. I also discussed with her that she can also use the Dilaudid [place] for shortness of breath. 3. Occasional anxiety. The patient does endorse being anxious at times and did receive Ativan 0.5 mg earlier today around midnight. Discussed with her that we can schedule the Ativan at 0.5 mg every 8 hours around the clock, but the patient prefers to have it as needed and does not like it to be scheduled. 4. Mucositis: The patient does have oral mucositis in the left cheek area, we recommend start on viscous lidocaine 2% to be applied four times a day as needed and continue to evaluate. 5. Insomnia. The patient does report having issues with insomnia occasionally. She is currently on Ativan 1 mg at bedtime as needed and continue to evaluate. The patient is currently DNR without any aggressive treatment measures and only comfort measures. All the questions and concerns of the patient as well as several family members have been addressed and answered. Patient appears to be currently stable and we have already disucssed with the team social services specialist to look for SNF placement as that is where the patient's family members are interested in taking her to a SNF instead of home. So the social services specialist currently will be looking out for SNF placement. Coordinated with the nursing staff as well as [facility] staff. Dictated By: CHRIS CHEEMA/NAVYA Conf#: [id number] DID#: [id number] MTDD
[2019-02-16] MEDS: HYDROmorphONE 0.2 MG/ML PCA IV SCH ×2 (06:50→17:23)
--- NOTE | 2019-02-16 10:47 | PN ---
DATE: 02/16/2019 SUBJECTIVE: Patient's pain is better controlled, but she is very weak and lethargic and increasingly somnolent. She continues to be on a Dilaudid basal rate of 0.4 mg per hour and a bolus of 0.4 mg every 10 minutes as needed, of which she did receive about 9 bolus doses since yesterday. She does continue to have issues with shortness of breath and has been on oxygen at 5 liters by nasal cannula and also has been receiving DuoNeb inhalation, about 5 times since yesterday. She did receive Zofran earlier today morning for nausea. She also appears to be having issues with anxiety for which she is currently on Ativan 0.5 mg q.6 hours as needed, of which she did receive 4 p.r.n. doses since yesterday. She continues to have urine output and bowel movements every day. She states she still has pain due to sores in her mouth and she did receive lidocaine oral solution only once last night, MEDICATIONS: She is continued with the following medications: 1. Dilaudid basal rate of 0.4 mg per hour and bolus of 0.4 mg 10 minutes as needed. 2. Duoneb inhalation every 4 hours as needed. 2. Lorazepam 1 mg every 2 hours as needed for severe anxiety, 0.5 mg every 6 hours as needed for moderate anxiety and 0.25 mg every 6 hours IV for mild anxiety. 3. Zofran 4 mg every 6 hours as needed. 4. Tylenol 650 mg suppository every 6 hours as needed. 5. Bisacodyl suppository 10 mg every day as needed. 6. Atropine sulfate 1%, 2 drops every 4 hours as needed. 7. Oral viscous lidocaine solution 4 times a day as needed PHYSICAL EXAMINATION: VITAL SIGNS: Temperature 97.8, heart rate 88 per minute and regular, respirations 24 per minute and regular, blood pressure 84/48. GENERAL: The patient is an obese female who is lying comfortably in bed, in no apparent distress. HEENT: Slight pallor noted. Icterus present. Patient with a small ulcer on the left cheek near the left lower molar area. NECK: Supple without any jugular venous distention or lymphadenopathy. CARDIOVASCULAR: S1, S2 present normally. Regular rate and rhythm without any murmurs, rubs, or gallops. LUNGS: Clear to auscultation bilaterally without any wheezes, rhonchi or rales. ABDOMEN: Soft, nontender, bowel sounds present normally. No voluntary guarding or rigidity. EXTREMITIES: 3+ pedal edema bilaterally. SKIN: The patient has a small open lesion on left campuzano with purulent material and has been present for the past few weeks without any change. NEUROLOGIC: Patient is awake and alert, oriented x3, able to answer questions appropriately without any obvious focal neurological deficits, but with generalized weakness. ASSESSMENT AND PLAN: Ms. Munguia is a 53-year-old female with past medical history significant for high-grade neuroendocrine tumor involving the liver and lung, status post 1 cycle of chemotherapy of carboplatin, etoposide, who was admitted to the hospital with neutropenic sepsis and severe anemia and subsequently has been admitted to the inpatient hospice unit as her condition has continued to deteriorate and she does have issues with occasional back and abdominal pain as well as shortness of breath and anxiety. PLAN: For abdominal and back pain, The patient continues to be on a Dilaudid drip to basal rate of 0.4 mg per hour as well as bolus of 0.4 mg every 10 minutes as needed, of which she did receive about 9 bolus doses since yesterday and currently the pain is well controlled on current regimen, so recommend continue same. Occasional anxiety. Patient currently does have issues with occasional anxiety for which the patient did receive Ativan 0.5 mg 4 doses since yesterday. She is currently on Ativan 0.5 mg every 6 hours as needed. So recommend to continue the same. Mucositis. The patient does have mucositis inside the left cheek near the lower molars. She is currently on viscous lidocaine 2% to be applied four times a day as needed. She did receive only one dose yesterday. Would recommend scheduling it half an hour before meal times. The patient is currently DNR without any aggressive treatment measures and is only on comfort measures. No family at bedside. Currently, all of the patient questions and concerns of the patient have been addressed and answered, and she is aware that [facility] will be available 24 hours and if any question change in condition. Currently, she is still pending SNF placement and social sciences chair is looking for it. Dictated By: CHRIS CHEEMA/NAVYA Conf#: [id number] DID#: [id number] [facility]
[2019-02-16] MEDS: NEOMYC/POLYMYX/BACIT 30 GM OINT TOP SCH (13:07)
[2019-02-16] MEDS: LIDOCAINE 2% VISC 15 ML CUP PO PRN (13:34)
[2019-02-16] MEDS: BISACODYL 10 MG SUPP PR PRN (18:16)
[2019-02-17] VITALS (7 sets, daily range): BP systolic 89–105; BP diastolic 53–55; PULSE 101; RESP 17–24
[2019-02-17] MEDS: ALBUTEROL/IPRATROPIUM (NEB) 3 ML AMP HHN PRN ×3 (00:42→14:37)
[2019-02-17] MEDS: HYDROmorphONE 0.2 MG/ML PCA IV SCH ×3 (04:09→23:09)
[2019-02-17] MEDS: LEVOFLOXACIN 500 MG TAB PO SCH (05:36)
[2019-02-17] MEDS: NEOMYC/POLYMYX/BACIT 30 GM OINT TOP SCH (09:12)
[2019-02-17] MEDS: LIDOCAINE 2% VISC 15 ML CUP PO SCH ×2 (17:30→18:08)
[2019-02-17] MEDS: LORAZEPAM 2 MG INJ IV PRN (21:39)
[2019-02-18 00:10] VITALS: RESP 19
[2019-02-18] MEDS: LEVOFLOXACIN 500 MG TAB PO SCH (05:02)
[2019-02-18] MEDS: LORAZEPAM 2 MG INJ IV PRN ×2 (05:02→10:01)
[2019-02-18] MEDS: LIDOCAINE 2% VISC 15 ML CUP PO SCH ×3 (07:00→20:39)
--- NOTE | 2019-02-18 07:19 | PN ---
DATE: 02/17/2019 HISTORY OF PRESENT ILLNESS: Currently, the patient states that she did have significant pain last night. She continues to be on a Dilaudid basal rate of 0.4 mg per hour and 0.4 mg every 10 minutes as needed. She did receive about 14 bolus doses since yesterday. She said she does have pain when her abdomen is touched. She continues to have issues with occasional shortness of breath, for which she is currently on oxygen at 5 liters via nasal cannula and also has DuoNeb inhalation every 4 hours as needed, of which she did receive about 4 doses since yesterday. She currently denies any complaints of nausea, vomiting or dysuria. Her p.o. intake continues to be very low only a few bites. She did have a bowel movement earlier today. She endorses being occasionally anxious for which she has been receiving lorazepam as needed, continues to have minimal urine output. She continues to be bedbound, unable to transfer out of bed due to increasing weakness. MEDICATIONS: She is currently on the following medications: 1. Dilaudid basal rate of 0.4 mg per hour and bolus of 0.4 mg every 10 minutes as needed. 2. DuoNeb inhalation every 4 hours as needed. 3. Lorazepam 1 mg every 2 hours as needed for severe anxiety, 0.5 mg every 6 hours as needed for moderate anxiety and 0.25 mg every 6 hours as needed for mild anxiety. 4. Zofran 4 mg every 6 hours as needed. 5. Tylenol 650 mg suppository every 6 hours as needed. 6. Bisacodyl suppository 10 mg every day as needed. 7. Atropine 1%, 2 drops every 4 hours as needed. 8. Levaquin 500 mg once a day every day. 9. Zofran 4 mg every 6 hours as needed. PHYSICAL EXAMINATION: VITAL SIGNS: Temperature 99.2, heart rate 96 per minute and regular, respirations 24 per minute and regular, blood pressure 89/53. Blood pressure earlier today at 8:35 a.m. was 105/55. GENERAL: The patient is currently obese female who is awake and alert, oriented x3, able to answer questions appropriately, in no apparent distress. HEENT: Slight pallor noted. Icterus present. No epistaxis. The patient continues to have a slightly ulcerated lesion on the left inner cheek as well as slightly inflamed on the right inner cheek. NECK: Supple without any jugular venous distention or lymphadenopathy. CARDIOVASCULAR: S1, S2 present, normally Regular rate and rhythm without any murmurs, rubs or gallops. LUNGS: Clear to auscultation bilaterally without any wheezes, rhonchi or rales. ABDOMEN: Soft, slight tenderness present in the umbilical area on palpation, but no voluntary guarding or rigidity. Bowel sounds are present normally. EXTREMITIES: A 3+ pedal edema bilaterally. SKIN: The patient has a small open lesion on the left campuzano with purulent slough which has been present for the past few weeks without any significant drainage. NEUROLOGIC: The patient is awake and alert, oriented x3, able to answer questions appropriately with no gross focal neurological deficits. ASSESSMENT AND PLAN: 1. Mrs. 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 She was admitted to the hospital with neutropenic sepsis and severe anemia and subsequently has been admitted to the inpatient hospice unit as her condition continued to deteriorate and she does have occasional issues with abdominal, back pain, occasional anxiety and shortness of breath. 2. Abdominal back pain. The patient is currently on Dilaudid drip at basal rate of 0.4 mg per hour as well as a bolus rate of 0.4 mg every 10 minutes as needed. Also, she did receive about 14 bolus doses since yesterday. She did complain of increased pain at night and prefers to increase the Dilaudid basal rate so recommend to increase the Dilaudid basal rate to 0.6 mg per hour as well as increase a bolus to 0.6 mg every 10 minutes as needed. 3. Occasional anxiety. The patient does have issues of occasional anxiety for which she is currently on Ativan 0.5 mg every 6 hours as needed as well as 0.25 mg every 6 hours as needed. She received 0.25 mg earlier today. She prefers to keep it as needed. I recommend to continue to monitor. 4. Shortness of breath. The patient does have issues with occasional shortness of breath for which she is currently on oxygen at 5 liters by nasal cannula and also has DuoNeb inhalation every 4 hours as needed. Unsure how much significant relief the DuoNeb inhalation is providing her. I discussed with her that she can also use a bolus dose of the Dilaudid to help with the shortness of breath for which she verbalized understanding. 5. Mucositis. The patient does have mucositis on the bilateral inner cheeks and she is currently on viscous lidocaine 2% to be applied 4 times a day as needed, but I would recommend to schedule it half an hour before meal times. 6. The patient continues to be DNR without any aggressive treatment measures and is on comfort measures. Currently, the patient's sister Aissatou is at bedside and also spoke to the patient's niece, Sydney, over the phone that she is willing to take the patient to home as the patient's sister Aissatou was taking care of her at home, so we will plan on discharge planning to the patient's home tomorrow. I correlated with the patient's nurse as well as with [facility] staff. Dictated By: CHRIS MUNOZ MD PK/NTS Conf#: [id number] DID#: [id number] CC: AALIYAH BUTLER MD;*EndCC* MTDD
[2019-02-18] MEDS: HYDROmorphONE 0.2 MG/ML PCA IV SCH ×2 (09:06→17:49)
[2019-02-18] MEDS: NEOMYC/POLYMYX/BACIT 30 GM OINT TOP SCH (15:20)
[2019-02-18 20:18] VITALS: RESP 18
[2019-02-18 22:03] VITALS: RESP 18
[2019-02-19] VITALS: RESP 16
[2019-02-19] MEDS: HYDROmorphONE 0.2 MG/ML PCA IV SCH ×2 (01:39→09:59)
[2019-02-19 02:00] VITALS: RESP 16
[2019-02-19 02:23] VITALS: RESP 16
[2019-02-19 04:00] VITALS: RESP 16
[2019-02-19 06:00] VITALS: RESP 18
--- NOTE | 2019-02-19 06:26 | PN ---
DATE: 02/18/2019 SUBJECTIVE: The patient's pain is much comfortable than yesterday after increasing the Dilaudid basal rate to 0.6 mg/hour as well as a bolus rate to 0.6 mg/hour. As per the patient, she pressed her bolus dose only once and currently, her pain appears well controlled. She denies any pain currently. She does appear to be having occasional episodes of anxiety for which she has been receiving Ativan intermittently. She did receive 1 mg today morning around 10:00 a.m. and 0.5 mg computer programming professor today. Currently, she is slightly sedated from the medication, but she is easily arousable, able to answer questions appropriately with occasional confusion. She continues to have very minimal p.o. intake, only a few bites of food, continues to be bedbound and having episodes of shortness of breath for which she receives oxygen at 5 liters via nasal cannula continuously. MEDICATIONS: She is currently on the following medications: 1. Dilaudid basal rate of 0.6 mg/hour and bolus of 0.6 mg every 10 minutes as needed. 2. DuoNeb inhalation every 4 hours as needed. 3. Lorazepam 1 mg every 2 hours as needed for severe anxiety, 0.5 mg every 6 hours as needed for moderate anxiety and 0.25 mg every 6 hours as needed for mild anxiety. 4. Zofran 4 mg every 6 hours as needed. 5. Tylenol suppository 650 mg every 6 hours as needed. 6. Bisacodyl suppository 10 mg as needed. 7. Atropine 1% two drops every 4 hours as needed. 8. Levaquin 500 mg once a day. PHYSICAL EXAMINATION: VITAL SIGNS: Temperature 97.4, heart rate 99 per minute and regular, respirations 20 per minute and regular, blood pressure 100/62. GENERAL: The patient is an obese female who is lying comfortably in bed, in no apparent distress, slightly sleepy but able to answer questions appropriately. HEENT: Slight pallor is noted. Mild icterus present. No epistaxis. The patient's oral mucositis lesions appear to be improving and she has been receiving lidocaine viscous solution as needed. NECK: Supple without any jugular venous distention or lymphadenopathy. CARDIOVASCULAR: S1, S2 present normally. Regular rate and rhythm without any murmurs, rubs or gallops. LUNGS: Clear to auscultation bilaterally without any wheezes, rhonchi or rales. ABDOMEN: Soft, slight tenderness present in the umbilical area. No voluntary guarding or rigidity. Bowel sounds are present normally. EXTREMITIES: A 3+ pedal edema bilaterally. SKIN: The patient has a small open lesion on the left campuzano with purulent material which has been present for the past few weeks without any significant drainage. NEUROLOGIC: The patient is awake and alert, oriented x3, but does appear to be lethargic and without any obvious focal neurological deficits, but generalized weakness. ASSESSMENT: Ms. 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 PLAN: 1. Abdominal and back pain. The patient's Dilaudid drip has been increased yesterday to 0.6 mg/hour basal rate as well as bolus has also been increased to 0.6 mg every 10 minutes as needed. Her pain currently appears to be well controlled on this current regimen and received only one bolus dose so I recommend to continue to monitor. 2. Occasional shortness of breath. The patient does have issues of occasional shortness of breath for which she is currently on oxygen at 5 liters via nasal cannula continuously and also DuoNeb inhalation every 4 hours as needed. She did receive 3 doses yesterday, so I recommend to continue the same. 3. Occasional anxiety. The patient also has issues of occasional anxiety for which she is currently on Ativan. She did receive Ativan 1 mg earlier today around 10:00 a.m. and also had 0.5 mg in the computer programming professor at 5:00 a.m., so I recommend to continue the same. 4. Mucositis. The patient does have mucositis on the bilateral cheeks and is currently on viscous lidocaine solution, 2% to be applied 4 times a day which is to be scheduled before meals, but patient has been receiving this intermittently and states it does help with the pain, so I recommend to continue the same. 5. The patient continues to be DNR without any aggressive treatment measures and is on comfort measures. All of the questions and concerns of the patient as well as sister, Aissatou, who is currently at bedside have been addressed and answered and they are aware that [facility] will be available 24 hours and if any questions or change in condition. The patient currently appears to be stable for discharge to home and the patient's sister, Aissatou, has agreed to take care of her. Dictated By: CHRIS MUNOZ MD PK/NTS Conf#: [id number] DID#: [id number] CC: AALIYAH BUTLER MD;*EndCC* MTDD
[2019-02-19] MEDS: LEVOFLOXACIN 500 MG TAB PO SCH (06:38)
[2019-02-19] MEDS: LIDOCAINE 2% VISC 15 ML CUP PO SCH ×2 (07:45→11:55)
[2019-02-19] MEDS: NEOMYC/POLYMYX/BACIT 30 GM OINT TOP SCH (08:43)
[2019-02-19] MEDS: LORAZEPAM 2 MG INJ IV PRN ×2 (08:44→14:01)
[2019-02-19] MEDS ORDERED: HYDROmorphONE 2 MG/ML SYG IV STA (13:30)
--- NOTE | 2019-02-19 15:41 | PN ---
DATE: 02/19/2019 SUBJECTIVE: Patient's pain continues to be well controlled and she is currently on Dilaudid basal rate of 0.6 mg/hour with a bolus of 0.6 mg q.10 minutes as needed and she has not received any bolus doses yesterday. She did receive 1 bolus dose today on my visit as she is complaining of back pain, with adequate resolution. She continues to have very minimal p.o. intake, only a few bites of the food. Continues to be bedbound and unable to transfer out of bed. She did have 2 bowel movements yesterday, but none today. She states the sores in her mouth are getting better. She continues to be on oxygen at 5 liters via nasal cannula for shortness of breath. She is awake and alert, oriented x3, able to answer questions appropriately. MEDICATIONS: 1. Lidocaine 15 mL 1/2 hour before meals. 2. Levaquin 500 mg once a day. 3. Dilaudid 0.6 mg basal rate per hour and bolus of 0.6 mg every 10 minutes as needed. 4. Lorazepam 1 mg at bedtime as needed for insomnia as well as every 2 hours as needed for severe anxiety, 0.5 mg every 6 hours as needed for moderate anxiety and 0.5 mg every 6 hours as needed for mild anxiety. 5. DuoNeb inhalation every 4 hours as needed. 6. Atropine sulfate 1%, 2 drops every 4 hours as needed. 7. Tylenol suppository 650 mg every 6 hours as needed. 8. Bisacodyl suppository 10 mg daily as needed. 9. Tylenol 650 mg tablets every 4 hours as needed. 10. Zofran 4 mg every 6 hours as needed. PHYSICAL EXAMINATION: VITAL SIGNS: The patient is afebrile, blood pressure 97/53, heart rate 95 per minute and regular, respirations 16 per minute and regular, saturating 96% on 5 liters by nasal cannula. GENERAL: The patient is an obese female who is lying comfortably in bed, in no apparent distress. HEENT: Slight pallor present. Mild icterus present. The patient's oral mucositis lesions appear to be improving. NECK: Supple without any jugular venous distention or lymphadenopathy. CARDIOVASCULAR: S1, S2 present normally. Regular rate and rhythm without any murmurs, rubs, or gallops. LUNGS: Clear to auscultation bilaterally without any wheezes, rhonchi or rales. ABDOMEN: No voluntary guarding or rigidity. Bowel sounds present normally. EXTREMITIES: 3+ pedal edema bilaterally. SKIN: The patient with a small open wound on the left campuzano with yellowish purulent material which has been chronically present and stable. NEUROLOGIC: Patient is awake and alert, oriented x3 without any obvious focal neurological deficits, but generalized weakness. ASSESSMENT AND PLAN: Ms. 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 She was admitted to the hospital with neutropenic sepsis, severe anemia and subsequently has been admitted to the inpatient hospice unit. Her condition has continued to deteriorate and currently she has been having issues with abdominal pain, back pain, shortness of breath and occasional anxiety. For abdominal and back pain, the patient's Dilaudid has been increased 2 days ago to 0.6 hour basal rate as well as bolus of 0.6 q. 10 minutes as needed. She has not received any bolus doses yesterday, but did receive 1 dose on this visit and currently pain is well controlled on the current regimen, so we will recommend to continue to monitor. Occasional anxiety. The patient does have issues occasional anxiety for which she has been receiving Ativan as needed, which did receive 1 mg earlier today at 8:44 a.m. and 1 dose yesterday at 10:00. She prefers not to receive any routine doses of Ativan.at this time, so recommend to continue the same. Occasional shortness of breath. The patient continues to have issues with occasional shortness of breath, she is on oxygen at 5 liters by nasal cannula and also DuoNeb inhalation every 4 hours as needed. Recommend continue to monitor. Mucositis. The patient's mucositis is currently improving on the lidocaine 15 mL prior to meal time, so recommend to continue same. Patient continues to be DNR without any aggressive treatment measures and comfort measures. The patient is pending discharge today to her home to live with her sister Aissatou, who will be taking care of her. Dictated By: CHRIS CHEEMA/NAVYA Conf#: [id number] DID#: [id number] MTDD
--- NOTE | 2019-03-02 01:02 | DS ---
DATE OF ADMISSION: 02/09/2019 DATE OF DISCHARGE: 02/19/2019 PRIMARY DIAGNOSIS: High-grade neuroendocrine tumor involving the liver and lungs. HOSPITAL COURSE: Ms. 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 She was initially started on chemotherapy with carboplatin, etoposide started on 02/02/2019 and subsequently admitted to the [facility] for severe sepsis from gram-negative rods in the urine as well as severe anemia. She has since received several blood transfusions and broad spectrum antibiotics for infections. The patient has continued to decline where she has been considered not a candidate for any more chemotherapy and since been transitioned to the inpatient hospice unit on 02/11/2019. In patient hospice unit, the patient had been having abdominal pain, back pain as well as intermittent shortness of breath for which she has been started on Dilaudid drip which was subsequently increased and titrated for pain control. The patient was subsequently deemed stable after the course of several days and subsequently has been discharged to home on 02/19/2019 under [facility]. Dictated By: CHRIS MUNOZ MD PK/NTS Conf#: [id number] DID#: [id number] CC: AALIYAH BUTLER MD;*EndCC* MTDD
== END 2019-02-19 16:48 | disposition hospice, home (50) | DRG 871 ==
LOC: E/R 16:07 → ICU 18:15 → 2NE 02-11 20:21
PROVIDERS: ADMIT Internal Medicine; ATTEND Internal Medicine
PROC: 30233N1 Transfusion of Nonautologous Red Blood Cells into Peripheral Vein, Percutaneous Approach (ICD-10-PCS; principal; 2019-02-09)
DX: A41.9 Sepsis, unspecified organism (principal); R57.1 Hypovolemic shock; D61.810 Antineoplastic chemotherapy induced pancytopenia; C22.9 Malignant neoplasm of liver, not specified as primary or secondary; N39.0 Urinary tract infection, site not specified; C7B.8 Other secondary neuroendocrine tumors; R18.8 Other ascites; C78.00 Secondary malignant neoplasm of unspecified lung; R65.20 Severe sepsis without septic shock; I95.9 Hypotension, unspecified; D64.81 Anemia due to antineoplastic chemotherapy; E03.9 Hypothyroidism, unspecified; N20.0 Calculus of kidney; E66.9 Obesity, unspecified; Z68.38 Body mass index [BMI] 38.0-38.9, adult
CPT/HCPCS: 36430; 71045; 71250; 74176; 76700; 80053; 80061; 81001; 82270; 83036; 83605; 83690; 83735; 84100; 84443; 84484; 85025; 85610; 85730; 86850; 86900; 86901; 86920; 87045; 87081; 87086; 93005; 94640; 94664; 96374; A4310; J0696; J1170; J2060; J2270; J2405; J2543; J3010; J7030; P9016